=== PATIENT | male | born 1970 | race Hispanic/Latino ===

== ENCOUNTER 2017-05-21 22:38 | Inpatient (IN) | payer MEDICAID, OTHER ==
[2017-05-21] MEDS ORDERED: Lactated Ringer's 1,000 ML IV ONE (23:23)
[2017-05-21 23:37] LABS: ACETAMINOPHEN < 10.0 ug/mL (10.0-30.0); SALICYLATE < 1.0 mg/dL 1
[2017-05-21] MEDS ORDERED: levETIRAcetam 500 MG in Sodium Chloride 0.9% 100 ML IVPB STA (23:57)
--- NOTE | 2017-05-22 00:45 | C.PDOC ---
Time Seen by Provider: 05/21/17 23:04 Chief Complaint (Nursing): Substance Abuse Past Medical History Vital Signs: Last Vital Signs Temp Pulse 113 H 05/21/17 23:08 Resp 16 05/21/17 23:08 BP 106/56 L 05/21/17 23:08 Pulse Ox 99 05/21/17 23:08 - Medical History PMH: Seizures (?) Family History: States: Unknown Family Hx - Social History Hx Alcohol Use: Yes Hx Substance Use: No - Immunization History Hx Tetanus Toxoid Vaccination: No Hx Influenza Vaccination: No Hx Pneumococcal Vaccination: No ED Course And Treatment - Laboratory Results Lab Interpretation: Normal (neg etoh/tox) O2 Sat by Pulse Oximetry: 99 - Radiology CXR: Interpreted by Me CXR Interpretation: Yes: No Acute Disease - Other Rad CT head X-Ray: Read By Radiologist (L frontal encephalomalacia with ? tiny hyperdense area in the center.) Medical Decision Making Medical Decision Making: alcohol withdrawal seizure (known alcoholic) vs underlying epilepsy (L frontal encephalopthy) Alicia started 0030: d/w Dr. Puckett- Hospitalist covering self-pay pts, ok to tele Obs. Disposition Doctor Will See Patient In The: Hospital Counseled Patient/Family Regarding: Studies Performed, Diagnosis - Disposition Disposition: HOSPITALIZED Disposition Time: 00:45 Condition: GOOD - Clinical Impression Clinical Impression: Seizure
--- NOTE | 2017-05-22 00:59 | CT ---
EXAM: CT Head Without Intravenous Contrast CLINICAL HISTORY: 46 years old, male; Pain; Headache and other: Detox; Additional info: Seizure, alcoholic, ? bleed/trauma TECHNIQUE: Axial computed tomography images of the head/brain without intravenous contrast. All CT scans at this facility use one or more dose reduction techniques, viz.: automated exposure control; ma/kV adjustment per patient size (including targeted exams where dose is matched to indication; i.e. head); or iterative reconstruction technique. 859 images are submitted. Coronal and sagittal reformatted images were created and reviewed. COMPARISON: No relevant prior studies available. FINDINGS: Brain: Left frontal lobe encephalomalacia. Cerebral and cerebellar volume loss. Patchy hypodensity is seen in the periventricular and subcortical white matter. No hemorrhage. Ventricles: Unremarkable. No ventriculomegaly. Bones/joints: There is comminuted fracture deformity of the nasal bones. Correlation with patient's clinical examination and history may be helpful. Soft tissues: Unremarkable. Sinuses: Moderate left maxillary sinus disease. Patchy sinus disease. Mastoid air cells: Unremarkable. No mastoid effusion. Orbits: The globe and lens are intact. Dental: Multifocal left mandibular and maxillary periodontal and periapical lucency with retained roots and multifocal dental carious lesions. IMPRESSION: 1. No evidence of an acute intracranial hemorrhage, midline shift or mass effect is identified. 2. Multifocal left mandibular and maxillary periodontal and periapical lucency with retained roots and multifocal dental carious lesions. 3.There is comminuted fracture deformity of the nasal bones. Correlation with patient's clinical examination and history may be helpful.
[2017-05-22] MEDS ORDERED: levETIRAcetam 500 MG in Sodium Chloride 0.9% 100 ML IVPB SCH (01:00)
[2017-05-22 02:24] LABS: BARBITURATES, UR NEGATIVE (NEGATIVE); BENZODIAZEPINES, UR NEGATIVE (NEGATIVE); OPIATES, UR NEGATIVE (NEGATIVE); PHENCYCLIDINE, UR NEGATIVE (NEGATIVE)
[2017-05-22 03:05] LABS: BASO # 0.1 K/uL (0.0-0.2); BASO % 0.7 % (0.0-2.0); EOS % 0.1 % (0.0-4.0); HEMOGLOBIN 13.3 g/dL (12.0-18.0); LYMPH # 1.3 K/uL (1.0-4.3); MEAN CELL VOLUME 89.1 fL (80.0-94.0); MEAN CORPUSCULAR HEMOGLOBIN 29.5 pg (27.0-31.0); MEAN CORPUSCULAR HGB CONC 33.2 g/dL (33.0-37.0); MEAN PLATELET VOLUME 10.3 fL (7.2-11.7); MONO # 0.6 K/uL (0.0-0.8); MONO % 5.2 % (0.0-10.0); RBC 4.5 Mil/uL (4.40-5.90); RED CELL DISTRIBUTION WIDTH 14.3 % (11.5-14.5)
[2017-05-22] MEDS ORDERED: Thiamine 100 mg/ml Inj IV ONE (03:07)
[2017-05-22 03:16] LABS: SQUAMOUS EPITHIAL < 1 /hpf (0-5); URINE BILIRUBIN NEGATIVE (NEGATIVE); URINE BLOOD NEGATIVE (NEGATIVE); URINE CLARITY Clear (Clear); URINE COLOR Yellow (YELLOW); URINE GLUCOSE (UA) NORMAL (Normal); URINE HYALINE CAST 0-2 /lpf (0-2); URINE LEUKOCYTE ESTERASE NEG Leu/uL (Negative); URINE NITRATE NEGATIVE (NEGATIVE); URINE PROTEIN 1+ mg/dL (NEGATIVE); URINE UROBILINOGEN NORMAL mg/dL (0.2-1.0)
[2017-05-22] MEDS ORDERED: Thiamine 100 mg/ml Inj ONE (03:21)
[2017-05-22] MEDS: Sodium Chloride 0.9% 1,000 ML IV SCH ×2 (03:28→12:40)
[2017-05-22 03:31] LABS: ALB/GLOB RATIO 1.1 (1.0-2.1); ALT/SGPT 29 U/L (21-72); AST/SGOT 27 U/L (17-59); BLOOD UREA NITROGEN 15 mg/dL (9-20); CALCIUM 8.3 mg/dl (8.6-10.4); GFR AFRICAN-AMERICAN > 60; GFR NON-AFRICAN AMERICAN > 60; MAGNESIUM 1.9 mg/dL (1.6-2.3)
--- NOTE | 2017-05-22 03:37 | CP.PCM.HP ---
<Lindy Billy - Last Filed: 05/22/17 03:29> History of Present Illness - History of Present Illness History of Present Illness: HPI: 46M with PMH of seizures presents to the ED via ambulance for witnessed seizure. Patient was post ictal and unresponsive in the ED and had 2 additional seizures in the ED. Patient was given ativan 2 mg after the second seizure and he continues to be unresponsive however he moves with painful stimuli. ROS unattainable. PMH: alcoholism per EMR Present on Admission - Present on Admission Any Indicators Present on Admission: No Review of Systems - Review of Systems Systems not reviewed;Unavailable: Altered Mental Status Past Patient History - Past Social History Smoking Status: Never Smoked - NEUROLOGICAL Hx Seizures: Yes (?) - PSYCHIATRIC Hx Substance Use: No - SURGICAL HISTORY Other/Comment: SURGICAL HX UNKNOWN Meds Allergies/Adverse Reactions: Allergies Allergy/AdvReac Type Severity Reaction Status Date / Time No Known Allergies Allergy Verified 05/21/17 06:30 Physical Exam - Constitutional Appears: Unkempt Additional comments: unresponsive - Head Exam Head Exam: ATRAUMATIC Additional comments: flattening of the posterior parietal area - Eye Exam Eye Exam: PERRL - Respiratory Exam Respiratory Exam: Clear to Auscultation Bilateral, NORMAL BREATHING PATTERN. absent: Rales, Rhonchi, Wheezes - Cardiovascular Exam Cardiovascular Exam: Tachycardia, REGULAR RHYTHM, +S1, +S2 - GI/Abdominal Exam GI & Abdominal Exam: Normal Bowel Sounds, Soft. absent: Distended - Extremities Exam Extremities exam: Positive for: normal capillary refill Additional comments: erythema of hands b/l - Neurological Exam Neurological exam: Altered Additional comments: Jena Coma Scale: 7 (eyes 1, verbal 1, motor 5) - Skin Skin Exam: Dry, Intact, Normal Color, Warm Results - Vital Signs Recent Vital Signs: Last Vital Signs Temp Pulse 113 H 05/21/17 23:08 Resp 16 05/21/17 23:08 BP 106/56 L 05/21/17 23:08 Pulse Ox 99 05/22/17 02:58 - Labs Result Diagrams: 05/22/17 02:59 Labs: Laboratory Results - last 24 hr 05/21/17 05/21/17 05/22/17 23:18 23:18 01:56 WBC RBC Hgb Hct MCV MCH MCHC RDW Plt Count MPV Neut % (Auto) Lymph % (Auto) [place] % (Auto) Eos % (Auto) Baso % (Auto) Neut # Lymph # [place] # Eos # Baso # Salicylates < 1.0 Urine Opiates Screen Negative Urine Methadone Screen Negative Acetaminophen < 10.0 L Ur Barbiturates Screen Negative Ur Phencyclidine Scrn Negative Ur Amphetamines Screen Negative U Benzodiazepines Scrn Negative U Oth Cocaine Metabols Negative U Cannabinoids Screen Negative Alcohol, Quantitative < 10 05/22/17 02:59 WBC 12.0 H RBC 4.50 Hgb 13.3 Hct 40.0 MCV 89.1 D MCH 29.5 MCHC 33.2 RDW 14.3 Plt Count 230 MPV 10.3 Neut % (Auto) 83.0 H Lymph % (Auto) 11.0 L [place] % (Auto) 5.2 Eos % (Auto) 0.1 Baso % (Auto) 0.7 Neut # 10.0 H Lymph # 1.3 [place]ilton # 0.6 Eos # 0.0 Baso # 0.1 Salicylates Urine Opiates Screen Urine Methadone Screen Acetaminophen Ur Barbiturates Screen Ur Phencyclidine Scrn Ur Amphetamines Screen U Benzodiazepines Scrn U Oth Cocaine Metabols U Cannabinoids Screen Alcohol, Quantitative Assessment & Plan - Assessment and Plan (Free Text) Plan: Seizures * Seizure disorder vs alcohol withdrawal * CT head: No evidence of an acute intracranial hemorrhage, midline shift or mass effect is identified. Multifocal left mandibular and maxillary periodontal and periapical lucency with retained roots and multifocal dental carious lesions. There is comminuted fracture deformity of the nasal bones. * continue Keppra 750 MG IV BID * Ativan 1 mg IV PRN Seizure activity * Thiamine x 1 dose * NS @100/h * Neuro consult (Gloria) - recs appreciated * Swallow eval once patient becomes alert * Seizure precautions * Aspiration precautions * Monitor on telemetry - possible ICU admission * GCS: 7 - will not intubate as of now, patient saturating well even when non- rebreather mask removed Prophylaxis * Protonix IV * Heparin 5000U SC Q12h * SCDs <Cezar Puckett P - Last Filed: 05/22/17 06:30> Results - Vital Signs Recent Vital Signs: Last Vital Signs Temp 99.1 F 05/22/17 06:00 Pulse 88 05/22/17 03:44 Resp 16 05/22/17 03:44 BP 113/68 05/22/17 03:44 Pulse Ox 98 05/22/17 03:44 - Labs Result Diagrams: 05/22/17 02:59 05/22/17 02:59 Labs: Laboratory Results - last 24 hr 05/21/17 05/21/17 05/22/17 23:18 23:18 01:56 WBC RBC Hgb Hct MCV MCH MCHC RDW Plt Count MPV Neut % (Auto) Lymph % (Auto) Ch[place] % (Auto) Eos % (Auto) Baso % (Auto) Neut # Lymph # [place] # Eos # Baso # Sodium Potassium Chloride Carbon Dioxide Anion Gap BUN Creatinine Est GFR ( Amer) Est GFR (Non-Af Amer) Random Glucose Calcium Phosphorus Magnesium Total Bilirubin AST ALT Alkaline Phosphatase Total Protein Albumin Globulin Albumin/Globulin Ratio Urine Color Urine Clarity Urine pH Ur Specific [place] Urine Protein Urine Glucose (UA) Urine Ketones Urine Blood Urine Nitrate Urine Bilirubin Urine Urobilinogen Ur Leukocyte Esterase Urine WBC (Auto) Urine RBC (Auto) Ur Squamous Epith Cells Hyaline Casts Salicylates < 1.0 Urine Opiates Screen Negative Urine Methadone Screen Negative Acetaminophen < 10.0 L Ur Barbiturates Screen Negative Ur Phencyclidine Scrn Negative Ur Amphetamines Screen Negative U Benzodiazepines Scrn Negative U Oth Cocaine Metabols Negative U Cannabinoids Screen Negative Alcohol, Quantitative < 10 05/22/17 05/22/17 05/22/17 02:59 02:59 02:59 WBC 12.0 H RBC 4.50 Hgb 13.3 Hct 40.0 MCV 89.1 D MCH 29.5 MCHC 33.2 RDW 14.3 Plt Count 230 MPV 10.3 Neut % (Auto) 83.0 H Lymph % (Auto) 11.0 L [place] % (Auto) 5.2 Eos % (Auto) 0.1 Baso % (Auto) 0.7 Neut # 10.0 H Lymph # 1.3 Chilton # 0.6 Eos # 0.0 Baso # 0.1 Sodium 138 Potassium 3.7 Chloride 100 Carbon Dioxide 31 H Anion Gap 11 BUN 15 Creatinine 0.8 Est GFR ( Amer) > 60 Est GFR (Non-Af Amer) > 60 Random Glucose 81 Calcium 8.3 L Phosphorus 2.8 Magnesium 1.9 Total Bilirubin 0.9 AST 27 ALT 29 Alkaline Phosphatase 60 Total Protein 7.5 Albumin 4.0 Globulin 3.6 Albumin/Globulin Ratio 1.1 Urine Color Yellow Urine Clarity Clear Urine pH 5.0 Ur Specific [place] 1.025 Urine Protein 1+ H Urine Glucose (UA) Normal Urine Ketones Negative Urine Blood Negative Urine Nitrate Negative Urine Bilirubin Negative Urine Urobilinogen Normal Ur Leukocyte Esterase Neg Urine WBC (Auto) 1 Urine RBC (Auto) < 1 Ur Squamous Epith Cells < 1 Hyaline Casts 0-2 Salicylates Urine Opiates Screen Urine Methadone Screen Acetaminophen Ur Barbiturates Screen Ur Phencyclidine Scrn Ur Amphetamines Screen U Benzodiazepines Scrn U Oth Cocaine Metabols U Cannabinoids Screen Alcohol, Quantitative Attending/Attestation - Attestation I have personally seen and examined this patient.: Yes I have fully participated in the care of the patient.: Yes I have reviewed all pertinent clinical information: Yes Notes (Text): Assessment * Patient had back to back seizures at home then in ER responded with ativan 2mg im and keppra * H/o seizures in patient on keppra 750mg bid, h/o left frontal encephalomalacia * Clinically dry, in hospital ER for lethargy the day prior. Plan * IVF * IV keppra * Seizure, aspiration, fall precautions * EEG, neurology consult * More detailed information once patient is able to provide. * Observe in tele see orders for detail * GI/dvt prophylaxis.
[2017-05-22 07:18] LABS: BASO # 0.1 K/uL (0.0-0.2); BASO % 0.5 % (0.0-2.0); EOS % 0.2 % (0.0-4.0); HEMOGLOBIN 12.4 g/dL (12.0-18.0); LYMPH # 1.5 K/uL (1.0-4.3); LYMPH % 13.9 % (20.0-40.0); MEAN CELL VOLUME 89.8 fL (80.0-94.0); MEAN CORPUSCULAR HEMOGLOBIN 30.3 pg (27.0-31.0); MEAN CORPUSCULAR HGB CONC 33.7 g/dL (33.0-37.0); MEAN PLATELET VOLUME 9.8 fL (7.2-11.7); MONO # 0.8 K/uL (0.0-0.8); MONO % 7.8 % (0.0-10.0); NEUT # 8.2 K/uL (1.8-7.0); NEUT % 77.6 % (50.0-75.0); NRBC % 0.1 % (0.0-2.0); RBC 4.09 Mil/uL (4.40-5.90); RED CELL DISTRIBUTION WIDTH 13.9 % (11.5-14.5); WHITE BLOOD COUNT 10.6 K/uL (4.8-10.8)
[2017-05-22 07:30] LABS: ALB/GLOB RATIO 1.1 (1.0-2.1); ALBUMIN 3.5 g/dL (3.5-5.0); ALT/SGPT 41 U/L (21-72); AST/SGOT 28 U/L (17-59); BLOOD UREA NITROGEN 14 mg/dL (9-20); CALCIUM 8.1 mg/dl (8.6-10.4); GFR AFRICAN-AMERICAN > 60; GFR NON-AFRICAN AMERICAN > 60; MAGNESIUM 1.9 mg/dL (1.6-2.3)
--- NOTE | 2017-05-22 08:20 | RAD ---
PROCEDURE: CHEST RADIOGRAPH, 1 VIEW HISTORY: Detox/Psy COMPARISON: None available. FINDINGS: LUNGS: Minimal patchy increased markings at the left lung base which may represent minimal atelectasis versus subtle infiltrate. Question minimal blunting of the left costophrenic angle. Clinical correlation. PLEURA: As above. CARDIOVASCULAR: Normal. OSSEOUS STRUCTURES: No significant abnormalities. VISUALIZED UPPER ABDOMEN: Normal. OTHER FINDINGS: None. IMPRESSION: Minimal patchy increased markings at the left lung base which may represent minimal atelectasis versus subtle infiltrate. Question minimal blunting of the left costophrenic angle. Clinical correlation.
--- NOTE | 2017-05-22 11:12 | CP.PCM.PN ---
Subjective - Date & Time of Evaluation Date of Evaluation: 05/22/17 Time of Evaluation: 10:45 - Subjective Subjective: Hospitalist Progress Note Patient was seen and examined at 10:45 AM 05/22/17 ICU 14A 46 year old male who presented to the ER via EMS on 05/21/17 for the second time after he experienced Seizure at home. He was found to be unresponsive in the ER and had two witnessed seizures while in the ER. He had presented to the ER earlier in the day on 05/21/17 for alcohol intoxication but was found to be neurologically intact after observation and was discharged to home. Currently his exam was assisted by ICU Nurse Tia who speaks Vietnamese. Patient stated to me had no other medical problems other than Seizures. He states that he takes Keppra and Dilantin which are provided to him by [facility] but that he is not followed by Neurologist or a PMD. He could not provide any dosages. He stated that he has not had any surgeries. He lives alone and has a sister with whom he is not in contact with. He is not and without any children. 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 He could not provide details of his parents medical history. He stated that he was not sure about his CODE STATUS therefore he will be made full code. Upon ROS: NO chest pain NO SOB NO cough NO abdominal pain NO n/v/d/c NO burning/pain with urination NO edema NO headache Exam: Genera: He is aware of where he is, why he is here, month, year, but does not know who the president is. He is NAD. Tremulous hands noted with Asterixis HEENT: NCA (dry eschar on top of head), EOMI, PERRLA, NO cervical lymphadenopathy, NO pharyngeal erythema/exudate, NO thyromegaly, NO lacerations on tongue were noted Cardio: NS1 and NS2, NO M/R/G Resp: CTA B/L, NO R/R/W GI: BSx4, Soft, NT, ND, NO HSM, NO guarding/rebound tenderness Ext: NO edema, Capillary Refill is 2 seconds, Pulses are strong and equal Neuro: CN II through XII are grossly intact Assessment and Plan: 1). Seizure Patient is able to provide history as detailed in HPI above. However he is slow to answer most of the times and at times does not seem sure in his responses CT head: No evidence of an acute intracranial hemorrhage, midline shift or mass effect is identified. Multifocal left mandibular and maxillary periodontal and periapical lucency with retained roots and multifocal dental carious lesions. There is comminuted fracture deformity of the nasal bones. Keppra 750 mg IV Q12H Ativan 1 mg IV Q6H PRN Seizure Neurology Dr. Castro Status: Acute 2). Alcohol Withdrawl Will start Ativan taper PO once bedside swallow evaluation is performed by Nurse Tia Psychiatry Dr. Parker Thiamine 100 mg PO 1x/day Folic Acid 1 mg PO 1x/day MVI PO 1x/day Status: Acute 3). Prophylaxis Protonix 40 mg PO 1x/day Heparin 5,000 Units SC Q12H Regular Diet Imer Silveira D.O. Objective - Vital Signs/Intake and Output Vital Signs (last 24 hours): Temp Pulse Resp BP Pulse Ox 97.9 F 88 16 113/68 98 05/22/17 08:11 05/22/17 03:44 05/22/17 03:44 05/22/17 03:44 05/22/17 03:44 Intake and Output: 05/22/17 05/22/17 06:59 18:59 Intake Total 100 Output Total 300 Balance -200 - Medications Medications: Current Medications Heparin Sodium (Porcine) (Heparin) 5,000 units SC Q12 MOLLY Sodium Chloride (Sodium Chloride 0.9%) 1,000 mls @ 100 mls/hr IV .Q10H MOLLY Last Admin: 05/22/17 03:28 Dose: 100 mls/hr Levetiracetam 750 mg/ Sodium (Chloride) 107.5 mls @ 420 mls/hr IVPB Q12H MOLLY Last Admin: 05/22/17 03:31 Dose: Not Given Lorazepam (Ativan) 1 mg IVP Q6H PRN PRN Reason: Seizure activity Last Admin: 05/22/17 10:49 Dose: 1 mg Pantoprazole Sodium (Protonix Inj) 40 mg IVP DAILY MOLLY Last Admin: 05/22/17 10:49 Dose: 40 mg - Labs Labs: 05/22/17 07:09 05/22/17 07:09
[2017-05-22] MEDS: Multiple Vitamins Tab PO SCH (11:36)
--- NOTE | 2017-05-22 20:55 | CARD ---
APPROVED REPORT EKG Measurement Heart [id number] <Conclusion> Normal sinus rhythm Normal ECG
[2017-05-23] MEDS: Sodium Chloride 0.9% 1,000 ML IV SCH (00:47)
[2017-05-23 06:35] LABS: BASO % 0.3 % (0.0-2.0); EOS # 0.2 K/uL (0.0-0.7); EOS % 3.8 % (0.0-4.0); HEMOGLOBIN 12.3 g/dL (12.0-18.0); LYMPH % 32.9 % (20.0-40.0); MEAN CELL VOLUME 89.3 fL (80.0-94.0); MEAN CORPUSCULAR HEMOGLOBIN 30.2 pg (27.0-31.0); MEAN CORPUSCULAR HGB CONC 33.8 g/dL (33.0-37.0); MEAN PLATELET VOLUME 9.9 fL (7.2-11.7); MONO # 0.4 K/uL (0.0-0.8); MONO % 7.4 % (0.0-10.0); NEUT # 3.3 K/uL (1.8-7.0); NEUT % 55.6 % (50.0-75.0); NRBC % 0.1 % (0.0-2.0); RBC 4.07 Mil/uL (4.40-5.90); RED CELL DISTRIBUTION WIDTH 13.8 % (11.5-14.5); WHITE BLOOD COUNT 5.9 K/uL (4.8-10.8)
[2017-05-23 06:51] LABS: ALB/GLOB RATIO 1.6 (1.0-2.1); ALBUMIN 3.2 g/dL (3.5-5.0); ALT/SGPT 37 U/L (21-72); AST/SGOT 21 U/L (17-59); BLOOD UREA NITROGEN 14 mg/dL (9-20); CALCIUM 7.9 mg/dl (8.6-10.4); GFR AFRICAN-AMERICAN > 60; GFR NON-AFRICAN AMERICAN > 60; MAGNESIUM 1.7 mg/dL (1.6-2.3)
[2017-05-23] MEDS: Multiple Vitamins Tab PO SCH (09:15)
--- NOTE | 2017-05-23 09:21 | CP.PCM.PN ---
<Sulma Mondragon - Last Filed: 05/23/17 15:48> Subjective - Date & Time of Evaluation Date of Evaluation: 05/23/17 Time of Evaluation: 09:21 - Subjective Subjective: Medicine Progress Note for Dr. Silveira Patient was seen and examined at bedside in no acute distress. Patient reports feeling okay today and only complains of feeling cold and hungry. Patient denies having chest pain, abdominal pain, nausea, vomiting, fevers, headaches, and leg pain. Objective - Vital Signs/Intake and Output Vital Signs (last 24 hours): Temp Pulse Resp BP Pulse Ox 97.5 F L 75 16 120/75 95 05/23/17 08:00 05/23/17 08:00 05/23/17 08:00 05/23/17 08:00 05/23/17 08:00 Intake and Output: 05/23/17 05/23/17 06:59 18:59 Intake Total 1500 Output Total 1200 Balance 300 - Medications Medications: Current Medications Folic Acid (Folic Acid) 1 mg PO DAILY [facility] Last Admin: 05/23/17 09:15 Dose: 1 mg Heparin Sodium (Porcine) (Heparin) 5,000 units SC Q12 [facility] Last Admin: 05/23/17 09:15 Dose: 5,000 units Sodium Chloride (Sodium Chloride 0.9%) 1,000 mls @ 100 mls/hr IV .Q10H [facility] Last Admin: 05/23/17 00:47 Dose: 100 mls/hr Levetiracetam 750 mg/ Sodium (Chloride) 107.5 mls @ 420 mls/hr IVPB Q12H [facility] Last Admin: 05/23/17 03:05 Dose: 420 mls/hr Lorazepam (Ativan) 1 mg IVP Q6H PRN PRN Reason: Seizure activity Last Admin: 05/22/17 10:49 Dose: 1 mg Lorazepam (Ativan) 2 mg PO Q8H MOLLY PRN Reason: Taper Stop: 05/27/17 13:59 Last Admin: 05/23/17 06:00 Dose: 2 mg Multivitamins (Hexavitamin) 1 tab PO DAILY [facility] Last Admin: 05/23/17 09:15 Dose: 1 tab Pantoprazole Sodium (Protonix Inj) 40 mg IVP DAILY [facility] Last Admin: 12/12/17 10:49 Dose: 40 mg Thiamine HCl (Vitamin B1 Tab) 100 mg PO DAILY MOLLY Last Admin: 05/23/17 09:15 Dose: 100 mg - Labs Labs: 05/23/17 06:26 05/23/17 06:23 - Constitutional Appears: No Acute Distress - Head Exam Head Exam: ATRAUMATIC, NORMAL INSPECTION - Eye Exam Eye Exam: EOMI, Normal appearance - ENT Exam ENT Exam: Mucous Membranes Moist - Respiratory Exam Respiratory Exam: NORMAL BREATHING PATTERN. absent: Rales, Rhonchi, Wheezes, Respiratory Distress - Cardiovascular Exam Cardiovascular Exam: REGULAR RHYTHM, +S1, +S2 - GI/Abdominal Exam GI & Abdominal Exam: Soft, Normal Bowel Sounds. absent: Distended, Firm, Tenderness - Extremities Exam Extremities Exam: Normal Inspection - Neurological Exam Neurological Exam: Alert, Awake Additional comments: no asterixis noted - Psychiatric Exam Psychiatric exam: Flat Affect - Skin Skin Exam: Dry, Intact, Normal Color, Warm Assessment and Plan (1) Seizure Assessment & Plan: * Seizure disorder vs alcohol withdrawal * Head CT: No evidence of an acute intracranial hemorrhage, midline shift or mass effect is identified. Multifocal left mandibular and maxillary periodontal and periapical lucency with retained roots and multifocal dental carious lesions. There is comminuted fracture deformity of the nasal bones. * Chest xray PA/Lat: ordered, f/u results * Seizure precautions * Aspiration precautions * Continue to monitor on telemetry * Neuro consult (Toño) - recs appreciated * Will plan to transfer to psychiatry for detox once medically cleared and cleared by neurology. * Medications: * Continue Ativan 1 mg IV PRN Seizure activity * Continue NS @100/h * Continue Keppra 750 MG IV BID * Patient reports he used to take Keppra and Phenytoin. He reports he does not know who prescribed them or specifically where he got the prescription from; however, he says he gets them from [facility]. Called [facility] pharmacy on 05/23/17, both inpatient and outpatient, who states they do not have any record of this patient on file. * Phenytoin level: f/u results Status: Acute (2) Alcohol intoxication Assessment & Plan: * Psychiatry consulted, Dr. Parker, help appreciated * Continue Thiamine 100 mg PO daily * Continue Folic Acid 1 mg PO daily * Continue Multivitamins PO daily * Continue Ativan 2mg PO Q8h MOLLY and 1mg PO Q6 PRN Status: Acute (3) Prophylactic measure Assessment & Plan: * Protonix IV * Heparin 5000U SC Q12h * SCDs Status: Acute <Deepak Silveirapedrito Stevens - Last Filed: 05/23/17 18:55> Objective - Vital Signs/Intake and Output Vital Signs (last 24 hours): Temp Pulse Resp BP Pulse Ox 98.3 F 87 16 121/80 95 05/23/17 12:00 05/23/17 12:00 05/23/17 12:00 05/23/17 12:00 05/23/17 08:00 Intake and Output: 05/23/17 05/23/17 06:59 18:59 Intake Total 1500 1080 Output Total 1200 2100 Balance 300 -1020 - Medications Medications: Current Medications Folic Acid (Folic Acid) 1 mg PO DAILY [facility] Last Admin: 05/23/17 09:15 Dose: 1 mg Heparin Sodium (Porcine) (Heparin) 5,000 units SC Q12 MOLLY Last Admin: 05/23/17 09:15 Dose: 5,000 units Levetiracetam 750 mg/ Sodium (Chloride) 107.5 mls @ 420 mls/hr IVPB Q12H MOLLY Last Admin: 05/23/17 15:57 Dose: 420 mls/hr Lorazepam (Ativan) 1 mg IVP Q6H PRN PRN Reason: Seizure activity Last Admin: 05/22/17 10:49 Dose: 1 mg Lorazepam (Ativan) 1 mg PO Q6H MOLLY PRN Reason: Taper Stop: 05/27/17 13:59 Last Admin: 05/23/17 13:42 Dose: 1 mg Multivitamins (Hexavitamin) 1 tab PO DAILY MOLLY Last Admin: 05/23/17 09:15 Dose: 1 tab Pantoprazole Sodium (Protonix Ec Tab) 40 mg PO DAILY MOLLY Last Admin: 05/23/17 11:52 Dose: 40 mg Thiamine HCl (Vitamin B1 Tab) 100 mg PO DAILY MOLLY Last Admin: 05/23/17 09:15 Dose: 100 mg - Labs Labs: 05/23/17 06:26 05/23/17 06:23 Attending/Attestation - Attestation I have personally seen and examined this patient.: Yes I have fully participated in the care of the patient.: Yes I have reviewed all pertinent clinical information, including history, physical exam and plan: Yes Notes (Text): 05/23/17 18:53 Hospitalist Progress Note Patient was seen and examined at 10:45 AM 05/23/17 ICU 14A 46 year old male who presented to the ER via EMS on 05/21/17 for the second time after he experienced Seizure at home. He was found to be unresponsive in the ER and had two witnessed seizures while in the ER. He had presented to the ER earlier in the day on 05/21/17 for alcohol intoxication but was found to be neurologically intact after observation and was discharged to home. His exam on 05/22/17 which was assisted by ICU Nurse Tia who speaks [place] but patient also understands and responds in Serbian. Patient stated to me had no other medical problems other than Seizures. He states that he takes Keppra and Dilantin which are provided to him by [facility] but that he is not followed by Neurologist or a PMD. He could not provide any dosages. He stated that he has not had any surgeries. He lives alone and has a sister with whom he is not in contact with. He is not and without any children. 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 He could not provide details of his parents medical history. He stated that he was not sure about his CODE STATUS therefore he will be made full code. Upon ROS: NO chest pain NO SOB NO cough NO abdominal pain NO n/v/d/c NO burning/pain with urination NO edema NO headache Exam: Genera: He is aware of where he is, why he is here, month, year, and now knows that the president is [place]. He is NAD. Tremulous hands and Asterixis are NO LONGER PRESENT HEENT: NCA (dry eschar on top of head), EOMI, PERRLA, NO cervical lymphadenopathy, NO pharyngeal erythema/exudate, NO thyromegaly, NO lacerations on tongue were noted Cardio: NS1 and NS2, NO M/R/G Resp: CTA B/L, NO R/R/W GI: BSx4, Soft, NT, ND, NO HSM, NO guarding/rebound tenderness Ext: NO edema, Capillary Refill is 2 seconds, Pulses are strong and equal Neuro: CN II through XII are grossly intact Assessment and Plan: 1). Seizure Patient is able to provide history as detailed in HPI above. However he is still slow to answer most of the times and at times does not seem sure in his responses CT head: No evidence of an acute intracranial hemorrhage, midline shift or mass effect is identified. Multifocal left mandibular and maxillary periodontal and periapical lucency with retained roots and multifocal dental carious lesions. There is comminuted fracture deformity of the nasal bones. Keppra 750 mg IV Q12H Ativan 1 mg IV Q6H PRN Seizure Neurology Dr. Lundberg Status: Acute 2). Alcohol Withdrawl Currently on Day #2 of [address] Taper Psych[address] Parker Thiamine 100 mg PO 1x/day Folic Acid 1 mg PO 1x/day MVI PO 1x/day Status: Acute 3). Prophylaxis Protonix 40 mg PO 1x/day Heparin 5,000 Units SC Q12H Regular Diet Imer Silveira D.O.
--- NOTE | 2017-05-23 10:13 | PCM.PSYCH ---
Initial Psychiatric Evaluation - Initial Psychiatric Evaluation Type of Admission: Voluntary Legal Status: Capacity History of Present Illness and Precipitating Events: This is a 46 y/o CM, currently living with sister with a long history of seizures was admitted in ICU after a seizure. Today patient was consulted because of altered mental status. As per the staff pt at times becomes very aggressive and agitated. As per the nephew, patient at times becomes very confused, demented, and internally preoccupied. Patient was found to be demented/delirious during the interview. He remained alert but disoriented to the place and time. He says he has no idea why he in this hospital. He thinks that Gautam is the president of the . However, patient denied any irritability and denied any suicidal ideation, any homicidal ideation or any auditory or visual hallucinations. Patient reports drinking few beers daily but denies any substance abuse. Past medical history Seizures Current Medications: Active Medications Generic Name Dose Route Start Last Admin Trade Name Freq PRN Reason Stop Dose Admin Folic Acid 1 mg 05/22/17 11:30 05/23/17 09:15 Folic Acid PO 1 mg DAILY MOLLY Administration Heparin Sodium (Porcine) 5,000 units 05/22/17 10:00 05/23/17 09:15 Heparin SC 5,000 units Q12 MOLLY Administration Sodium Chloride 1,000 mls @ 100 mls/hr 05/22/17 03:15 05/23/17 00:47 Sodium Chloride 0.9% IV 100 mls/hr .Q10H MOLLY Administration Levetiracetam 750 mg/ Sodium 107.5 mls @ 420 mls/hr 05/22/17 04:00 05/23/17 03:05 Chloride IVPB 420 mls/hr Q12H MOLLY Administration Lorazepam 1 mg 05/22/17 03:07 05/22/17 10:49 Ativan IVP 1 mg Q6H PRN Administration Seizure activity Lorazepam 2 mg 05/22/17 14:00 05/23/17 06:00 Ativan PO 05/27/17 13:59 2 mg Q8H MOLLY Administration Taper Multivitamins 1 tab 05/22/17 11:30 05/23/17 09:15 Hexavitamin PO 1 tab DAILY MOLLY Administration Pantoprazole Sodium 40 mg 05/22/17 10:00 05/22/17 10:49 Protonix Inj IVP 40 mg DAILY MOLLY Administration Thiamine HCl 100 mg 05/23/17 10:00 05/23/17 09:15 Vitamin B1 Tab PO 100 mg DAILY MOLLY Administration Past Psychiatric History - Past Psychiatric History Previous Treatment History: None Pertinent Medical Hx (Current Medical&Sleep Prob, Allergies): Allergies Allergy/AdvReac Type Severity Reaction Status Date / Time No Known Allergies Allergy Verified 05/21/17 06:30 No Known Home Med 05/21/17 Review of Systems - Review of Systems All systems: reviewed and no additional remarkable complaints except - Psychiatric Psychiatric: Anxiety, Irritability Mental Status Examination - Personal Presentation Personal Presentation: Looks older than stated age - Affect Affect: Constricted - Motor Activity Motor Activity: Psychomotor Retardation - Reliability in Providing Information Reliability in Providing Information: Poor, due to alteration in thoughts - Speech Speech: Disorganized - Mood Mood: Anxious - Formal Thought Process Formal Thought Process: Loosening of associations - Obsessions/Compulsions Obsessions: No Compulsions: No - Cognitive Functions Orientation: Person Sensorium: Alert Abstract Thinking: [place] Estimate of Intelligence: Below average Judgement: Imparied, as evidence by: Poor judgement, Imparied, as evidence by: Lack of insight into illness - Risk Risk: Diminished functioning DSM 5 DX - DSM 5 DSM 5 Diagnosis: Delirium Alcohol use disorder mild - Recommended/Plan of Treatment Treatment Recommendations and Plan of Treatment: Pt remained disoriented and confused. Continue same meds. Psychiatry will follow up - Smoking Cessation Smoking Cessation Initiated: No
[2017-05-23] MEDS: Pantoprazole 40 mg EC Tab PO SCH (11:52)
--- NOTE | 2017-05-23 12:17 | RAD ---
HISTORY: r/o aspiration pneumonia COMPARISON: Comparison made with prior study 05/22/2017 TECHNIQUE: Chest PA and lateral FINDINGS: LUNGS: Re- demonstrated are metallic clips in the right lung base with what probably represent chronic scarring in the right mid to lower lung field. Slight volume loss right mid to lower lung field as well. No focal consolidation. PLEURA: No significant pleural effusion identified. No pneumothorax apparent. CARDIOVASCULAR: Normal. OSSEOUS STRUCTURES: No significant abnormalities. VISUALIZED UPPER ABDOMEN: Normal. OTHER FINDINGS: None. IMPRESSION: Re- demonstrated are metallic clips in the right lung base with what probably represent chronic scarring in the right mid to lower lung field. Slight volume loss right mid to lower lung field as well. No focal consolidation. PLEURA:
--- NOTE | 2017-05-24 06:53 | CP.PCM.PN ---
<Sulma Mondragon - Last Filed: 05/24/17 15:52> Subjective - Date & Time of Evaluation Date of Evaluation: 05/24/17 Time of Evaluation: 06:53 - Subjective Subjective: Medicine Progress Note for Dr. Silveira Patient was seen and examined at bedside in no acute distress. Patient reports feeling okay today and has no complaints. Patient reports he use to take Keppra and Dilantin prescribed by [facility], but ran out and has not taken medication for months. Yesterday, patient reports he was given these medication from [facility]. He also reports he has not had a seizure for months. Patient is oriented to person, but not time or place. Patient denies having chest pain, abdominal pain, nausea, vomiting, fevers, dizziness, headaches, and leg pain. Objective - Vital Signs/Intake and Output Vital Signs (last 24 hours): Temp Pulse Resp BP Pulse Ox 98.2 F 87 16 121/80 95 05/23/17 20:00 05/23/17 12:00 05/23/17 12:00 05/23/17 12:00 05/23/17 08:00 Intake and Output: 05/23/17 05/24/17 18:59 06:59 Intake Total 1080 Output Total 2100 Balance -1020 - Medications Medications: Current Medications Folic Acid (Folic Acid) 1 mg PO DAILY [facility] Last Admin: 05/23/17 09:15 Dose: 1 mg Heparin Sodium (Porcine) (Heparin) 5,000 units SC Q12 [facility] Last Admin: 05/23/17 22:55 Dose: 5,000 units Levetiracetam 750 mg/ Sodium (Chloride) 107.5 mls @ 420 mls/hr IVPB Q12H [facility] Last Admin: 05/24/17 04:35 Dose: 420 mls/hr Lorazepam (Ativan) 1 mg IVP Q6H PRN PRN Reason: Seizure activity Last Admin: 05/22/17 10:49 Dose: 1 mg Lorazepam (Ativan) 1 mg PO Q6H MOLLY PRN Reason: Taper Stop: 05/27/17 13:59 Last Admin: 05/24/17 01:44 Dose: 1 mg Multivitamins (Hexavitamin) 1 tab PO DAILY [facility] Last Admin: 05/23/17 09:15 Dose: 1 tab Pantoprazole Sodium (Protonix Ec Tab) 40 mg PO DAILY [facility] Last Admin: 05/23/17 11:52 Dose: 40 mg Thiamine HCl (Vitamin B1 Tab) 100 mg PO DAILY [facility] Last Admin: 05/23/17 09:15 Dose: 100 mg - Labs Labs: 05/23/17 06:26 05/23/17 06:23 - Additional Findings Additional findings: - Constitutional Appears: No Acute Distress - Head Exam Head Exam: ATRAUMATIC, NORMAL INSPECTION - Eye Exam Eye Exam: EOMI, Normal appearance - ENT Exam ENT Exam: Mucous Membranes Moist - Respiratory Exam Respiratory Exam: NORMAL BREATHING PATTERN. absent: Rales, Rhonchi, Wheezes, Respiratory Distress - Cardiovascular Exam Cardiovascular Exam: REGULAR RHYTHM, +S1, +S2 - GI/Abdominal Exam GI & Abdominal Exam: Soft, Normal Bowel Sounds. absent: Distended, Firm, Tenderness - Extremities Exam Extremities Exam: Normal Inspection - Neurological Exam Neurological Exam: Alert, Awake; absent: orientedx3 Additional comments: no asterixis noted - Psychiatric Exam Psychiatric exam: Flat Affect - Skin Skin Exam: Dry, Intact, Normal Color, Warm Assessment and Plan (1) Seizure Status: Acute (2) Alcohol intoxication Status: Acute (3) Change in mental status Status: Acute (4) Prophylactic measure Status: Acute - Assessment and Plan (Free Text) Plan: Assessment and Plan (1) Seizure Assessment & Plan: * Seizure disorder vs alcohol withdrawal * Head CT: No evidence of an acute intracranial hemorrhage, midline shift or mass effect is identified. Multifocal left mandibular and maxillary periodontal and periapical lucency with retained roots and multifocal dental carious lesions. There is comminuted fracture deformity of the nasal bones. * Chest xray PA/Lat: ordered, f/u results * Seizure precautions * Aspiration precautions * Continue to monitor on telemetry * Neuro consult (Toño) - recs appreciated * Ordered EEG and recommended outpatient followup * Continue Keppra * EEG: f/u results * Brain MRI: f/u results * Medications: * Discontinue Ativan 1 mg IV PRN Seizure activity * Keppra 1000mg IV BID [increased from 750mg BID as per Dr. Lundberg on 05/24] * Patient reports he used to take Keppra and Phenytoin. He reports he does not know who prescribed them or specifically where he got the prescription from; however, he says he gets them from [facility]. Called [facility] pharmacy on 05/23/17, both inpatient and outpatient, who states they do not have any record of this patient on file. * As of 05/24, patient then reports he filled his prescriptions at [facility] was called and reported they have 16 patients with the same name and , but were all different patients. There is no other information provided by patient records (SSN, telephone, address) to get more information from [facility]. Prescription bottle was found in patient's bag; information was faded , and only legible words were [facility]. Called pharmacy ([phone]) at 3:45pm, but pharmacy was closed (Hours 8am-3pm). * Phenytoin level: f/u results Status: Acute (2) Alcohol intoxication Assessment & Plan: * Psychiatry consulted, Dr. Mcgee, help appreciated * Continue Thiamine 100 mg PO daily * Continue Folic Acid 1 mg PO daily * Continue Multivitamins PO daily * Discontinue Ativan 2mg PO Q8h MOLLY and 1mg PO Q6 PRN-- no signs/symptoms of alcohol withdrawal. Status: Acute (3) Change in Mental Status Assessment & Plan: * Possibly due to progressing Wernicke-Korsakoff? * Continue folic acid, thiamine, multivitamins * EEG: f/u results * Brain MRI: f/u results * Vitamin B1: f/u results * TSH/free T4: f/u results * HIV: f/u results * Hepatitis panel: f/u results * RPR: f/u results (4) Prophylactic measure Assessment & Plan: * Protonix IV * Heparin 5000U SC Q12h * SCDs Status: Acute <Imer Silveira - Last Filed: 05/24/17 18:58> Objective - Vital Signs/Intake and Output Vital Signs (last 24 hours): Temp Pulse Resp BP Pulse Ox 98.5 F 75 20 107/70 96 05/24/17 15:25 05/24/17 15:30 05/24/17 15:25 05/24/17 15:25 05/24/17 15:25 Intake and Output: 05/24/17 05/24/17 06:59 18:59 Intake Total 360 Output Total 600 Balance -240 - Medications Medications: Current Medications Folic Acid (Folic Acid) 1 mg PO DAILY [facility] Last Admin: 05/24/17 09:24 Dose: 1 mg Heparin Sodium (Porcine) (Heparin) 5,000 units SC Q12 [facility] Last Admin: 05/24/17 09:24 Dose: 5,000 units Levetiracetam 1,000 mg/ Sodium (Chloride) 110 mls @ 420 mls/hr IVPB Q12H [facility] Last Admin: 05/24/17 17:34 Dose: 420 mls/hr Lorazepam (Ativan) 1 mg IVP Q6H PRN PRN Reason: Seizure activity Last Admin: 05/22/17 10:49 Dose: 1 mg Lorazepam (Ativan) 1 mg PO Q8H MOLLY PRN Reason: Taper Stop: 05/27/17 13:59 Last Admin: 05/24/17 14:00 Dose: Not Given Multivitamins (Hexavitamin) 1 tab PO DAILY [facility] Last Admin: 05/24/17 09:24 Dose: 1 tab Pantoprazole Sodium (Protonix Ec Tab) 40 mg PO DAILY [facility] Last Admin: 05/24/17 09:24 Dose: 40 mg Thiamine HCl (Vitamin B1 Tab) 100 mg PO DAILY [facility] Last Admin: 05/24/17 09:24 Dose: 100 mg - Labs Labs: 05/23/17 06:26 05/23/17 06:23 Attending/Attestation - Attestation I have personally seen and examined this patient.: Yes I have fully participated in the care of the patient.: Yes I have reviewed all pertinent clinical information, including history, physical exam and plan: Yes Notes (Text): 05/24/17 18:41 Hospitalist Progress Note Patient was seen and examined at 1:00 PM 05/24/17 ICU 14A and I was present when Psychiatrist Dr. Mcgee interviewed patient. 46 year old male who presented to the ER via EMS on 05/21/17 for the second time after he experienced Seizure at home. He was found to be unresponsive in the ER and had two witnessed seizures while in the ER. He had presented to the ER earlier in the day on 05/21/17 for alcohol intoxication but was found to be neurologically intact after observation and was discharged to home. His exam on 05/22/17 which was assisted by ICU Nurse Tia who speaks [place] African but patient also understands and responds in Austrian. Patient stated to me had no other medical problems other than Seizures. He states that he takes Keppra and Dilantin which are provided to him by [facility] but that he is not followed by Neurologist or a PMD. He could not provide any dosages. He stated that he has not had any surgeries. He lives alone and has a sister with whom he is not in contact with. He is not and without any children. 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 He could not provide details of his parents medical history. He stated that he was not sure about his CODE STATUS therefore he will be made full code. Upon ROS: NO chest pain NO SOB NO cough NO abdominal pain NO n/v/d/c NO burning/pain with urination NO edema NO headache Exam: General: Patient is NOT in any distress but now appears to be more confused. He stated to Dr. Mcgee that lives in [facility] but could not provide address. He does NOT know today's date or day but knows it is May 2017. He now states that he does not know who the president is while on 05/23/17 he stated that it was Trump. He stated that his last Seizure was 2 weeks ago while on 05/21/17 during my exam he stated that it was after he got home from being discharged from the ER. He still could not provide information as to who was providing him with his home medication or what these medications were. At the end of my exam today I told him the date, president, and that he was in [facility] in [place] and had him repeat this information back to me. He continues to be slow in responding to questions (it will take him at least 10 to 15 seconds for him to respond to a question) HEENT: NCA (dry eschar on top of head), EOMI, PERRLA, NO cervical lymphadenopathy, NO pharyngeal erythema/exudate, NO thyromegaly, NO lacerations on tongue were noted, NO NYSTAGMUS, NO EYELIP Drooping Cardio: NS1 and NS2, NO M/R/G Resp: CTA B/L, NO R/R/W GI: BSx4, Soft, NT, ND, NO HSM, NO guarding/rebound tenderness Ext: NO edema, Capillary Refill is 2 seconds, Pulses are strong and equal Neuro: CN II through XII are grossly intact, 5/5 muscle strength against my resistance with flexion and extension of bilateral UE and LE, 2/4 DTR bilateral UE and LE, NO loss of sensation in dermatomal distruction of bilateral UE and LE (as per patient but this may not be reliable) Assessment and Plan: 1). Seizure CT head: No evidence of an acute intracranial hemorrhage, midline shift or mass effect is identified. Multifocal left mandibular and maxillary periodontal and periapical lucency with retained roots and multifocal dental carious lesions. There is comminuted fracture deformity of the nasal bones. F/U MRI Brain with and without contrast F/U EEG Keppra increased to 1,000 mg IV Q12H Ativan 1 mg IV Q6H PRN Seizure Neurology Dr. Lundberg Status: Acute 2). Alcohol Withdrawl Currently on Day #3 of Ativan Taper which was discontinued as this may have possibly contributed to his confusion and he was no longer tremulous and no longer with [facility] Psychiat[facility] Dr. Mcgee Thiamine 100 mg PO 1x/day Folic Acid 1 mg PO 1x/day MVI PO 1x/day Status: Acute 3). Change Mental Status Increased confusion/memory issues as noted in General portion of exm Secondary to Ativan Taper? Secondary to possible Wernicke Korsakoff? F/U EEG F/U MRI Brain with and without contrast F/U TSH, T4, Vitamin B1, Vitamin B12, Folic Acid, RPR, HIV, Hepatitis Panel Reconsult Neurology Dr. Lundberg for further recommendations 4). Prophylaxis Protonix 40 mg PO 1x/day Heparin 5,000 Units SC Q12H Regular Diet F/U PT/OT evaluation Multiple attempts made to call [facility] [phone] (a bottle of unspecified drug was found on patient's person and all information was faded except what could be made out was that the medication was filled at [facility]) but message stated that the Pharmacy was closed. Attempts will be made again on 05/25/17. Imer Silveira D.O.
--- NOTE | 2017-05-24 07:37 | CP.PCM.CON ---
History of Present Illness - History of Present Illness History of Present Illness: CONSULT DICTATED REC SEIZURES -? SUB THERAPUETIC DOSE AED CONTINUE KEPPRA TO KEEP THERAPEUTIC RANGE EEG /MRI BRAIN CLINCALLY STABLE - FU AN OP Past Patient History - Past Medical History & Family History Past Medical History?: Yes - Past Social History Smoking Status: Never Smoked - CARDIAC Hx Cardiac Disorders: No - PULMONARY Hx Respiratory Disorders: No - NEUROLOGICAL Hx Seizures: Yes (?) - HEENT Hx HEENT Problems: No - RENAL Hx Chronic Kidney Disease: No - ENDOCRINE/METABOLIC Hx Endocrine Disorders: No - HEMATOLOGICAL/ONCOLOGICAL Hx Blood Disorders: No - INTEGUMENTARY Hx Dermatological Problems: No - MUSCULOSKELETAL/RHEUMATOLOGICAL Hx Musculoskeletal Disorders: No Hx Falls: Yes - GASTROINTESTINAL Hx Gastrointestinal Disorders: No - GENITOURINARY/GYNECOLOGICAL Hx Genitourinary Disorders: No - PSYCHIATRIC Hx Substance Use: No Other/Comment: etoh abuse - SURGICAL HISTORY Hx Surgeries: No Other/Comment: SURGICAL HX UNKNOWN - ANESTHESIA Hx Anesthesia: No Meds Allergies/Adverse Reactions: Allergies Allergy/AdvReac Type Severity Reaction Status Date / Time No Known Allergies Allergy Verified 05/21/17 06:30 - Medications Medications: Current Medications Folic Acid (Folic Acid) 1 mg PO DAILY [facility] Last Admin: 05/23/17 09:15 Dose: 1 mg Heparin Sodium (Porcine) (Heparin) 5,000 units SC Q12 [facility] Last Admin: 05/23/17 22:55 Dose: 5,000 units Levetiracetam 750 mg/ Sodium (Chloride) 107.5 mls @ 420 mls/hr IVPB Q12H [facility] Last Admin: 05/24/17 04:35 Dose: 420 mls/hr Lorazepam (Ativan) 1 mg IVP Q6H PRN PRN Reason: Seizure activity Last Admin: 05/22/17 10:49 Dose: 1 mg Lorazepam (Ativan) 1 mg PO Q6H MOLLY PRN Reason: Taper Stop: 05/27/17 13:59 Last Admin: 05/24/17 01:44 Dose: 1 mg Multivitamins (Hexavitamin) 1 tab PO DAILY [facility] Last Admin: 05/23/17 09:15 Dose: 1 tab Pantoprazole Sodium (Protonix Ec Tab) 40 mg PO DAILY [facility] Last Admin: 05/23/17 11:52 Dose: 40 mg Thiamine HCl (Vitamin B1 Tab) 100 mg PO DAILY [facility] Last Admin: 05/23/17 09:15 Dose: 100 mg Results - Vital Signs Recent Vital Signs: Last Vital Signs Temp 98.2 F 05/23/17 20:00 Pulse 87 05/23/17 12:00 Resp 16 05/23/17 12:00 BP 121/80 05/23/17 12:00 Pulse Ox 95 05/23/17 08:00 - Labs Result Diagrams: 05/23/17 06:26 05/23/17 06:23
--- NOTE | 2017-05-24 09:15 | CON ---
DATE: 05/24/2017 TIME OF EVALUATION: 06:30 a.m. REASON FOR THE CONSULTATION: Seizures. CHIEF COMPLAINT: The patient was brought in by ambulance with history of recurrent seizures. From neurological point of view, I was called in to evaluate him for further management. HISTORY OF PRESENTING ILLNESS: Mr. Gaye Gao is a 46-year-old right-handed male, brought in to [facility] with unresponsive stage with a history of preceding seizures at home. The patient was given Ativan. The patient was unresponsive and he became responsive later. At present, he denies any complaints. He knows he is in the hospital. No headache at present. PAST MEDICAL HISTORY: History of seizure disorder. PERSONAL HISTORY: No history of smoking or alcohol use as per the patient. REVIEW OF SYSTEMS: A 12-point systems had been reviewed. MEDICATION: Dilantin at home, lorazepam, folic acid, multivitamin, thiamine. PHYSICAL EXAMINATION: VITAL SIGNS: Blood pressure 121/80, mean arterial pressure of 93, respiratory rate 16, temperature 98.3, pulse rate 87, regular. NECK: Supple. No carotid bruit. HEART: Sounds are regular. CHEST: Fair air entry. EXTREMITIES: No edema in legs. NEUROLOGICAL: Mental status examination: He is awake, alert and oriented to person, place and time. He knows he is in the hospital because of seizures. He could not quantify as well as qualify the seizure quality; however, he admits he has been having seizures for years and he had been on Dilantin for the same. Cranial nerve examination: Visual field intact. Pupils reactive to light. Extraocular movement normal. No nystagmus. No facial sensory deficit. No facial asymmetry. Hearing is normal. Tongue is midline. Good gag. On examination of the skull, had bruise over the frontal vertical region. Motor examination: Outstretched hand with eyes closed, no drift noted. Power is symmetric on either side. Deep tendon reflexes biceps, brachialis, triceps trace, both knees are absent, both ankles are absent. Plantars are downgoing. Sensory examination: Respond to pain symmetrically on both sides. Gait is deferred at this time. WORKUP: WBC 5.9, hemoglobin 12.3, hematocrit 36.3, platelet 174. Sodium 138, potassium 3.7, chloride 105, bicarbonate 28, BUN 14, GFR more than 60, calcium 7.9, total protein 5.2, albumin 3.2. Urine shows 1+ proteinuria. Urine tox screen shows alcohol less than 10. CT of the head: No acute pathology noted. However, the patient does show left frontal lobe encephalomalacia extending to the left lateral ventricle. Diffuse atrophy and microangiopathic changes noted. EKG, normal sinus rhythm. CONCLUSION: Mr. Gaye Gao had been presenting with recurrent seizure, which is probably secondary to subtherapeutic dose of his antiepileptic drugs. RECOMMENDATION: 1. He is on Keppra 750 mg twice a day. Let him continue with the same for now. 2. EEG. 3. MRI of the brain also recommended. We will keep the Keppra for now. If medically stable for next 24-hour period, the patient can be discharged and should have followup visit as an outpatient. Lucien Lundberg MD
[2017-05-24] MEDS: Multiple Vitamins Tab PO SCH (09:24)
[2017-05-24] MEDS: Pantoprazole 40 mg EC Tab PO SCH (09:24)
[2017-05-24] MEDS ORDERED: Gadodiamide 287 MG/ML VIAL (15ML) IV ONE (15:15)
[2017-05-24] MEDS: levETIRAcetam 1,000 MG in Sodium Chloride 0.9% 100 ML IVPB SCH (17:34)
[2017-05-25] MEDS: levETIRAcetam 1,000 MG in Sodium Chloride 0.9% 100 ML IVPB SCH ×3 (06:00→17:30)
--- NOTE | 2017-05-25 06:56 | CP.PCM.PN ---
<Sulma Mondragon - Last Filed: 05/25/17 15:23> Subjective - Date & Time of Evaluation Date of Evaluation: 05/25/17 Time of Evaluation: 06:55 - Subjective Subjective: Medicine Progress Note for Dr. Silveira Patient was seen and examined at bedside in no acute distress. Patient reports feeling okay today and has no complaints. Patient is oriented to person, place ( "NM)", and time, as well as knows who the president is. Patient denies having chest pain, abdominal pain, nausea, vomiting, fevers, dizziness, headaches, and leg pain. Objective - Vital Signs/Intake and Output Vital Signs (last 24 hours): Temp Pulse Resp BP Pulse Ox 98.2 F 69 20 110/65 95 05/24/17 23:35 05/25/17 01:00 05/24/17 23:35 05/24/17 23:35 05/24/17 23:35 Intake and Output: 05/24/17 05/25/17 18:59 06:59 Intake Total 360 250 Output Total 600 800 Balance -240 -550 - Medications Medications: Current Medications Folic Acid (Folic Acid) 1 mg PO DAILY [facility] Last Admin: 05/24/17 09:24 Dose: 1 mg Heparin Sodium (Porcine) (Heparin) 5,000 units SC Q12 [facility] Last Admin: 05/24/17 21:08 Dose: 5,000 units Levetiracetam 1,000 mg/ Sodium (Chloride) 110 mls @ 420 mls/hr IVPB Q12H [facility] Last Admin: 05/25/17 06:00 Dose: 420 mls/hr Lorazepam (Ativan) 1 mg IVP Q6H PRN PRN Reason: Seizure activity Last Admin: 05/22/17 10:49 Dose: 1 mg Lorazepam (Ativan) 1 mg PO Q8H [facility] PRN Reason: Taper Stop: 05/27/17 13:59 Last Admin: 05/25/17 05:59 Dose: 1 mg Multivitamins (Hexavitamin) 1 tab PO DAILY [facility] Last Admin: 05/24/17 09:24 Dose: 1 tab Pantoprazole Sodium (Protonix Ec Tab) 40 mg PO DAILY [facility] Last Admin: 05/24/17 09:24 Dose: 40 mg Thiamine HCl (Vitamin B1 Tab) 100 mg PO DAILY [facility] Last Admin: 05/24/17 09:24 Dose: 100 mg - Labs Labs: 05/23/17 06:26 05/23/17 06:23 - Additional Findings Additional findings: - Constitutional Appears: No Acute Distress - Head Exam Head Exam: ATRAUMATIC, NORMAL INSPECTION - Eye Exam Eye Exam: EOMI, Normal appearance - ENT Exam ENT Exam: Mucous Membranes Moist - Respiratory Exam Respiratory Exam: NORMAL BREATHING PATTERN. absent: Rales, Rhonchi, Wheezes, Respiratory Distress - Cardiovascular Exam Cardiovascular Exam: REGULAR RHYTHM, +S1, +S2 - GI/Abdominal Exam GI & Abdominal Exam: Soft, Normal Bowel Sounds. absent: Distended, Firm, Tenderness - Extremities Exam Extremities Exam: Normal Inspection - Neurological Exam Neurological Exam: Alert, Awake; absent: orientedx3 Additional comments: no asterixis noted - Psychiatric Exam Psychiatric exam: Flat Affect - Skin Skin Exam: Dry, Intact, Normal Color, Warm Assessment and Plan (1) Seizure Status: Acute (2) Alcohol intoxication Status: Acute (3) Change in mental status Status: Acute (4) Prophylactic measure Status: Acute - Assessment and Plan (Free Text) Plan: Assessment and Plan (1) Seizure Assessment & Plan: * Seizure disorder vs alcohol withdrawal * Head CT: No evidence of an acute intracranial hemorrhage, midline shift or mass effect is identified. Multifocal left mandibular and maxillary periodontal and periapical lucency with retained roots and multifocal dental carious lesions. There is comminuted fracture deformity of the nasal bones. 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 * EEG: f/u results * Medications: * Discontinue Ativan 1 mg IV PRN Seizure activity * Keppra 1000mg IV BID [increased from 750mg BID as per Dr. Lundberg on 05/24] * Patient reports he used to take Keppra and Phenytoin. He reports he does not know who prescribed them or specifically where he got the prescription from; however, he says he gets them from [facility]. Called [facility]'s pharmacy on 05/23/17, both inpatient and outpatient, who states they do not have any record of this patient on file. * As of 05/24, patient then reports he [facility] was called and reported they have 16 patients with the same name and , but were all different patients. There is no other information provided by patient records (SSN, telephone, address) to get more information from [facility]. Prescription bottle was found in patient's bag; information was faded , and only legible words were [facility]. Called pharmacy ([phone]) at 3:45pm, but pharmacy was closed (Hours 8am-3pm). * Phenytoin level: f/u results Status: Acute (2) Alcohol intoxication Assessment & Plan: * Psychiatry consulted, Dr. Mcgee, help appreciated * Continue Thiamine 100 mg PO daily * Continue Folic Acid 1 mg PO daily * Continue Multivitamins PO daily * Discontinue Ativan 2mg PO Q8h MOLLY and 1mg PO Q6 PRN-- no signs/symptoms of alcohol withdrawal. Status: Acute (3) Change in Mental Status Assessment & Plan: * Possibly due to progressing Wernicke-Korsakoff? 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 * TSH/free T4: within normal range * HIV: negative * Hepatitis panel: negative * RPR: f/u results * Vitamin B1: f/u results * EEG: f/u results (4) Prophylactic measure Assessment & Plan: * Protonix IV * Heparin 5000U SC Q12h * SCDs Status: Acute Disposition: EEG, RPR, Vitamin B1 pending. Discussed setting patient up with guardianship with Adult Protective Services with case management, Selene, who said proper documentation reporting patient is incompetent/unable to care for self is required for patient to get guardianship. Dr. Mcgee will assess the patient and provide proper documentation as needed. <Imer Silveira - Last Filed: 05/25/17 20:13> Objective - Vital Signs/Intake and Output Vital Signs (last 24 hours): Temp Pulse Resp BP Pulse Ox 97.9 F 73 18 95/60 L 96 05/25/17 16:00 05/25/17 16:00 05/25/17 16:00 05/25/17 16:00 05/25/17 16:00 Intake and Output: 05/25/17 05/26/17 18:59 06:59 Intake Total 240 Output Total 400 Balance -160 - Medications Medications: Current Medications Folic Acid (Folic Acid) 1 mg PO DAILY [facility] Last Admin: 05/25/17 09:52 Dose: 1 mg Heparin Sodium (Porcine) (Heparin) 5,000 units SC Q12 [facility] Last Admin: 05/25/17 09:53 Dose: 5,000 units Levetiracetam 1,000 mg/ Sodium (Chloride) 110 mls @ 420 mls/hr IVPB Q12H [facility] Last Admin: 05/25/17 17:30 Dose: 420 mls/hr Lorazepam (Ativan) 1 mg IVP Q6H PRN PRN Reason: Seizure activity Last Admin: 05/22/17 10:49 Dose: 1 mg Lorazepam (Ativan) 1 mg PO Q12H [facility] PRN Reason: Taper Stop: 05/27/17 13:59 Last Admin: 05/25/17 14:10 Dose: Not Given Multivitamins (Hexavitamin) 1 tab PO DAILY [facility] Last Admin: 05/25/17 09:52 Dose: 1 tab Pantoprazole Sodium (Protonix Ec Tab) 40 mg PO DAILY [facility] Last Admin: 05/25/17 09:53 Dose: 40 mg Thiamine HCl (Vitamin B1 Tab) 100 mg PO DAILY [facility] Last Admin: 05/25/17 09:53 Dose: 100 mg - Labs Labs: 05/25/17 07:39 05/25/17 07:39 Attending/Attestation - Attestation I have personally seen and examined this patient.: Yes I have fully participated in the care of the patient.: Yes I have reviewed all pertinent clinical information, including history, physical exam and plan: Yes Notes (Text): 05/25/17 20:02 Hospitalist Progress Note Patient was seen and examined at 4:45 PM 05/25/17 670 A 46 year old male who presented to the ER via EMS on 05/21/17 for the second time after he experienced Seizure at home. He was found to be unresponsive in the ER and had two witnessed seizures while in the ER. He had presented to the ER earlier in the day on 05/21/17 for alcohol intoxication but was found to be neurologically intact after observation and was discharged to home. His exam on 05/22/17 which was assisted by ICU Nurse Tia who speaks Austrian but patient also understands and responds in Danish. Patient stated to me had no other medical problems other than Seizures. He stated that he takes Keppra and Dilantin which are provided to him by [facility] but that he is not followed by Neurologist or a PMD. He could not provide any dosages. He stated that he has not had any surgeries. He lives alone and has a sister with whom he is not in contact with and he can not provide her contact information as he stated that he does not remember it. He is not and without any children. 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 He could not provide details of his parents medical history. He stated that he was not sure about his CODE STATUS therefore he was made full code. Upon ROS: NO chest pain NO SOB NO cough NO abdominal pain NO n/v/d/c NO burning/pain with urination NO edema NO headache Exam: General: Patient was able to provide day, date, month, and year and knew that the president was John. He knows he is in [place] but could not remember the hospital name (which was again provided to him). He still can not provide his address in [facility] or contact information for his Sister. He is NAD. HEENT: NCA (dry eschar on top of head), EOMI, PERRLA, NO cervical lymphadenopathy, NO pharyngeal erythema/exudate, NO thyromegaly, NO lacerations on tongue were noted, NO NYSTAGMUS, NO EYELIP Drooping Cardio: NS1 and NS2, NO M/R/G Resp: CTA B/L, NO R/R/W GI: BSx4, Soft, NT, ND, NO HSM, NO guarding/rebound tenderness Ext: NO edema, Capillary Refill is 2 seconds, Pulses are strong and equal Neuro: CN II through XII are grossly intact, 5/5 muscle strength against my resistance with flexion and extension of bilateral UE and LE, 2/4 DTR bilateral UE and LE, NO loss of sensation in dermatomal distruction of bilateral UE and LE (as per patient but this may not be reliable) Assessment and Plan: 1). Seizure CT head: No evidence of an acute intracranial hemorrhage, midline shift or mass effect is identified. Multifocal left mandibular and maxillary periodontal and periapical lucency with retained roots and multifocal dental carious lesions. There is comminuted fracture deformity of the nasal bones. MRI Brain with and without contrast shows no acute intracranial abnormality, bilateral inferior frontal and left inferior frontal lobe cystic encephalomalacia, moderate global parenchymal volume loss advanced for the patient's age F/U EEG Keppra increased to 1,000 mg IV Q12H Ativan 1 mg IV Q6H PRN Seizure Neurology Dr. Lundberg Status: Acute 2). Alcohol Withdrawl Ativan Taper was discontinued on Day #3 05/24/[address] Mcgee Thiamine 100 mg PO 1x/day Folic Acid 1 mg PO 1x/day MVI PO 1x/day Status: Acute 3). Change Mental Status vs Baseline Status Increased confusion/memory issues as noted in General portion of exm Secondary to Ativan Taper? Secondary to possible Wernicke Korsakoff? F/U EEG MRI Brain with and without contrast as mentioned in Assessment and Plan #1 TSH, T4, Vitamin B12, Folic Acid, RPR, HIV, Hepatitis Panel were all either WNL or Negative F/U Vitamin B1 Neurology Dr. Lundberg 4). Prophylaxis Protonix 40 mg PO 1x/day Heparin 5,000 Units SC Q12H Regular Diet F/U PT/OT evaluation Multiple attempts made to call [facility] [phone] on and 05/25/17 (a bottle of unspecified drug was found on patient's person and all information was faded except what could be made out was that the medication was filled at [facility]) but message stated that the Pharmacy was closed. Will attempt 05/26/17 to find EMS record to see if there is any identifying information. Molecular Biology Scientist Melanie was notified that Medicine Team did not feel that this patient does not have the ability to make decisions on his behalf and considering the above, is not a safe discharge. Request has been made to Molecular Biology Scientist to contact Adult Protective Services of [facility] to start the process of Guardianship after Psychiatry assessment as to whether this patient has the ability to make his own decisions. Imer Silveira D.O.
[2017-05-25 07:53] LABS: BASO % 0.6 % (0.0-2.0); EOS # 0.2 K/uL (0.0-0.7); EOS % 3.5 % (0.0-4.0); LYMPH # 1.7 K/uL (1.0-4.3); LYMPH % 32.3 % (20.0-40.0); MEAN CELL VOLUME 90.1 fL (80.0-94.0); MEAN CORPUSCULAR HEMOGLOBIN 29.7 pg (27.0-31.0); MEAN PLATELET VOLUME 10.4 fL (7.2-11.7); MONO # 0.4 K/uL (0.0-0.8); MONO % 7.7 % (0.0-10.0); NEUT % 55.9 % (50.0-75.0); RBC 4.86 Mil/uL (4.40-5.90); RED CELL DISTRIBUTION WIDTH 14.1 % (11.5-14.5); WHITE BLOOD COUNT 5.4 K/uL (4.8-10.8)
[2017-05-25 07:58] LABS: HEMOGLOBIN 14.5 g/dL (12.0-18.0)
[2017-05-25 08:38] LABS: ALB/GLOB RATIO 1.1 (1.0-2.1); ALT/SGPT 45 U/L (21-72); AST/SGOT 20 U/L (17-59); BLOOD UREA NITROGEN 17 mg/dL (9-20); GFR AFRICAN-AMERICAN > 60; GFR NON-AFRICAN AMERICAN > 60
[2017-05-25 08:39] LABS: HEPATITIS B SURFACE AG NEGATIVE (NEGATIVE)
[2017-05-25 08:46] LABS: HEPATITIS A IGM NEGATIVE (NEGATIVE); HEPATITIS B CORE AB Negative (NEGATIVE)
[2017-05-25 08:56] LABS: HEPATITIS C ANTIBODY Negative (NEGATIVE)
--- NOTE | 2017-05-25 09:00 | MRI ---
PROCEDURE: MRI BRAIN WITH AND WITHOUT CONTRAST HISTORY: Change in mental status. CT Head done 05/21 COMPARISON: Noncontrast head CT from 05/22/2017 TECHNIQUE: Multiplanar, multisequence MR images of the brain were obtained with and without intravenous contrast enhancement. Please note this examination is of suboptimal diagnostic quality due to patient motion. FINDINGS: HEMORRHAGE: None DWI: No evidence of an acute or early subacute infarction. BRAIN PARENCHYMA: There is cystic encephalomalacia and gliosis in the left frontal lobe with volume loss and ex vacuo dilatation of the left lateral ventricle. There is also cystic encephalomalacia in bilateral inferior frontal lobes. There is no mass, mass effect or abnormal extra-axial fluid collection. ENHANCEMENT: No abnormal intracranial enhancement. VENTRICLES: There is moderate global parenchymal volume loss and proportionate enlargement of the ventricles and cortical sulci, advanced for the patient's age. . CRANIUM: Un there is normal bone marrow signal pattern. ORBITS: Grossly unremarkable. PARANASAL SINUSES/MASTOIDS: There is mild polypoid mucosal thickening in the left maxillary sinus and a small left mastoid effusion VASCULAR SYSTEM: Skull base flow voids intact. 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 IMPRESSION: No acute intracranial abnormality. Bilateral inferior frontal and left anterior frontal lobe cystic encephalomalacia. Moderate global parenchymal volume loss, advanced for the patient's age.
[2017-05-25 09:42] LABS: FOLATE 11.7 ng/mL
[2017-05-25] MEDS: Multiple Vitamins Tab PO SCH (09:52)
[2017-05-25] MEDS: Pantoprazole 40 mg EC Tab PO SCH (09:53)
--- NOTE | 2017-05-26 06:37 | CP.PCM.PN ---
<Darrell Delgado - Last Filed: 05/26/17 11:59> Subjective - Date & Time of Evaluation Date of Evaluation: 05/26/17 Time of Evaluation: 07:00 - Subjective Subjective: Medicine Note- Dr. Silveira's service Patient was seen and examined at bedside. Patient appeared comfortable, in no acute distress. Patient reports no acute complaints at this time. Patient is oriented to time, place and self on questioning, however he is noted to be looking at the white board across his bed for information. No events overnight, per nursing. Objective - Vital Signs/Intake and Output Vital Signs (last 24 hours): Temp Pulse Resp BP Pulse Ox 98.4 F 77 20 106/68 96 05/25/17 23:22 05/25/17 23:22 05/25/17 23:22 05/25/17 23:22 05/25/17 23:22 Intake and Output: 05/25/17 05/26/17 18:59 06:59 Intake Total 240 Output Total 400 400 Balance -160 -400 - Medications Medications: Current Medications Folic Acid (Folic Acid) 1 mg PO DAILY [facility] Last Admin: 05/25/17 09:52 Dose: 1 mg Heparin Sodium (Porcine) (Heparin) 5,000 units SC Q12 MOLLY Last Admin: 05/25/17 22:15 Dose: 5,000 units Levetiracetam (Keppra) 1,000 mg PO Q12H MOLLY Lorazepam (Ativan) 1 mg PO Q12H MOLLY PRN Reason: Taper Stop: 05/27/17 13:59 Last Admin: 05/25/17 14:10 Dose: Not Given Lorazepam (Ativan) 1 mg PO Q6H PRN PRN Reason: Seizure activity Multivitamins (Hexavitamin) 1 tab PO DAILY [facility] Last Admin: 05/25/17 09:52 Dose: 1 tab Pantoprazole Sodium (Protonix Ec Tab) 40 mg PO DAILY [facility] Last Admin: 05/25/17 09:53 Dose: 40 mg Thiamine HCl (Vitamin B1 Tab) 100 mg PO DAILY [facility] Last Admin: 05/25/17 09:53 Dose: 100 mg - Labs Labs: 05/25/17 07:39 05/25/17 07:39 - Constitutional Appears: Non-toxic, No Acute Distress - Head Exam Head Exam: ATRAUMATIC, NORMAL INSPECTION, NORMOCEPHALIC - Eye Exam Pupil Exam: NORMAL ACCOMODATION, PERRL - ENT Exam ENT Exam: Mucous Membranes Moist - Neck Exam Neck Exam: Normal Inspection - Respiratory Exam Respiratory Exam: Clear to Ausculation Bilateral, NORMAL BREATHING PATTERN. absent: Prolonged Expiratory Phase, Rales, Rhonchi, Wheezes - Cardiovascular Exam Cardiovascular Exam: REGULAR RHYTHM, +S1, +S2 - GI/Abdominal Exam GI & Abdominal Exam: Soft, Normal Bowel Sounds. absent: Tenderness, Diminished Bowel Sounds, Hernia, Hypoactive Bowel Sounds - Extremities Exam Extremities Exam: Normal Capillary Refill, Normal Inspection - Neurological Exam Neurological Exam: Alert, Awake. absent: Oriented x3 - Psychiatric Exam Psychiatric exam: Normal Affect, Normal Mood - Skin Skin Exam: Dry, Intact, Normal Color, Warm Assessment and Plan - Assessment and Plan (Free Text) Assessment: (1) Seizure Assessment & Plan: * Seizure disorder vs alcohol withdrawal * Head CT: No evidence of an acute intracranial hemorrhage, midline shift or mass effect is identified. Multifocal left mandibular and maxillary periodontal and periapical lucency with retained roots and multifocal dental carious lesions. There is comminuted fracture deformity of the nasal bones. 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 * EEG: f/u results * Medications: * Discontinue Ativan 1 mg IV PRN Seizure activity * Keppra 1000mg IV BID [increased from 750mg BID as per Dr. Lundberg on 05/24] * Patient reports he used to take Keppra and Phenytoin. He reports he does not know who prescribed them or specifically where he got the prescription from; however, he says he gets them from [facility]. Called [facility] pharmacy on 05/23/17, both inpatient and outpatient, who states they do not have any record of this patient on file. * As of 05/24, patient then reports he filled his [facility] at [facility] was called and reported they have 16 patients with the same name and , but were all different patients. There is no other information provided by patient records (SSN, telephone, address) to get more information from [facility]. Prescription bottle was found in patient's bag; information was faded , and only legible words were [facility]. Called pharmacy ([phone]) at 3:45pm, but pharmacy was closed (Hours 8am-3pm). * Phenytoin level: f/u results Status: Acute (2) Alcohol intoxication Assessment & Plan: * Psychiatry consulted, Dr. Mcgee, help appreciated * Continue Thiamine 100 mg PO daily * Continue Folic Acid 1 mg PO daily * Continue Multivitamins PO daily * Discontinue Ativan 2mg PO Q8h MOLLY and 1mg PO Q6 PRN-- no signs/symptoms of alcohol withdrawal. 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 * TSH/free T4: within normal range * HIV: negative * Hepatitis panel: negative * RPR: nonreactive * Vitamin B12: 402 * EEG: f/u results (4) Prophylactic measure Assessment & Plan: * Protonix IV * Heparin 5000U SC Q12h * SCDs Status: Acute Disposition: EEG pending Discussed setting patient up with guardianship with Adult Protective Services with case management, Selene, who said proper documentation reporting patient is incompetent/unable to care for self is required for patient to get guardianship. Dr. Mcgee will assess the patient and provide proper documentation as needed. <Imer Silveira - Last Filed: 05/26/17 20:08> Objective - Vital Signs/Intake and Output Vital Signs (last 24 hours): Temp Pulse Resp BP Pulse Ox 97.9 F 66 20 104/68 96 05/26/17 15:23 05/26/17 15:23 05/26/17 15:23 05/26/17 15:23 05/26/17 15:23 - Medications Medications: Current Medications Folic Acid (Folic Acid) 1 mg PO DAILY [facility] Last Admin: 05/26/17 09:22 Dose: 1 mg Heparin Sodium (Porcine) (Heparin) 5,000 units SC Q12 [facility] Last Admin: 05/26/17 09:22 Dose: 5,000 units Levetiracetam (Keppra) 1,000 mg PO Q12H [facility] Last Admin: 05/26/17 09:22 Dose: 1,000 mg Lorazepam (Ativan) 1 mg PO Q6H PRN PRN Reason: Seizure activity Multivitamins (Hexavitamin) 1 tab PO DAILY [facility] Last Admin: 05/26/17 09:22 Dose: 1 tab Pantoprazole Sodium (Protonix Ec Tab) 40 mg PO DAILY [facility] Last Admin: 05/26/17 09:22 Dose: 40 mg Thiamine HCl (Vitamin B1 Tab) 100 mg PO DAILY [facility] Last Admin: 05/26/17 09:24 Dose: 100 mg - Labs Labs: 05/26/17 06:29 05/26/17 06:29 Attending/Attestation - Attestation I have personally seen and examined this patient.: Yes I have fully participated in the care of the patient.: Yes I have reviewed all pertinent clinical information, including history, physical exam and plan: Yes Notes (Text): 05/26/17 20:03 Hospitalist Progress Note Patient was seen and examined at 8:45 AM 05/26/17 670 A 46 year old male who presented to the ER via EMS on 05/21/17 for the second time after he experienced Seizure at home. He was found to be unresponsive in the ER and had two witnessed seizures while in the ER. He had presented to the ER earlier in the day on 05/21/17 for alcohol intoxication but was found to be neurologically intact after observation and was discharged to home. His exam on 05/22/17 which was assisted by ICU Nurse Tia who speaks Lao but patient also understands and responds in Luxembourgish. Patient stated to me had no other medical problems other than Seizures. He stated that he takes Keppra and Dilantin which are provided to him by [facility] but that he is not followed by Neurologist or a PMD. He could not provide any dosages. He stated that he has not had any surgeries. He lives alone and has a sister with whom he is not in contact with and he can not provide her contact information as he stated that he does not remember it. He is not and without any children. He works in an [employer] shop. He drinks beer daily but states "not much" when asked how much. He could not provide details of his parents medical history. He stated that he was not sure about his CODE STATUS therefore he was made full code. Upon ROS: NO chest pain NO SOB NO cough NO abdominal pain NO n/v/d/c NO burning/pain with urination NO edema NO headache Exam: General: Patient was able to provide day, date, month, and year and knew that the president was John. He knows he is in [place] but could not remember the hospital name (which was again provided to him). He still can not provide his address in [facility] or contact information for his Sister. He stated today that he was homeless. HEENT: NCA (dry eschar on top of head), EOMI, PERRLA, NO cervical lymphadenopathy, NO pharyngeal erythema/exudate, NO thyromegaly, NO lacerations on tongue were noted, NO NYSTAGMUS, NO EYELIP Drooping Cardio: NS1 and NS2, NO M/R/G Resp: CTA B/L, NO R/R/W GI: BSx4, Soft, NT, ND, NO HSM, NO guarding/rebound tenderness Ext: NO edema, Capillary Refill is 2 seconds, Pulses are strong and equal Neuro: CN II through XII are grossly intact, 5/5 muscle strength against my resistance with flexion and extension of bilateral UE and LE, 2/4 DTR bilateral UE and LE, NO loss of sensation in dermatomal distruction of bilateral UE and LE (as per patient but this may not be reliable) Assessment and Plan: 1). Seizure CT head: No evidence of an acute intracranial hemorrhage, midline shift or mass effect is identified. Multifocal left mandibular and maxillary periodontal and periapical lucency with retained roots and multifocal dental carious lesions. There is comminuted fracture deformity of the nasal bones. MRI Brain with and without contrast shows no acute intracranial abnormality, bilateral inferior frontal and left inferior frontal lobe cystic encephalomalacia, moderate global parenchymal volume loss advanced for the patient's age F/U EEG Keppra increased to 1,000 mg IV Q12H Ativan 1 mg IV Q6H PRN Seizure Neurology Dr. Lundberg Status: Acute 2). Alcohol Withdrawl Ativan Taper was discontinued on Day #3 05/24/[address] Everardo Thiamine 100 mg PO 1x/day Folic Acid 1 mg PO 1x/day MVI PO 1x/day Status: Acute 3). Change Mental Status vs Baseline Status Increased confusion/memory issues as noted in General portion of exm Secondary to Ativan Taper? Secondary to possible Wernicke Korsakoff? F/U EEG MRI Brain with and without contrast as mentioned in Assessment and Plan #1 TSH, T4, Vitamin B12, Folic Acid, RPR, HIV, Hepatitis Panel were all either WNL or Negative F/U Vitamin B1 Neurology Dr. Lundberg 4). Prophylaxis Protonix 40 mg PO 1x/day Heparin 5,000 Units SC Q12H Regular Diet F/U PT/OT evaluation 05/24/17 and 05/25/17: Multiple attempts made to call [facility] [phone] on 05/24/17 and 05/25/17 (a bottle of unspecified drug was found on patient's person and all information was faded except what could be made out was that the medication was filled at [facility]) but message stated that the Pharmacy was closed. 05/25/17: [employer] Melanie was notified that Medicine Team did not feel that this patient has the ability to make decisions on his behalf and considering the above, is not a safe discharge. Request has been made to [employer] to contact Adult Protective Services of [facility] to start the process of Guardianship after Psychiatry assessment as to whether this patient has the ability to make his own decisions. 05/26/17: Information in physical chart indicated that the patient was evaluated at [facility] on 05/20/17 for Alcohol Intoxication and discharged. This paperwork indicated that the patient's address is [address] [place] [address] [place] [address] but also indicated that the patient was homeless. When I asked patient whether he recognized this address he stated "no" and that he was homeless. Imer Silveira D.O.
[2017-05-26 06:38] LABS: BASO # 0.1 K/uL (0.0-0.2); EOS # 0.2 K/uL (0.0-0.7); HEMOGLOBIN 14.2 g/dL (12.0-18.0); LYMPH # 2.1 K/uL (1.0-4.3); LYMPH % 41.1 % (20.0-40.0); MEAN CELL VOLUME 89.6 fL (80.0-94.0); MEAN CORPUSCULAR HEMOGLOBIN 30.5 pg (27.0-31.0); MEAN CORPUSCULAR HGB CONC 34.1 g/dL (33.0-37.0); MEAN PLATELET VOLUME 9.8 fL (7.2-11.7); MONO # 0.4 K/uL (0.0-0.8); MONO % 7.6 % (0.0-10.0); NEUT # 2.4 K/uL (1.8-7.0); NEUT % 46.3 % (50.0-75.0); RBC 4.64 Mil/uL (4.40-5.90); RED CELL DISTRIBUTION WIDTH 13.8 % (11.5-14.5); WHITE BLOOD COUNT 5.1 K/uL (4.8-10.8)
[2017-05-26 06:52] LABS: ALB/GLOB RATIO 1.1 (1.0-2.1); ALBUMIN 3.9 g/dL (3.5-5.0); ALT/SGPT 43 U/L (21-72); AST/SGOT 19 U/L (17-59); BLOOD UREA NITROGEN 17 mg/dL (9-20); CALCIUM 8.8 mg/dl (8.6-10.4); GFR AFRICAN-AMERICAN > 60; GFR NON-AFRICAN AMERICAN > 60
[2017-05-26] MEDS: Multiple Vitamins Tab PO SCH (09:22)
[2017-05-26] MEDS: Pantoprazole 40 mg EC Tab PO SCH (09:22)
--- NOTE | 2017-05-27 06:59 | CP.PCM.PN ---
<Darrell Delgado - Last Filed: 05/27/17 09:52> Subjective - Date & Time of Evaluation Date of Evaluation: 05/27/17 Time of Evaluation: 07:50 - Subjective Subjective: Medicine Note- Hospitalist Service Patient was seen and examined at bedside. Patient reports no acute complaints at this time. He is awake and alert, oriented to person time and place. He answers questions appropriately, but very slowly. No events overnight, per nursing. Objective - Vital Signs/Intake and Output Vital Signs (last 24 hours): Temp Pulse Resp BP Pulse Ox 97.9 F 64 20 110/69 96 05/26/17 23:30 05/26/17 23:30 05/26/17 23:30 05/26/17 23:30 05/26/17 23:30 Intake and Output: 05/26/17 05/27/17 18:59 06:59 Intake Total 240 Output Total 250 Balance -10 - Medications Medications: Current Medications Folic Acid (Folic Acid) 1 mg PO DAILY [facility] Last Admin: 05/26/17 09:22 Dose: 1 mg Heparin Sodium (Porcine) (Heparin) 5,000 units SC Q12 [facility] Last Admin: 05/26/17 21:16 Dose: 5,000 units Levetiracetam (Keppra) 1,000 mg PO Q12H [facility] Last Admin: 05/26/17 21:17 Dose: 1,000 mg Lorazepam (Ativan) 1 mg PO Q6H PRN PRN Reason: Seizure activity Multivitamins (Hexavitamin) 1 tab PO DAILY [facility] Last Admin: 05/26/17 09:22 Dose: 1 tab Pantoprazole Sodium (Protonix Ec Tab) 40 mg PO DAILY [facility] Last Admin: 05/26/17 09:22 Dose: 40 mg Thiamine HCl (Vitamin B1 Tab) 100 mg PO DAILY [facility] Last Admin: 05/26/17 09:24 Dose: 100 mg - Labs Labs: 05/26/17 06:29 05/26/17 06:29 - Constitutional Appears: Non-toxic, No Acute Distress, Confused, Chronically Ill - Head Exam Head Exam: ATRAUMATIC, NORMAL INSPECTION, NORMOCEPHALIC - Eye Exam Pupil Exam: NORMAL ACCOMODATION, PERRL - ENT Exam ENT Exam: Mucous Membranes Moist - Respiratory Exam Respiratory Exam: Clear to Ausculation Bilateral, NORMAL BREATHING PATTERN. absent: Prolonged Expiratory Phase, Rales, Rhonchi, Wheezes - Cardiovascular Exam Cardiovascular Exam: REGULAR RHYTHM, +S1, +S2 - GI/Abdominal Exam GI & Abdominal Exam: Soft, Normal Bowel Sounds. absent: Tenderness, Diminished Bowel Sounds, Hernia, Hypoactive Bowel Sounds - Extremities Exam Extremities Exam: Normal Capillary Refill - Neurological Exam Neurological Exam: Alert, Awake, Oriented x3 - Psychiatric Exam Psychiatric exam: Normal Affect, Normal Mood - Skin Skin Exam: Dry, Intact, Normal Color, Warm Assessment and Plan - Assessment and Plan (Free Text) Assessment: (1) Seizure Assessment & Plan: * Seizure disorder vs alcohol withdrawal * Head CT: No evidence of an acute intracranial hemorrhage, midline shift or mass effect is identified. Multifocal left mandibular and maxillary periodontal and periapical lucency with retained roots and multifocal dental carious lesions. There is comminuted fracture deformity of the nasal bones. 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 * EEG: f/u results * Medications: * Discontinue Ativan 1 mg IV PRN Seizure activity * Keppra 1000mg IV BID [increased from 750mg BID as per Dr. Lundberg on 05/24] * Patient reports he used to take Keppra and Phenytoin. He reports he does not know who prescribed them or specifically where he got the prescription from; however, he says he gets them from [facility]. Called [facility] pharmacy on 05/23/17, both inpatient and outpatient, who states they do not have any record of this patient on file. * As of 05/24, patient then reports [facility] and reported they have 16 patients with the same name and , but were all different patients. There is no other information provided by patient records (SSN, telephone, address) to get more information from [facility]. Prescription bottle was found in patient's bag; information was faded , and only legible words were [facility]. Called pharmacy ([phone]) at 3:45pm, but pharmacy was closed (Hours 8am-3pm). * Phenytoin level: f/u results Status: Acute (2) Alcohol intoxication Assessment & Plan: * Psychiatry consulted, Dr. Mcgee, help appreciated * Continue Thiamine 100 mg PO daily * Continue Folic Acid 1 mg PO daily * Continue Multivitamins PO daily * Discontinue Ativan 2mg PO Q8h [facility] and 1mg PO Q6 PRN-- no signs/symptoms of alcohol withdrawal. 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 * TSH/free T4: within normal range * HIV: negative * Hepatitis panel: negative * RPR: nonreactive * Vitamin B12: 402 * EEG: f/u results (4) Prophylactic measure Assessment & Plan: * Protonix IV * Heparin 5000U SC Q12h * SCDs Status: Acute Disposition: EEG pending Discussed setting patient up with guardianship with Adult Protective Services with case management, Selene, who said proper documentation reporting patient is incompetent/unable to care for self is required for patient to get guardianship. Dr. Mcgee will assess the patient and provide proper documentation as needed. <Imer Silveira - Last Filed: 05/27/17 17:53> Objective - Vital Signs/Intake and Output Vital Signs (last 24 hours): Temp Pulse Resp BP Pulse Ox 98.7 F 63 20 109/69 96 05/27/17 09:11 05/27/17 16:00 05/27/17 09:11 05/27/17 10:19 05/27/17 09:11 Intake and Output: 05/27/17 05/27/17 06:59 18:59 Intake Total 240 Output Total 250 Balance -10 - Medications Medications: Current Medications Folic Acid (Folic Acid) 1 mg PO DAILY [facility] Last Admin: 05/27/17 10:11 Dose: 1 mg Levetiracetam (Keppra) 1,000 mg PO Q12H [facility] Last Admin: 05/27/17 10:11 Dose: 1,000 mg Lorazepam (Ativan) 1 mg PO Q6H PRN PRN Reason: Seizure activity Multivitamins (Hexavitamin) 1 tab PO DAILY [facility] Last Admin: 05/27/17 10:11 Dose: 1 tab Pantoprazole Sodium (Protonix Ec Tab) 40 mg PO DAILY [facility] Last Admin: 05/27/17 10:11 Dose: 40 mg Thiamine HCl (Vitamin B1 Tab) 100 mg PO DAILY [facility] Last Admin: 05/27/17 10:14 Dose: 100 mg - Labs Labs: 05/26/17 06:29 05/26/17 06:29 Attending/Attestation - Attestation I have personally seen and examined this patient.: Yes I have fully participated in the care of the patient.: Yes I have reviewed all pertinent clinical information, including history, physical exam and plan: Yes Notes (Text): 05/27/17 17:47 Hospitalist Progress Note Patient was seen and examined at 1:00 PM 05/27/17 670 A 46 year old male who presented to the ER via EMS on 05/21/17 for the second time after he experienced Seizure at home. He was found to be unresponsive in the ER and had two witnessed seizures while in the ER. He had presented to the ER earlier in the day on 05/21/17 for alcohol intoxication but was found to be neurologically intact after observation and was discharged to home. His exam on 05/22/17 which was assisted by ICU Nurse Tia who speaks Swedish but patient also understands and responds in Palestinian. Patient stated to me had no other medical problems other than Seizures. He stated that he takes Keppra and Dilantin which are provided to him by [facility] but that he is not followed by Neurologist or a PMD. He could not provide any dosages. He stated that he has not had any surgeries. He lives alone and has a sister with whom he is not in contact with and he can not provide her contact information as he stated that he does not remember it. He is not and without any children. 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 He could not provide details of his parents medical history. He stated that he was not sure about his CODE STATUS therefore he was made full code. Upon ROS: NO chest pain NO SOB NO cough NO abdominal pain NO n/v/d/c NO burning/pain with urination NO edema NO headache Exam: General: Today patient was able to provide month and year but NOT the day and date and knew that the president was John. He did NOT know he is in [place] and could not remember the hospital name ([facility] He was again provided with this information and asked to remember them for tomorrow. He still can not provide his address of intermediate that [facility] or contact information for his Sister. He again stated today that he was homeless. HEENT: NCA (dry eschar on top of head), EOMI, PERRLA, NO cervical lymphadenopathy, NO pharyngeal erythema/exudate, NO thyromegaly, NO lacerations on tongue were noted, NO NYSTAGMUS, NO EYELIP Drooping Cardio: NS1 and NS2, NO M/R/G Resp: CTA B/L, NO R/R/W GI: BSx4, Soft, NT, ND, NO HSM, NO guarding/rebound tenderness Ext: NO edema, Capillary Refill is 2 seconds, Pulses are strong and equal Neuro: CN II through XII are grossly intact, 5/5 muscle strength against my resistance with flexion and extension of bilateral UE and LE, 2/4 DTR bilateral UE and LE, NO loss of sensation in dermatomal distruction of bilateral UE and LE (as per patient but this may not be reliable) Assessment and Plan: 1). Seizure CT head: No evidence of an acute intracranial hemorrhage, midline shift or mass effect is identified. Multifocal left mandibular and maxillary periodontal and periapical lucency with retained roots and multifocal dental carious lesions. There is comminuted fracture deformity of the nasal bones. MRI Brain with and without contrast shows no acute intracranial abnormality, bilateral inferior frontal and left inferior frontal lobe cystic encephalomalacia, moderate global parenchymal volume loss advanced for the patient's age F/U EEG: I was informed in the ICU that it was done however, there is NO report. Please reorder for Sunday05/28/17. Keppra increased to 1,000 mg IV Q12H Ativan 1 mg IV Q6H PRN Seizure Neurology Dr. Lundberg Status: Acute 2). Alcohol Withdrawl Ativan Taper was discontinued on Day #3 05/24/17 Continues to have NO tremors or [facility] Psychiatry Dr. Mcgee Thiamine 100 mg PO 1x/day Folic Acid 1 mg PO 1x/day MVI PO 1x/day Status: Acute 3). Change Mental Status vs Baseline Status Increased confusion/memory issues as noted in General portion of exm Secondary to Ativan Taper? Secondary to possible Wernicke Korsakoff? F/U EEG: I was informed in the ICU that it was done however, there is NO report. Please reorder for Sunday05/28/17. MRI Brain with and without contrast as mentioned in Assessment and Plan #1 TSH, T4, Vitamin B12, Folic Acid, RPR, HIV, Hepatitis Panel were all either WNL or Negative F/U Vitamin B1 Neurology Dr. Lundberg 4). Prophylaxis Protonix 40 mg PO 1x/day Heparin 5,000 Units SC Q12H Regular Diet F/U PT/OT evaluation 05/24/17 and 05/25/17: Multiple attempts made to call [facility] [phone] on 05/24/17 and 05/25/17 (a bottle of unspecified drug was found on patient's person and all information was faded except what could be made out was that the medication was filled at [facility]) but message stated that the Pharmacy was closed. 05/25/17: Entertainment Production Professional Melanie was notified that Medicine Team did not feel that this patient has the ability to make decisions on his behalf and considering the above, is not a safe discharge. Request has been made to Entertainment Production Professional to contact Adult Protective Services of [facility] to start the process of Guardianship after Psychiatry assessment as to whether this patient has the ability to make his own decisions. 05/26/17: Information in physical chart indicated that the patient was evaluated at [facility] on 05/20/17 for Alcohol Intoxication and discharged. This paperwork indicated that the patient's address is [address] [place] [address] but also indicated that the patient was homeless. When I asked patient whether he recognized this address he stated "no" and that he was homeless. 05/27/17: Medicine Team please speak with Entertainment Production Professional Melanie about the address [address] [place] [address] as to whether this is a intermediate or residence. Please speak with medical records to see if we can obtain copy of EMS documentation to check to see where patient was picked up from prior to being river[facility] to [facility]. Imer Silveira D.O.
[2017-05-27] MEDS: Pantoprazole 40 mg EC Tab PO SCH (10:11)
[2017-05-27] MEDS: Multiple Vitamins Tab PO SCH (10:11)
--- NOTE | 2017-05-28 09:18 | CP.PCM.PN ---
<Matilda Rebolledo - Last Filed: 05/28/17 14:54> Subjective - Date & Time of Evaluation Date of Evaluation: 05/28/17 Time of Evaluation: 09:16 - Subjective Subjective: Medicine Progress Note: Hospitalist Service Patient seen and examined at bedside. Per nursing no acute events overnight. Patient is doing well, offers no complaints at this time. Patient's speech is slow, he is alert and orientated to person, place and time. Denies headaches, dizziness, cp, palpitations, sob, urinary symptoms, changes in bowel habits. Objective - Vital Signs/Intake and Output Vital Signs (last 24 hours): Temp Pulse Resp BP Pulse Ox 97.7 F 63 20 111/70 96 05/28/17 08:00 05/28/17 08:00 05/28/17 08:00 05/28/17 08:00 05/28/17 08:00 Intake and Output: 05/28/17 05/28/17 06:59 18:59 Intake Total 0 Output Total 300 Balance -300 - Medications Medications: Current Medications Folic Acid (Folic Acid) 1 mg PO DAILY [facility] Last Admin: 05/27/17 10:11 Dose: 1 mg Levetiracetam (Keppra) 1,000 mg PO Q12H [facility] Last Admin: 05/27/17 21:08 Dose: 1,000 mg Lorazepam (Ativan) 1 mg PO Q6H PRN PRN Reason: Seizure activity Multivitamins (Hexavitamin) 1 tab PO DAILY [facility] Last Admin: 05/27/17 10:11 Dose: 1 tab Pantoprazole Sodium (Protonix Ec Tab) 40 mg PO DAILY [facility] Last Admin: 05/27/17 10:11 Dose: 40 mg Thiamine HCl (Vitamin B1 Tab) 100 mg PO DAILY [facility] Last Admin: 05/27/17 10:14 Dose: 100 mg - Labs Labs: 05/26/17 06:29 05/26/17 06:29 - Constitutional Appears: Well, No Acute Distress - Head Exam Head Exam: ATRAUMATIC, NORMAL INSPECTION - Eye Exam Eye Exam: EOMI - ENT Exam ENT Exam: Mucous Membranes Moist - Neck Exam Neck Exam: Full ROM - Respiratory Exam Respiratory Exam: Clear to Ausculation Bilateral, NORMAL BREATHING PATTERN. absent: Decreased Breath Sounds, Rales, Rhonchi, Wheezes - Cardiovascular Exam Cardiovascular Exam: REGULAR RHYTHM, +S1, +S2 - GI/Abdominal Exam GI & Abdominal Exam: Soft, Tenderness, Normal Bowel Sounds. absent: Guarding, Rigid - Extremities Exam Extremities Exam: Normal Inspection - Back Exam Back Exam: NORMAL INSPECTION - Neurological Exam Neurological Exam: Alert, Awake, Oriented x3. absent: Motor Sensory Deficit - Psychiatric Exam Psychiatric exam: Normal Affect, Normal Mood - Skin Skin Exam: Dry, Normal Color, Warm Assessment and Plan (1) Seizure Assessment & Plan: -Stable, afebrile -Continue to monitor on telemetry -Continue Keppra 1000mg PO Q12H [increased from 750mg BID as per Dr. Lundberg on ] -Ativan 1mg Q6H prn seizure activity -F/U phenytoin level -Physical Therapy, Occupational Therapy ordered -Seizure precautions, aspiration precautions -Neurology on consult; f/u recommendations Imaging: -Head CT: No evidence of an acute intracranial hemorrhage, midline shift or mass effect is identified. Multifocal left mandibular and maxillary periodontal and -periapical lucency with retained roots and multifocal dental carious lesions. There is comminuted fracture deformity of the nasal bones. -Chest xray PA/Lat: Metallic clips in the right lung base with what probably represents chronic scarring in the right mid to lower lung field. Slight volume loss right mid to lower lung field as well. No focal consolidation -Brain MRI: no acute intracranial abnormality; bilateral inferior front and left anterior frontal lobe cystic encephalomalacia; mod. global parenchymal volume loss -EEG: abnormal study, persistent slowing superimposed with multiple movement artifact, lead artifact as well as muscle artifact. 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 -Continue Thiamine, multivitamins and folic acid daily -Vitamin B1 level pending -Per psych: Patient does not have any capacity to make any medical decisions -Patient states that he is homeless, will need guardianship with APS -Will continue to follow up with case management Status: Acute (4) Prophylactic measure Assessment & Plan: -Pepcid 20mg PO Daily -Heparin 5000U SC Q8H Status: Acute <Juliet Echevarria V - Last Filed: 05/28/17 16:56> Objective - Vital Signs/Intake and Output Vital Signs (last 24 hours): Temp Pulse Resp BP Pulse Ox 98.1 F 66 20 106/66 97 05/28/17 15:20 05/28/17 15:20 05/28/17 15:20 05/28/17 15:20 05/28/17 15:20 Intake and Output: 05/28/17 05/28/17 06:59 18:59 Intake Total 0 Output Total 300 Balance -300 - Medications Medications: Current Medications Famotidine (Pepcid) 20 mg PO DAILY [facility] Last Admin: 05/28/17 10:25 Dose: Not Given Folic Acid (Folic Acid) 1 mg PO DAILY [facility] Last Admin: 05/28/17 09:40 Dose: 1 mg Heparin Sodium (Porcine) (Heparin) 5,000 units SC Q8H [facility] Last Admin: 05/28/17 11:06 Dose: 5,000 units Levetiracetam (Keppra) 1,000 mg PO Q12H [facility] Last Admin: 05/28/17 09:40 Dose: 1,000 mg Lorazepam (Ativan) 1 mg PO Q6H PRN PRN Reason: Seizure activity Multivitamins (Hexavitamin) 1 tab PO DAILY [facility] Last Admin: 05/28/17 09:40 Dose: 1 tab Thiamine HCl (Vitamin B1 Tab) 100 mg PO DAILY [facility] Last Admin: 05/28/17 09:40 Dose: 100 mg - Labs Labs: 05/28/17 11:40 05/28/17 11:40 Attending/Attestation - Attestation I have personally seen and examined this patient.: Yes I have fully participated in the care of the patient.: Yes I have reviewed all pertinent clinical information, including history, physical exam and plan: Yes Notes (Text): Patient seen, examined and case discussed with day-time resident. This is my first time seeing this patient. Patient was seen by my colleague. Admitted for witnessed seizure and recurrent seizure episodes in the ED on admission. Patient also noted alcohol abuse as well. Patient seen today no family at bedside. Patient has not any further episodes in regards to seizures. Per psych, patient does not have any capacity to make medical decisions, will need to follow-up with case management and social work in regards to discharge planning. As addendum to resident physical: CN 2-12 grossly intact, negative Babinski sign , strength upper and lower 5/5, speaks in Algerian Assessment/Plan (1) Seizure Assessment & Plan: * Neurology (Dr. Lundberg) on board-->help appreciated * Had recommend if stable for 24hour period for discharge and should have follow-up visit as outpatient * Stable, afebrile * Continue to monitor on telemetry * Continue Keppra 1000mg PO Q12H * Ativan 1mg Q6H prn seizure activity * F/U phenytoin level * EEG: abnormal study, persistent slowing superimposed with multiple movement artifact, lead artifact as well as muscle artifact. 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 global parenchymal volume loss * Head CT: No evidence of an acute intracranial hemorrhage, midline shift or mass effect is identified. Multifocal left mandibular and maxillary periodontal and -periapical lucency with retained roots and multifocal dental carious lesions. There is comminuted fracture deformity of the nasal bones. * Physical Therapy, Occupational Therapy ordered * Seizure precautions, aspiration precautions (2) Alcohol intoxication Assessment & Plan: * Ativan taper completed 05/24/17 * No current signs or symptoms of alcohol withdrawal * Continue Thiamine 100 mg PO daily * Continue Folic Acid 1 mg PO daily * Continue Multivitamins PO daily * 05/21 ER visit for alcohol abuse/sever intoxication Status: Suspected (3) Change in mental status Assessment & Plan: * Contributing: alcohol abuse, seizure, concern for Wernicke-Korsakoff? * Folic acid 1mg PO daily * MVI 1 tab PO daily * Thiamine 100mg PO daily * Completed Ativan taper completed 05/24/17 * Per latest Dr. 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 global parenchymal volume loss * Head CT: No evidence of an acute intracranial hemorrhage, midline shift or mass effect is identified. Multifocal left mandibular and maxillary periodontal and -periapical lucency with retained roots and multifocal dental carious lesions. There is comminuted fracture deformity of the nasal bones. * TSH: 1.21 * Vitamin B12: 407 * RPR: nonreactive * Hepatitis panel: negative * HIV: negative (4) Prophylactic measure Assessment & Plan: * Pepcid 20mg PO Daily * Heparin 5000U SC Q12H * F/u with social and case management regarding discharge planning Status: Acute Disposition: Per psych, patient does not have any capacity to make any medical decisions. Will need to follow-up with social and case management in regards to discharge planning.
[2017-05-28] MEDS: Multiple Vitamins Tab PO SCH (09:40)
[2017-05-28] MEDS: Pantoprazole 40 mg EC Tab PO SCH (09:40)
--- NOTE | 2017-05-28 10:37 | EEG ---
DATE: 05/24/2017 This is a 16-channel electroencephalogram of awake and confused adult. During the study, photic stimulation was performed, hyperventilation was not performed. The resting electroencephalogram consists of moderate voltage diffuse 5-7 Hz theta activities seen at parietal and occipital leads. These activities intermixed with persistent muscle and movement artifact, more pronounced in his left cortical leads. The photic stimulation did not evoke driving response noted at 2-20 Hz. Some loose electrode artifact contaminated on his right frontal leads. IMPRESSION: This is an abnormal electroencephalogram because of persistent slowing superimposed with multiple movement artifact, lead artifact as well as muscle artifact. During the study, there is no electroencephalographic, paroxysmal activities noted. Please correlate the finding with neurological and radiological studies. Lucien Lundberg MD [facility]
[2017-05-28 11:52] LABS: BASO % 0.8 % (0.0-2.0); EOS # 0.1 K/uL (0.0-0.7); EOS % 2.8 % (0.0-4.0); HEMOGLOBIN 14.2 g/dL (12.0-18.0); LYMPH # 1.4 K/uL (1.0-4.3); LYMPH % 27.8 % (20.0-40.0); MEAN CORPUSCULAR HGB CONC 33.4 g/dL (33.0-37.0); MEAN PLATELET VOLUME 10.6 fL (7.2-11.7); MONO # 0.4 K/uL (0.0-0.8); NEUT # 3.1 K/uL (1.8-7.0); NEUT % 60.6 % (50.0-75.0); NRBC % 0.1 % (0.0-2.0); RBC 4.73 Mil/uL (4.40-5.90); RED CELL DISTRIBUTION WIDTH 14.4 % (11.5-14.5); WHITE BLOOD COUNT 5.2 K/uL (4.8-10.8)
[2017-05-28 12:23] LABS: ALB/GLOB RATIO 1.7 (1.0-2.1); ALBUMIN 3.9 g/dL (3.5-5.0); ALT/SGPT 49 U/L (21-72); AST/SGOT 22 U/L (17-59); BLOOD UREA NITROGEN 18 mg/dL (9-20); CALCIUM 8.6 mg/dl (8.6-10.4); GFR AFRICAN-AMERICAN > 60; GFR NON-AFRICAN AMERICAN > 60; MAGNESIUM 1.8 mg/dL (1.6-2.3)
--- NOTE | 2017-05-28 13:16 | PCM.PYCHPN ---
Psychiatric Progress Note - Psychiatric Progress Note Patient seen today, length of contact: 15 min Patient Chief Complaint: I'm fine Problems Identified/Issues Discussed: Patient seen and evaluated, chart reviewed and discussed with the nurse. As per the staff, patient remained forgetful, demented and internally preoccupied. He still appears confused and delusional. Patient remained isolated, confined and withdrawn. Patient is compliant with medications and denies any side effects. Symptoms are improving but need more time to stabilize. Support and psychoeducation given. Medication Change: No Medical Record Reviewed: Yes Mental Status Examination - Cognitive Function Orientation: Person Attention: Poor Concentration: Poor Association: Loose Fund of Knowledge: Poor - Mood Mood: Anxious - Affect Affect: Constricted - Speech Speech: Soft - Formal Thought Process Formal Thought Process: Loosening of associations - Suicidal Ideation Suicidal Ideation: No - Homicidal Ideation Homicidal Ideation: No Goal/Treatment Plan - Goal/Treatment Plan Need for Continued Stay: Discharge may exacerbated symptoms Progress Toward Problem(s) and Goals/Treatment Plan: Pt remained refused, demented and forgetful. Patient does not have any capacity to make any medical decisions. - Smoking Cessation Smoking Cessation Initiated: No
--- NOTE | 2017-05-28 13:16 | PCM.PYCHPN ---
Psychiatric Progress Note - Psychiatric Progress Note Patient seen today, length of contact: 15 min Patient Chief Complaint: I am feeling joon.' Problems Identified/Issues Discussed: Patient seen and evaluated, chart reviewed and discussed with the nurse. Patient remained forgetful, demented and internally preoccupied. He still appears confused and delusional. Patient remained isolated, confined and withdrawn. Patient is compliant with medications and denies any side effects. Symptoms are improving but need more time to stabilize. Support and psychoeducation given. Medication Change: No Medical Record Reviewed: Yes Mental Status Examination - Cognitive Function Orientation: Person Memory: Intact Attention: Poor Concentration: Poor Association: Loose Fund of Knowledge: Poor - Mood Mood: Anxious - Affect Affect: Constricted - Speech Speech: Soft - Formal Thought Process Formal Thought Process: Loosening of associations - Suicidal Ideation Suicidal Ideation: No - Homicidal Ideation Homicidal Ideation: No Goal/Treatment Plan - Goal/Treatment Plan Need for Continued Stay: Severe depression anxiety, Severe functional impairment Progress Toward Problem(s) and Goals/Treatment Plan: Pt remained disoriented and confused. Continue same meds. Psychiatry will follow up - Smoking Cessation Smoking Cessation Initiated: No
[2017-05-29] MEDS: Multiple Vitamins Tab PO SCH (09:25)
--- NOTE | 2017-05-29 09:53 | CP.PCM.PN ---
<Matilda Rebolledo - Last Filed: 05/29/17 14:15> Subjective - Date & Time of Evaluation Date of Evaluation: 05/29/17 Time of Evaluation: 09:49 - Subjective Subjective: Medicine Progress Note: Hospitalist Service Patient seen and examined at bedside. Per nursing no acute events overnight. Patient is doing well, offers no complaints at this time. Delayed speech improved this morning. Alert, awake and orientated to person, place, time. Denies seizures, headaches, dizziness, cp, palpitations, sob, abdominal pain, urinary symptoms, changes in bowel habits. Objective - Vital Signs/Intake and Output Vital Signs (last 24 hours): Temp Pulse Resp BP Pulse Ox 98.1 F 68 20 107/68 98 05/29/17 07:35 05/29/17 08:00 05/29/17 07:35 05/29/17 07:35 05/29/17 07:35 Intake and Output: 05/29/17 05/29/17 06:59 18:59 Intake Total 500 Output Total 550 Balance -50 - Medications Medications: Current Medications Famotidine (Pepcid) 20 mg PO DAILY [facility] Last Admin: 05/29/17 09:25 Dose: 20 mg Folic Acid (Folic Acid) 1 mg PO DAILY [facility] Last Admin: 05/29/17 09:25 Dose: 1 mg Heparin Sodium (Porcine) (Heparin) 5,000 units SC Q8H [facility] Last Admin: 05/29/17 03:00 Dose: 5,000 units Levetiracetam (Keppra) 1,000 mg PO Q12H [facility] Last Admin: 05/29/17 09:25 Dose: 1,000 mg Lorazepam (Ativan) 1 mg PO Q6H PRN PRN Reason: Seizure activity Multivitamins (Hexavitamin) 1 tab PO DAILY [facility] Last Admin: 05/29/17 09:25 Dose: 1 tab Thiamine HCl (Vitamin B1 Tab) 100 mg PO DAILY [facility] Last Admin: 05/29/17 09:25 Dose: 100 mg - Labs Labs: 05/28/17 11:40 05/28/17 11:40 - Constitutional Appears: Well, No Acute Distress - Head Exam Head Exam: ATRAUMATIC, NORMAL INSPECTION, NORMOCEPHALIC - Eye Exam Eye Exam: EOMI, Normal appearance - ENT Exam ENT Exam: Mucous Membranes Moist - Neck Exam Neck Exam: Full ROM - Respiratory Exam Respiratory Exam: Clear to Ausculation Bilateral, NORMAL BREATHING PATTERN. absent: Rales, Rhonchi, Wheezes - Cardiovascular Exam Cardiovascular Exam: REGULAR RHYTHM, +S1, +S2. absent: Murmur - GI/Abdominal Exam GI & Abdominal Exam: Soft, Normal Bowel Sounds. absent: Guarding, Rigid, Tenderness - Extremities Exam Extremities Exam: Normal Inspection. absent: Calf Tenderness - Neurological Exam Neurological Exam: Alert, Awake, CN II-XII Intact, Oriented x3 Neuro motor strength exam: Left Upper Extremity: 5, Right Upper Extremity: 5, Left Lower Extremity: 5, Right Lower Extremity: 5 - Psychiatric Exam Psychiatric exam: Normal Affect, Normal Mood - Skin Skin Exam: Dry, Normal Color, Warm Assessment and Plan (1) Seizure Assessment & Plan: * Neurology (Dr. Lundberg) on board-->help appreciated * Had recommend if stable for 24hour period for discharge and should have follow-up visit as outpatient * Stable, afebrile * Will discontinue telemetry at this time * Will monitor labs work qweekly (sunday) * Continue Keppra 1000mg PO Q12H * Ativan 1mg Q6H prn seizure activity * F/U phenytoin level * EEG: abnormal study, persistent slowing superimposed with multiple movement artifact, lead artifact as well as muscle artifact. 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 global parenchymal volume loss * Head CT: No evidence of an acute intracranial hemorrhage, midline shift or mass effect is identified. Multifocal left mandibular and maxillary periodontal and -periapical lucency with retained roots and multifocal dental carious lesions. There is comminuted fracture deformity of the nasal bones. * Patient was evaluated by Physical Therapy, Occupational Therapy * Seizure precautions, aspiration precautions Status: Acute (2) Alcohol intoxication Assessment & Plan: * Ativan taper completed 05/24/17 * No current signs or symptoms of alcohol withdrawal * Continue Thiamine 100 mg PO daily * Continue Folic Acid 1 mg PO daily * Continue Multivitamins PO daily * 05/21 ER visit for alcohol abuse/severe intoxication Status: Suspected (3) Change in mental status Assessment & Plan: * Contributing factors: alcohol abuse, seizure, concern for Wernicke-Korsakoff? * F/U vitamin B1 level * Folic acid 1mg PO daily * Multivitamin 1 tab PO daily * Thiamine 100mg PO daily * Completed Ativan taper completed 05/24/17 * Per latest Dr. 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 Multifocal left mandibular and maxillary periodontal and -periapical lucency with retained roots and multifocal dental carious lesions. There is comminuted fracture deformity of the nasal bones. * TSH: 1.21 * Vitamin B12: 407 * RPR: nonreactive * Hepatitis panel: negative * HIV: negative Status: Acute (4) Prophylactic measure Assessment & Plan: * Pepcid 20mg PO Daily * Heparin 5000U SC Q12H * F/u with Social work and Case Management regarding discharge planning Status: Acute <Juliet Echevarria V - Last Filed: 05/29/17 19:22> Objective - Vital Signs/Intake and Output Vital Signs (last 24 hours): Temp Pulse Resp BP Pulse Ox 97.4 F L 61 18 101/62 97 05/29/17 16:00 05/29/17 16:00 05/29/17 16:00 05/29/17 16:00 05/29/17 16:00 - Medications Medications: Current Medications Famotidine (Pepcid) 20 mg PO DAILY [facility] Last Admin: 05/29/17 09:25 Dose: 20 mg Folic Acid (Folic Acid) 1 mg PO DAILY [facility] Last Admin: 05/29/17 09:25 Dose: 1 mg Heparin Sodium (Porcine) (Heparin) 5,000 units SC Q8H [facility] Last Admin: 05/29/17 18:29 Dose: 5,000 units Levetiracetam (Keppra) 1,000 mg PO Q12H [facility] Last Admin: 05/29/17 09:25 Dose: 1,000 mg Lorazepam (Ativan) 1 mg PO Q6H PRN PRN Reason: Seizure activity Multivitamins (Hexavitamin) 1 tab PO DAILY [facility] Last Admin: 05/29/17 09:25 Dose: 1 tab Thiamine HCl (Vitamin B1 Tab) 100 mg PO DAILY [facility] Last Admin: 05/29/17 09:25 Dose: 100 mg - Labs Labs: 05/28/17 11:40 05/28/17 11:40 Attending/Attestation - Attestation I have personally seen and examined this patient.: Yes I have fully participated in the care of the patient.: Yes I have reviewed all pertinent clinical information, including history, physical exam and plan: Yes Notes (Text): patient seen, examined and case discussed with dayti daytime resident. Patient seen this morning and denies acute complaints. per nursing, no events reported overNight. Patient reports he has family in [place]. however, patient cannot recall names no phone nu Numbers of family members. We'll need to coordinate with case management and social work to find family and to see if they want to be involved in patient's care. Per psych, patient does not have any capacity to make medical decisions, will need to follow-up with case management and social work in regards to discharge planning. As addendum to resident physical: CN 2-12 grossly intact, negative Babinski sign , strength upper and lower 5/5 strength, speaks in [place] Assessment/Plan (1) Seizure Assessment & Plan: * Neurology (Dr. Lundberg) on board-->help appreciated * Had recommend if stable for 24hour period for discharge and should have follow-up visit as outpatient * Stable, afebrile * Continue to monitor on telemetry * Continue Keppra 1000mg PO Q12H * Ativan 1mg Q6H prn seizure activity * F/U phenytoin level * EEG: abnormal study, persistent slowing superimposed with multiple movement artifact, lead artifact as well as muscle artifact. 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 global parenchymal volume loss * Head CT: No evidence of an acute intracranial hemorrhage, midline shift or mass effect is identified. Multifocal left mandibular and maxillary periodontal and -periapical lucency with retained roots and multifocal dental carious lesions. There is comminuted fracture deformity of the nasal bones. * Physical Therapy, Occupational Therapy ordered * Seizure precautions, aspiration precautions (2) Alcohol intoxication Assessment & Plan: * Ativan taper completed 05/24/17 * No current signs or symptoms of alcohol withdrawal * Continue Thiamine 100 mg PO daily * Continue Folic Acid 1 mg PO daily * Continue Multivitamins PO daily * 05/21 ER visit for alcohol abuse/sever intoxication Status: Suspected (3) Change in mental status Assessment & Plan: * Contributing: alcohol abuse, seizure, concern for Wernicke-Korsakoff? * Folic acid 1mg PO daily * MVI 1 tab PO daily * Thiamine 100mg PO daily * Completed Ativan taper completed 05/24/17 * Per latest Dr. 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 global parenchymal volume loss * Head CT: No evidence of an acute intracranial hemorrhage, midline shift or mass effect is identified. Multifocal left mandibular and maxillary periodontal and -periapical lucency with retained roots and multifocal dental carious lesions. There is comminuted fracture deformity of the nasal bones. * TSH: 1.21 * Vitamin B12: 407 * RPR: nonreactive * Hepatitis panel: negative * HIV: negative (4) Prophylactic measure Assessment & Plan: * Pepcid 20mg PO Daily * Heparin 5000U SC Q12H * F/u with social and case management regarding discharge planning Status: Acute Disposition: Per psych, patient does not have any capacity to make any medical decisions. Will need to follow-up with social and case management in regards to discharge planning. Will need to follow-up in regards of guardianship.
--- NOTE | 2017-05-30 06:48 | CP.PCM.PN ---
<Matilda Rebolledo - Last Filed: 05/30/17 12:39> Subjective - Date & Time of Evaluation Date of Evaluation: 05/30/17 Time of Evaluation: 06:46 - Subjective Subjective: Medicine Progress Note: Hospitalist Service Patient seen and examined at bedside. Per nursing, no acute events overnight. Patient is doing well, offers no complaints at this time. AAOx3. Patient states that he has a cousin in [place] named Galdino Manning, however does not know his number or address. Denies headaches, dizziness, cp, palpitations, sob, abdominal pain, urinary symptoms, changes in bowel habits. Objective - Vital Signs/Intake and Output Vital Signs (last 24 hours): Temp Pulse Resp BP Pulse Ox 98.1 F 72 20 105/65 95 05/29/17 23:40 05/29/17 23:40 05/29/17 23:40 05/29/17 23:40 05/29/17 23:40 - Medications Medications: Current Medications Famotidine (Pepcid) 20 mg PO DAILY [facility] Last Admin: 05/29/17 09:25 Dose: 20 mg Folic Acid (Folic Acid) 1 mg PO DAILY [facility] Last Admin: 05/29/17 09:25 Dose: 1 mg Heparin Sodium (Porcine) (Heparin) 5,000 units SC Q8H [facility] Last Admin: 05/30/17 02:40 Dose: 5,000 units Levetiracetam (Keppra) 1,000 mg PO Q12H [facility] Last Admin: 05/29/17 21:37 Dose: 1,000 mg Lorazepam (Ativan) 1 mg PO Q6H PRN PRN Reason: Seizure activity Multivitamins (Hexavitamin) 1 tab PO DAILY [facility] Last Admin: 05/29/17 09:25 Dose: 1 tab Thiamine HCl (Vitamin B1 Tab) 100 mg PO DAILY [facility] Last Admin: 05/29/17 09:25 Dose: 100 mg - Labs Labs: 05/28/17 11:40 05/28/17 11:40 - Constitutional Appears: Well, No Acute Distress - Head Exam Head Exam: ATRAUMATIC, NORMAL INSPECTION - Eye Exam Eye Exam: EOMI, Normal appearance - ENT Exam ENT Exam: Mucous Membranes Moist - Neck Exam Neck Exam: Full ROM - Respiratory Exam Respiratory Exam: Clear to Ausculation Bilateral, NORMAL BREATHING PATTERN. absent: Rales, Rhonchi, Wheezes - Cardiovascular Exam Cardiovascular Exam: REGULAR RHYTHM, +S1, +S2. absent: Murmur - GI/Abdominal Exam GI & Abdominal Exam: Soft, Normal Bowel Sounds. absent: Guarding, Rigid, Tenderness - Extremities Exam Extremities Exam: Normal Inspection. absent: Calf Tenderness, Tenderness - Neurological Exam Neurological Exam: Alert, Awake, CN II-XII Intact, Oriented x3 Neuro motor strength exam: Left Upper Extremity: 5, Right Upper Extremity: 5, Left Lower Extremity: 5, Right Lower Extremity: 5 Additional comments: Negative Babinski - Psychiatric Exam Psychiatric exam: Normal Affect, Normal Mood - Skin Skin Exam: Dry, Normal Color, Warm Assessment and Plan (1) Seizure Assessment & Plan: * Neurology (Dr. Lundberg) on board-->help appreciated * Had recommend if stable for 24hour period for discharge and should have follow-up visit as outpatient * Stable, afebrile * Will monitor labs work qweekly (sunday) * Continue Keppra 1000mg PO Q12H * Ativan 1mg Q6H prn seizure activity * F/U phenytoin level * EEG: abnormal study, persistent slowing superimposed with multiple movement artifact, lead artifact as well as muscle artifact. 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 global parenchymal volume loss * Head CT: No evidence of an acute intracranial hemorrhage, midline shift or mass effect is identified. Multifocal left mandibular and maxillary periodontal and -periapical lucency with retained roots and multifocal dental carious lesions. There is comminuted fracture deformity of the nasal bones. * Patient was evaluated by Physical Therapy, Occupational Therapy * Seizure precautions, aspiration precautions Status: Acute (2) Alcohol intoxication Assessment & Plan: * Ativan taper completed 05/24/17 * No current signs or symptoms of alcohol withdrawal * Continue Thiamine 100 mg PO daily * Continue Folic Acid 1 mg PO daily * Continue Multivitamins PO daily * 05/21 ER visit for alcohol abuse/severe intoxication Status: Suspected (3) Change in mental status Assessment & Plan: * Contributing factors: alcohol abuse, seizure, concern for Wernicke-Korsakoff? * Folic acid 1mg PO daily * Multivitamin 1 tab PO daily * Thiamine 100mg PO daily * Completed Ativan taper completed 05/24/17 * Per latest Dr. 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 Multifocal left mandibular and maxillary periodontal and -periapical lucency with retained roots and multifocal dental carious lesions. There is comminuted fracture deformity of the nasal bones. * TSH: 1.21 * Vitamin B12: 407 * RPR: nonreactive * Hepatitis panel: negative * HIV: negative Status: Acute (4) Prophylactic measure Assessment & Plan: * Pepcid 20mg PO Daily * Heparin 5000U SC Q12H * F/u with Social work and Case Management regarding discharge planning Status: Acute <Juliet Echevarria V - Last Filed: 05/31/17 00:04> Objective - Vital Signs/Intake and Output Vital Signs (last 24 hours): Temp Pulse Resp BP Pulse Ox 97.8 F 62 20 102/62 94 L 05/30/17 16:00 05/30/17 16:00 05/30/17 16:00 05/30/17 16:00 05/30/17 16:00 - Medications Medications: Current Medications Famotidine (Pepcid) 20 mg PO DAILY [facility] Last Admin: 05/30/17 09:45 Dose: 20 mg Folic Acid (Folic Acid) 1 mg PO DAILY [facility] Last Admin: 05/30/17 09:45 Dose: 1 mg Heparin Sodium (Porcine) (Heparin) 5,000 units SC Q8H [facility] Last Admin: 05/30/17 18:12 Dose: 5,000 units Levetiracetam (Keppra) 1,000 mg PO Q12H [facility] Last Admin: 05/30/17 21:42 Dose: 1,000 mg Lorazepam (Ativan) 1 mg PO Q6H PRN PRN Reason: Seizure activity Multivitamins (Hexavitamin) 1 tab PO DAILY [facility] Last Admin: 05/30/17 09:45 Dose: 1 tab Thiamine HCl (Vitamin B1 Tab) 100 mg PO DAILY [facility] Last Admin: 05/30/17 09:45 Dose: 100 mg - Labs Labs: 05/28/17 11:40 05/28/17 11:40 Attending/Attestation - Attestation I have personally seen and examined this patient.: Yes I have fully participated in the care of the patient.: Yes I have reviewed all pertinent clinical information, including history, physical exam and plan: Yes Notes (Text): This is a late computer entry for 05/30/17. patient seen, examined and case discussed with daytime resident. Patient seen this morning and denies acute complaints. per nursing, no events reported overnight. Patient reports he has family in [place], was able to say name of his cousin. He cannot remember phone number nor his address today. Will need to follow-up with case and social work in regards to discharge planning. As addendum to resident physical: CN 2-12 grossly intact, negative Babinski sign , strength upper and lower 5/5 strength, speaks in [place] Assessment/Plan (1) Seizure Assessment & Plan: * Neurology (Dr. Lundberg) on board-->help appreciated * Had recommend if stable for 24hour period for discharge and should have follow-up visit as outpatient * Stable, afebrile * Continue to monitor on telemetry * Continue Keppra 1000mg PO Q12H * Ativan 1mg Q6H prn seizure activity * F/U phenytoin level * EEG: abnormal study, persistent slowing superimposed with multiple movement artifact, lead artifact as well as muscle artifact. 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 global parenchymal volume loss * Head CT: No evidence of an acute intracranial hemorrhage, midline shift or mass effect is identified. Multifocal left mandibular and maxillary periodontal and -periapical lucency with retained roots and multifocal dental carious lesions. There is comminuted fracture deformity of the nasal bones. * Physical Therapy, Occupational Therapy ordered * Seizure precautions, aspiration precautions (2) Alcohol intoxication Assessment & Plan: * Ativan taper completed 05/24/17 * No current signs or symptoms of alcohol withdrawal * Continue Thiamine 100 mg PO daily * Continue Folic Acid 1 mg PO daily * Continue Multivitamins PO daily * 05/21 ER visit for alcohol abuse/sever intoxication Status: Suspected (3) Change in mental status Assessment & Plan: * Contributing: alcohol abuse, seizure, concern for Wernicke-Korsakoff * Folic acid 1mg PO daily * MVI 1 tab PO daily * Thiamine 100mg PO daily * Completed Ativan taper completed 05/24/17 * Per latest Dr. 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 global parenchymal volume loss * Head CT: No evidence of an acute intracranial hemorrhage, midline shift or mass effect is identified. Multifocal left mandibular and maxillary periodontal and -periapical lucency with retained roots and multifocal dental carious lesions. There is comminuted fracture deformity of the nasal bones. * TSH: 1.21 * Vitamin B12: 407 * RPR: nonreactive * Hepatitis panel: negative * HIV: negative (4) Prophylactic measure Assessment & Plan: * Pepcid 20mg PO Daily * Heparin 5000U SC Q12H * F/u with social and case management regarding discharge planning Status: Acute Disposition: Per psych, patient does not have any capacity to make any medical decisions. Will need to follow-up with social and case management in regards to discharge planning. Will need to follow-up in regards of guardianship. Patient remembers a name of relative in [place], but cannot provide a name nor phone number.
[2017-05-30] MEDS: Multiple Vitamins Tab PO SCH (09:45)
[2017-05-31 01:14] LABS: PHENYTOIN,FREE <0.5 mg/L (1.0-2.0)
--- NOTE | 2017-05-31 06:59 | CP.PCM.PN ---
<Matilda Rebolledo - Last Filed: 05/31/17 16:47> Subjective - Date & Time of Evaluation Date of Evaluation: 05/31/17 Time of Evaluation: 06:57 - Subjective Subjective: Medicine Progress Note: Hospitalist Service Patient seen and examined at bedside. Per nursing no acute events overnight. Patient is doing well offers, states that his cousin Galdino lives in [facility]. Offers no complaints. Last BM was this morning. Denies headaches, dizziness, cp, palpitations, sob, abdominal pain, urinary symptoms, changes in bowel habits. Objective - Vital Signs/Intake and Output Vital Signs (last 24 hours): Temp Pulse Resp BP Pulse Ox 98.4 F 70 20 105/71 97 05/30/17 23:37 05/30/17 23:37 05/30/17 23:37 05/30/17 23:37 05/30/17 23:37 - Medications Medications: Current Medications Famotidine (Pepcid) 20 mg PO DAILY [facility] Last Admin: 05/30/17 09:45 Dose: 20 mg Folic Acid (Folic Acid) 1 mg PO DAILY [facility] Last Admin: 05/30/17 09:45 Dose: 1 mg Heparin Sodium (Porcine) (Heparin) 5,000 units SC Q8H [facility] Last Admin: 05/31/17 02:47 Dose: 5,000 units Levetiracetam (Keppra) 1,000 mg PO Q12H [facility] Last Admin: 05/30/17 21:42 Dose: 1,000 mg Lorazepam (Ativan) 1 mg PO Q6H PRN PRN Reason: Seizure activity Multivitamins (Hexavitamin) 1 tab PO DAILY [facility] Last Admin: 05/30/17 09:45 Dose: 1 tab Thiamine HCl (Vitamin B1 Tab) 100 mg PO DAILY [facility] Last Admin: 05/30/17 09:45 Dose: 100 mg - Labs Labs: 05/28/17 11:40 05/28/17 11:40 - Constitutional Appears: Well, No Acute Distress - Head Exam Head Exam: ATRAUMATIC, NORMAL INSPECTION, NORMOCEPHALIC - Eye Exam Eye Exam: EOMI, Normal appearance - ENT Exam ENT Exam: Mucous Membranes Moist - Neck Exam Neck Exam: Full ROM - Respiratory Exam Respiratory Exam: Clear to Ausculation Bilateral, NORMAL BREATHING PATTERN. absent: Rales, Rhonchi, Wheezes - Cardiovascular Exam Cardiovascular Exam: REGULAR RHYTHM, +S1, +S2 - GI/Abdominal Exam GI & Abdominal Exam: Soft, Normal Bowel Sounds. absent: Guarding, Rigid, Tenderness - Extremities Exam Extremities Exam: Normal Inspection. absent: Calf Tenderness - Neurological Exam Neurological Exam: Alert, Awake, Oriented x3 - Psychiatric Exam Psychiatric exam: Normal Affect, Normal Mood - Skin Skin Exam: Dry, Normal Color, Warm Assessment and Plan (1) Seizure Assessment & Plan: * Neurology (Dr. Lundberg) on board-->help appreciated * Had recommend if stable for 24hour period for discharge and should have follow-up visit as outpatient * Stable, afebrile * Will monitor labs work qweekly (sunday) * Continue Keppra 1000mg PO Q12H * Ativan 1mg Q6H prn seizure activity * EEG: abnormal study, persistent slowing superimposed with multiple movement artifact, lead artifact as well as muscle artifact. 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 global parenchymal volume loss * Head CT: No evidence of an acute intracranial hemorrhage, midline shift or mass effect is identified. Multifocal left mandibular and maxillary periodontal and -periapical lucency with retained roots and multifocal dental carious lesions. There is comminuted fracture deformity of the nasal bones. * Patient was evaluated by Physical Therapy, Occupational Therapy * Seizure precautions, aspiration precautions Status: Acute (2) Alcohol intoxication Assessment & Plan: * Ativan taper completed 05/24/17 * No current signs or symptoms of alcohol withdrawal * Continue Thiamine 100 mg PO daily * Continue Folic Acid 1 mg PO daily * Continue Multivitamins PO daily * 05/21 ER visit for alcohol abuse/severe intoxication Status: Suspected (3) Change in mental status Assessment & Plan: * Contributing factors: alcohol abuse, seizure, concern for Wernicke-Korsakoff? * Folic acid 1mg PO daily * Multivitamin 1 tab PO daily * Thiamine 100mg PO daily * Completed Ativan taper completed 05/24/17 * Per latest Dr. 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 Multifocal left mandibular and maxillary periodontal and -periapical lucency with retained roots and multifocal dental carious lesions. There is comminuted fracture deformity of the nasal bones. * TSH: 1.21 * Vitamin B12: 407 * RPR: nonreactive * Hepatitis panel: negative * HIV: negative Status: Acute (4) Prophylactic measure Assessment & Plan: * Pepcid 20mg PO Daily * Heparin 5000U SC Q12H * F/u with Social work and Case Management regarding discharge planning Status: Acute <Juliet Echevarria V - Last Filed: 06/02/17 10:57> Objective - Vital Signs/Intake and Output Vital Signs (last 24 hours): Temp Pulse Resp BP Pulse Ox 97.4 F L 56 L 20 99/62 L 97 06/02/17 07:00 06/02/17 07:00 06/02/17 07:00 06/02/17 07:00 06/02/17 07:00 Intake and Output: 06/02/17 06/02/17 06:59 18:59 Intake Total 240 Balance 240 - Medications Medications: Current Medications Famotidine (Pepcid) 20 mg PO DAILY [facility] Last Admin: 06/02/17 09:55 Dose: 20 mg Folic Acid (Folic Acid) 1 mg PO DAILY [facility] Last Admin: 06/02/17 09:56 Dose: 1 mg Heparin Sodium (Porcine) (Heparin) 5,000 units SC Q8H [facility] Last Admin: 06/02/17 10:07 Dose: 5,000 units Levetiracetam (Keppra) 1,000 mg PO Q12H [facility] Last Admin: 06/02/17 09:55 Dose: 1,000 mg Lorazepam (Ativan) 1 mg PO Q6H PRN PRN Reason: Seizure activity Multivitamins (Hexavitamin) 1 tab PO DAILY [facility] Last Admin: 06/02/17 09:55 Dose: 1 tab Thiamine HCl (Vitamin B1 Tab) 100 mg PO DAILY [facility] Last Admin: 06/02/17 10:02 Dose: 100 mg - Labs Labs: 05/28/17 11:40 05/28/17 11:40 Attending/Attestation - Attestation I have personally seen and examined this patient.: Yes I have fully participated in the care of the patient.: Yes I have reviewed all pertinent clinical information, including history, physical exam and plan: Yes Notes (Text): This is late computer entry for 05/31/17. Patient seen, examined and case discussed with day-time resident. Patient has not any further episodes in regards to seizures. patient denies acute complaints. Patient remembers he has a cousin in [facility] but cannot remember address and nor phone number. Per psych, patient does not have any capacity to make medical decisions, will need to follow-up with case management and social work in regards to discharge planning. As addendum to resident physical: CN 2-12 grossly intact, negative Babinski sign , strength upper and lower 5/5, speaks in Samoan Assessment/Plan (1) Seizure Assessment & Plan: * Neurology (Dr. Lundberg) on board-->help appreciated * Had recommend if stable for 24hour period for discharge and should have follow-up visit as outpatient * Stable, afebrile * Continue to monitor on telemetry * Continue Keppra 1000mg PO Q12H * Ativan 1mg Q6H prn seizure activity * F/U phenytoin level * EEG: abnormal study, persistent slowing superimposed with multiple movement artifact, lead artifact as well as muscle artifact. 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 global parenchymal volume loss * Head CT: No evidence of an acute intracranial hemorrhage, midline shift or mass effect is identified. Multifocal left mandibular and maxillary periodontal and -periapical lucency with retained roots and multifocal dental carious lesions. There is comminuted fracture deformity of the nasal bones. * Physical Therapy, Occupational Therapy ordered * Seizure precautions, aspiration precautions (2) Alcohol intoxication Assessment & Plan: * Ativan taper completed 05/24/17 * No current signs or symptoms of alcohol withdrawal * Continue Thiamine 100 mg PO daily * Continue Folic Acid 1 mg PO daily * Continue Multivitamins PO daily * 05/21 ER visit for alcohol abuse/sever intoxication Status: Suspected (3) Change in mental status Assessment & Plan: * Contributing: alcohol abuse, seizure, concern for Wernicke-Korsakoff? * Folic acid 1mg PO daily * MVI 1 tab PO daily * Thiamine 100mg PO daily * Completed Ativan taper completed 05/24/17 * Per latest Dr. 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 global parenchymal volume loss * Head CT: No evidence of an acute intracranial hemorrhage, midline shift or mass effect is identified. Multifocal left mandibular and maxillary periodontal and -periapical lucency with retained roots and multifocal dental carious lesions. There is comminuted fracture deformity of the nasal bones. * TSH: 1.21 * Vitamin B12: 407 * RPR: nonreactive * Hepatitis panel: negative * HIV: negative (4) Prophylactic measure Assessment & Plan: * Pepcid 20mg PO Daily * Heparin 5000U SC Q12H * F/u with social and case management regarding discharge planning Status: Acute Disposition: Per psych, patient does not have any capacity to make any medical decisions. Will need to follow-up with social and case management in regards to discharge planning.
[2017-05-31] MEDS: Multiple Vitamins Tab PO SCH (09:51)
--- NOTE | 2017-06-01 07:42 | CP.PCM.PN ---
<Matilda Rebolledo - Last Filed: 06/01/17 13:36> Subjective - Date & Time of Evaluation Date of Evaluation: 06/01/17 Time of Evaluation: 07:40 - Subjective Subjective: Medicine Progress Note: Hospitalist Service Patient seen and examined at bedside. Per nursing no acute events overnight. Patient is doing well, offers no complaints at this time. No seizures. Denies headaches, dizziness, cp, palpitations, sob, abdominal pain, urinary symptoms, changes in bowel habits. Objective - Vital Signs/Intake and Output Vital Signs (last 24 hours): Temp Pulse Resp BP Pulse Ox 97.9 F 60 20 105/64 97 05/31/17 23:45 05/31/17 23:45 05/31/17 23:45 05/31/17 23:45 05/31/17 23:45 Intake and Output: 06/01/17 06/01/17 06:59 18:59 Output Total 650 Balance -650 - Medications Medications: Current Medications Famotidine (Pepcid) 20 mg PO DAILY [facility] Last Admin: 05/31/17 09:51 Dose: 20 mg Folic Acid (Folic Acid) 1 mg PO DAILY [facility] Last Admin: 05/31/17 09:51 Dose: 1 mg Heparin Sodium (Porcine) (Heparin) 5,000 units SC Q8H [facility] Last Admin: 06/01/17 03:08 Dose: 5,000 units Levetiracetam (Keppra) 1,000 mg PO Q12H [facility] Last Admin: 05/31/17 21:39 Dose: 1,000 mg Lorazepam (Ativan) 1 mg PO Q6H PRN PRN Reason: Seizure activity Multivitamins (Hexavitamin) 1 tab PO DAILY [facility] Last Admin: 05/31/17 09:51 Dose: 1 tab Thiamine HCl (Vitamin B1 Tab) 100 mg PO DAILY [facility] Last Admin: 05/31/17 09:50 Dose: 100 mg - Labs Labs: 05/28/17 11:40 05/28/17 11:40 - Constitutional Appears: Well, No Acute Distress, Older Than Stated Age - Head Exam Head Exam: ATRAUMATIC, NORMAL INSPECTION - Eye Exam Eye Exam: EOMI, Normal appearance - ENT Exam ENT Exam: Mucous Membranes Moist - Neck Exam Neck Exam: Full ROM - Respiratory Exam Respiratory Exam: Clear to Ausculation Bilateral, NORMAL BREATHING PATTERN. absent: Rales, Rhonchi, Wheezes - Cardiovascular Exam Cardiovascular Exam: REGULAR RHYTHM, +S1, +S2 - GI/Abdominal Exam GI & Abdominal Exam: Soft, Normal Bowel Sounds. absent: Guarding, Rigid, Tenderness - Extremities Exam Extremities Exam: Normal Inspection. absent: Calf Tenderness - Neurological Exam Neurological Exam: Alert, Awake, CN II-XII Intact, Oriented x3 - Psychiatric Exam Psychiatric exam: Normal Affect, Normal Mood - Skin Skin Exam: Dry, Normal Color, Warm Assessment and Plan (1) Seizure Assessment & Plan: * Neurology (Dr. Lundberg) on board-->help appreciated * Had recommend if stable for 24hour period for discharge and should have follow-up visit as outpatient * Stable, afebrile * Will monitor labs work qweekly (sunday) * Continue Keppra 1000mg PO Q12H * Ativan 1mg Q6H prn seizure activity * EEG: abnormal study, persistent slowing superimposed with multiple movement artifact, lead artifact as well as muscle artifact. 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 global parenchymal volume loss * Head CT: No evidence of an acute intracranial hemorrhage, midline shift or mass effect is identified. Multifocal left mandibular and maxillary periodontal and -periapical lucency with retained roots and multifocal dental carious lesions. There is comminuted fracture deformity of the nasal bones. * Patient was evaluated by Physical Therapy, Occupational Therapy * Seizure precautions, aspiration precautions Status: Acute (2) Alcohol intoxication Assessment & Plan: * Ativan taper completed 05/24/17 * No current signs or symptoms of alcohol withdrawal * Continue Thiamine 100 mg PO daily * Continue Folic Acid 1 mg PO daily * Continue Multivitamins PO daily * 05/21 ER visit for alcohol abuse/severe intoxication Status: Suspected (3) Change in mental status Assessment & Plan: * Contributing factors: alcohol abuse, seizure, concern for Wernicke-Korsakoff? * Folic acid 1mg PO daily * Multivitamin 1 tab PO daily * Thiamine 100mg PO daily * Completed Ativan taper completed 05/24/17 * Per latest Dr. 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 Multifocal left mandibular and maxillary periodontal and -periapical lucency with retained roots and multifocal dental carious lesions. There is comminuted fracture deformity of the nasal bones. * TSH: 1.21 * Vitamin B12: 407 * RPR: nonreactive * Hepatitis panel: negative * HIV: negative Status: Acute (4) Prophylactic measure Assessment & Plan: * Pepcid 20mg PO Daily * Heparin 5000U SC Q12H * Patient is awaiting guardianship and assisted living; patient states that he has a cousin (Galdino Manning) in [place] however unable to provide a number or address, this information was provided to . Will f/u to see if we can get in contact with his family member. Status: Acute <Juliet Echevarria V - Last Filed: 06/02/17 10:59> Objective - Vital Signs/Intake and Output Vital Signs (last 24 hours): Temp Pulse Resp BP Pulse Ox 97.4 F L 56 L 20 99/62 L 97 06/02/17 07:00 06/02/17 07:00 06/02/17 07:00 06/02/17 07:00 06/02/17 07:00 Intake and Output: 06/02/17 06/02/17 06:59 18:59 Intake Total 240 Balance 240 - Medications Medications: Current Medications Famotidine (Pepcid) 20 mg PO DAILY [facility] Last Admin: 06/02/17 09:55 Dose: 20 mg Folic Acid (Folic Acid) 1 mg PO DAILY [facility] Last Admin: 06/02/17 09:56 Dose: 1 mg Heparin Sodium (Porcine) (Heparin) 5,000 units SC Q8H [facility] Last Admin: 06/02/17 10:07 Dose: 5,000 units Levetiracetam (Keppra) 1,000 mg PO Q12H [facility] Last Admin: 06/02/17 09:55 Dose: 1,000 mg Lorazepam (Ativan) 1 mg PO Q6H PRN PRN Reason: Seizure activity Multivitamins (Hexavitamin) 1 tab PO DAILY [facility] Last Admin: 06/02/17 09:55 Dose: 1 tab Thiamine HCl (Vitamin B1 Tab) 100 mg PO DAILY [facility] Last Admin: 06/02/17 10:02 Dose: 100 mg - Labs Labs: 05/28/17 11:40 05/28/17 11:40 Attending/Attestation - Attestation I have personally seen and examined this patient.: Yes I have fully participated in the care of the patient.: Yes I have reviewed all pertinent clinical information, including history, physical exam and plan: Yes Notes (Text): This is late computer entry for 06/01/17. Patient seen, examined and case discussed with day-time resident. Patient has not any further episodes in regards to seizures. patient denies acute complaints. Patient remembers he has a cousin in [facility] but cannot remember address and nor phone number. Per psych, patient does not have any capacity to make medical decisions, will need to follow-up with case management and social work in regards to discharge planning. As addendum to resident physical: CN 2-12 grossly intact, negative Babinski sign , strength upper and lower 5/5, speaks in R[place]andan Assessment/Plan (1) Seizure Assessment & Plan: * Neurology (Dr. Lundberg) on board-->help appreciated * Had recommend if stable for 24hour period for discharge and should have follow-up visit as outpatient * Stable, afebrile * Continue to monitor on telemetry * Continue Keppra 1000mg PO Q12H * Ativan 1mg Q6H prn seizure activity * F/U phenytoin level * EEG: abnormal study, persistent slowing superimposed with multiple movement artifact, lead artifact as well as muscle artifact. 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 global parenchymal volume loss * Head CT: No evidence of an acute intracranial hemorrhage, midline shift or mass effect is identified. Multifocal left mandibular and maxillary periodontal and -periapical lucency with retained roots and multifocal dental carious lesions. There is comminuted fracture deformity of the nasal bones. * Physical Therapy, Occupational Therapy ordered * Seizure precautions, aspiration precautions (2) Alcohol intoxication Assessment & Plan: * Ativan taper completed 05/24/17 * No current signs or symptoms of alcohol withdrawal * Continue Thiamine 100 mg PO daily * Continue Folic Acid 1 mg PO daily * Continue Multivitamins PO daily * 12/11 ER visit for alcohol abuse/sever intoxication Status: Suspected (3) Change in mental status Assessment & Plan: * Contributing: alcohol abuse, seizure, concern for Wernicke-Korsakoff? * Folic acid 1mg PO daily * MVI 1 tab PO daily * Thiamine 100mg PO daily * Completed Ativan taper completed 05/24/17 * Per latest Dr. 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 global parenchymal volume loss * Head CT: No evidence of an acute intracranial hemorrhage, midline shift or mass effect is identified. Multifocal left mandibular and maxillary periodontal and -periapical lucency with retained roots and multifocal dental carious lesions. There is comminuted fracture deformity of the nasal bones. * TSH: 1.21 * Vitamin B12: 407 * RPR: nonreactive * Hepatitis panel: negative * HIV: negative (4) Prophylactic measure Assessment & Plan: * Pepcid 20mg PO Daily * Heparin 5000U SC Q12H * F/u with social and case management regarding discharge planning Status: Acute Disposition: Per psych, patient does not have any capacity to make any medical decisions. Will need to follow-up with social and case management in regards to discharge planning.
[2017-06-01] MEDS: Multiple Vitamins Tab PO SCH (09:26)
--- NOTE | 2017-06-02 02:26 | CP.PCM.PN ---
<Milan Orlando - Last Filed: 06/02/17 06:52> Subjective - Date & Time of Evaluation Date of Evaluation: 06/02/17 Time of Evaluation: 06:45 - Subjective Subjective: Medicine Progress note for Dr. Echevarria Patient seen and examined at bedside. Patient does not report any acute complaints at this time. Per nursing staff, patient was irritable overnight due to the noise level coming from his roommate's television. Objective - Vital Signs/Intake and Output Vital Signs (last 24 hours): Temp Pulse Resp BP Pulse Ox 98 F 74 20 104/68 98 06/01/17 23:50 06/01/17 23:50 06/01/17 23:50 06/01/17 23:50 06/01/17 23:50 Intake and Output: 06/01/17 06/02/17 18:59 06:59 Intake Total 500 Output Total 400 Balance 100 - Medications Medications: Current Medications Famotidine (Pepcid) 20 mg PO DAILY [facility] Last Admin: 06/01/17 09:26 Dose: 20 mg Folic Acid (Folic Acid) 1 mg PO DAILY [facility] Last Admin: 06/01/17 09:26 Dose: 1 mg Heparin Sodium (Porcine) (Heparin) 5,000 units SC Q8H [facility] Last Admin: 06/01/17 19:40 Dose: 5,000 units Levetiracetam (Keppra) 1,000 mg PO Q12H [facility] Last Admin: 06/01/17 22:03 Dose: 1,000 mg Lorazepam (Ativan) 1 mg PO Q6H PRN PRN Reason: Seizure activity Multivitamins (Hexavitamin) 1 tab PO DAILY [facility] Last Admin: 06/01/17 09:26 Dose: 1 tab Thiamine HCl (Vitamin B1 Tab) 100 mg PO DAILY [facility] Last Admin: 06/01/17 09:27 Dose: 100 mg - Labs Labs: 05/28/17 11:40 05/28/17 11:40 - Constitutional Appears: No Acute Distress - Head Exam Head Exam: ATRAUMATIC, NORMOCEPHALIC - Eye Exam Eye Exam: EOMI, Normal appearance - ENT Exam ENT Exam: Mucous Membranes Moist - Respiratory Exam Respiratory Exam: Clear to Ausculation Bilateral. absent: Rales, Rhonchi, Wheezes - Cardiovascular Exam Cardiovascular Exam: REGULAR RHYTHM, +S1, +S2 - GI/Abdominal Exam GI & Abdominal Exam: Soft, Normal Bowel Sounds. absent: Guarding, Tenderness - Extremities Exam Extremities Exam: Normal Inspection - Neurological Exam Neurological Exam: Alert, Awake - Skin Skin Exam: Dry, Warm Assessment and Plan - Assessment and Plan (Free Text) Plan: (1) Seizure Assessment & Plan: * Neurology (Dr. Lundberg) on board-->help appreciated * Had recommend if stable for 24hour period for discharge and should have follow-up visit as outpatient * Stable, afebrile * Will monitor labs work qweekly (sunday) * Continue Keppra 1000mg PO Q12H * Ativan 1mg Q6H prn seizure activity * EEG: abnormal study, persistent slowing superimposed with multiple movement artifact, lead artifact as well as muscle artifact. 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 global parenchymal volume loss * Head CT: No evidence of an acute intracranial hemorrhage, midline shift or mass effect is identified. Multifocal left mandibular and maxillary periodontal and -periapical lucency with retained roots and multifocal dental carious lesions. There is comminuted fracture deformity of the nasal bones. * Patient was evaluated by Physical Therapy, Occupational Therapy * Seizure precautions, aspiration precautions Status: Acute (2) Alcohol intoxication Assessment & Plan: * Ativan taper completed 05/24/17 * No current signs or symptoms of alcohol withdrawal * Continue Thiamine 100 mg PO daily * Continue Folic Acid 1 mg PO daily * Continue Multivitamins PO daily * 05/21 ER visit for alcohol abuse/severe intoxication Status: Suspected (3) Change in mental status Assessment & Plan: * Contributing factors: alcohol abuse, seizure, concern for Wernicke-Korsakoff? * Folic acid 1mg PO daily * Multivitamin 1 tab PO daily * Thiamine 100mg PO daily * Completed Ativan taper completed 05/24/17 * Per latest Dr. 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 Multifocal left mandibular and maxillary periodontal and -periapical lucency with retained roots and multifocal dental carious lesions. There is comminuted fracture deformity of the nasal bones. * TSH: 1.21 * Vitamin B12: 407 * RPR: nonreactive * Hepatitis panel: negative * HIV: negative Status: Acute (4) Prophylactic measure Assessment & Plan: * Pepcid 20mg PO Daily * Heparin 5000U SC Q12H * Patient is awaiting guardianship and assisted living; patient states that he has a cousin (Galdino Manning) in [place] however unable to provide a number or address, this information was provided to SW. Will f/u to see if we can get in contact with his family member. Status: Acute Will DW case with Dr. Wale Orlando PGY-1 <Juliet Echevarria V - Last Filed: 06/02/17 10:59> Objective - Vital Signs/Intake and Output Vital Signs (last 24 hours): Temp Pulse Resp BP Pulse Ox 97.4 F L 56 L 20 99/62 L 97 06/02/17 07:00 06/02/17 07:00 06/02/17 07:00 06/02/17 07:00 06/02/17 07:00 Intake and Output: 06/02/17 06/02/17 06:59 18:59 Intake Total 240 Balance 240 - Medications Medications: Current Medications Famotidine (Pepcid) 20 mg PO DAILY [facility] Last Admin: 06/02/17 09:55 Dose: 20 mg Folic Acid (Folic Acid) 1 mg PO DAILY [facility] Last Admin: 06/02/17 09:56 Dose: 1 mg Heparin Sodium (Porcine) (Heparin) 5,000 units SC Q8H [facility] Last Admin: 06/02/17 10:07 Dose: 5,000 units Levetiracetam (Keppra) 1,000 mg PO Q12H [facility] Last Admin: 06/02/17 09:55 Dose: 1,000 mg Lorazepam (Ativan) 1 mg PO Q6H PRN PRN Reason: Seizure activity Multivitamins (Hexavitamin) 1 tab PO DAILY [facility] Last Admin: 06/02/17 09:55 Dose: 1 tab Thiamine HCl (Vitamin B1 Tab) 100 mg PO DAILY [facility] Last Admin: 06/02/17 10:02 Dose: 100 mg - Labs Labs: 05/28/17 11:40 05/28/17 11:40 Attending/Attestation - Attestation I have personally seen and examined this patient.: Yes I have fully participated in the care of the patient.: Yes I have reviewed all pertinent clinical information, including history, physical exam and plan: Yes Notes (Text): Patient seen, examined and case discussed with day-time resident. Patient has not any further episodes in regards to seizures. patient denies acute complaints. Patient remembers he has a cousin in [facility] but cannot remember address and nor phone number. Per psych, patient does not have any capacity to make medical decisions, will need to follow-up with case management and social work in regards to discharge planning. As addendum to resident physical: CN 2-12 grossly intact, negative Babinski sign , strength upper and lower 5/5, speaks in [place]ic Assessment/Plan (1) Seizure Assessment & Plan: * Neurology (Dr. Lundberg) on board-->help appreciated * Had recommend if stable for 24hour period for discharge and should have follow-up visit as outpatient * Stable, afebrile * Continue to monitor on telemetry * Continue Keppra 1000mg PO Q12H * Ativan 1mg Q6H prn seizure activity * F/U phenytoin level * EEG: abnormal study, persistent slowing superimposed with multiple movement artifact, lead artifact as well as muscle artifact. 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 global parenchymal volume loss * Head CT: No evidence of an acute intracranial hemorrhage, midline shift or mass effect is identified. Multifocal left mandibular and maxillary periodontal and -periapical lucency with retained roots and multifocal dental carious lesions. There is comminuted fracture deformity of the nasal bones. * Physical Therapy, Occupational Therapy ordered * Seizure precautions, aspiration precautions (2) Alcohol intoxication Assessment & Plan: * Ativan taper completed 05/24/17 * No current signs or symptoms of alcohol withdrawal * Continue Thiamine 100 mg PO daily * Continue Folic Acid 1 mg PO daily * Continue Multivitamins PO daily * 05/21 ER visit for alcohol abuse/sever intoxication Status: Suspected (3) Change in mental status Assessment & Plan: * Contributing: alcohol abuse, seizure, concern for Wernicke-Korsakoff? * Folic acid 1mg PO daily * MVI 1 tab PO daily * Thiamine 100mg PO daily * Completed Ativan taper completed 05/24/17 * Per latest Dr. 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 global parenchymal volume loss * Head CT: No evidence of an acute intracranial hemorrhage, midline shift or mass effect is identified. Multifocal left mandibular and maxillary periodontal and -periapical lucency with retained roots and multifocal dental carious lesions. There is comminuted fracture deformity of the nasal bones. * TSH: 1.21 * Vitamin B12: 407 * RPR: nonreactive * Hepatitis panel: negative * HIV: negative (4) Prophylactic measure Assessment & Plan: * Pepcid 20mg PO Daily * Heparin 5000U SC Q12H * F/u with social and case management regarding discharge planning Status: Acute Disposition: Per psych, patient does not have any capacity to make any medical decisions. Will need to follow-up with social and case management in regards to discharge planning.
[2017-06-02] MEDS: Multiple Vitamins Tab PO SCH (09:55)
--- NOTE | 2017-06-03 02:18 | CP.PCM.PN ---
<Milan Orlando - Last Filed: 06/03/17 07:55> Subjective - Date & Time of Evaluation Date of Evaluation: 06/03/17 Time of Evaluation: 06:20 - Subjective Subjective: Medicine Progress note for Dr. Echevarria Patient seen and examined at bedside. Per nursing staff, patient grabbed a carton of milk, opened it, and proceeded to urinate in it. Patient was woken from sleep this morning and was tired but stated that he was feeling well. No acute complaints reported. Objective - Vital Signs/Intake and Output Vital Signs (last 24 hours): Temp Pulse Resp BP Pulse Ox 97.9 F 62 20 103/65 97 06/02/17 23:40 06/02/17 23:40 06/02/17 23:40 06/02/17 23:40 06/02/17 23:40 Intake and Output: 06/02/17 06/03/17 18:59 06:59 Intake Total 480 Balance 480 - Medications Medications: Current Medications Famotidine (Pepcid) 20 mg PO DAILY [facility] Last Admin: 06/02/17 09:55 Dose: 20 mg Folic Acid (Folic Acid) 1 mg PO DAILY [facility] Last Admin: 06/02/17 09:56 Dose: 1 mg Heparin Sodium (Porcine) (Heparin) 5,000 units SC Q8H [facility] Last Admin: 06/02/17 19:02 Dose: 5,000 units Levetiracetam (Keppra) 1,000 mg PO Q12H [facility] Last Admin: 06/02/17 21:44 Dose: 1,000 mg Lorazepam (Ativan) 1 mg PO Q6H PRN PRN Reason: Seizure activity Multivitamins (Hexavitamin) 1 tab PO DAILY [facility] Last Admin: 06/02/17 09:55 Dose: 1 tab Thiamine HCl (Vitamin B1 Tab) 100 mg PO DAILY [facility] Last Admin: 06/02/17 10:02 Dose: 100 mg - Labs Labs: 05/28/17 11:40 05/28/17 11:40 - Constitutional Appears: No Acute Distress - Head Exam Head Exam: ATRAUMATIC, NORMOCEPHALIC - Eye Exam Eye Exam: EOMI, Normal appearance - ENT Exam ENT Exam: Mucous Membranes Moist - Respiratory Exam Respiratory Exam: Clear to Ausculation Bilateral. absent: Rales, Rhonchi, Wheezes - Cardiovascular Exam Cardiovascular Exam: REGULAR RHYTHM, +S1, +S2 - GI/Abdominal Exam GI & Abdominal Exam: Soft, Normal Bowel Sounds. absent: Guarding, Tenderness - Extremities Exam Extremities Exam: Normal Inspection - Neurological Exam Neurological Exam: Alert, Awake - Skin Skin Exam: Dry, Warm Assessment and Plan - Assessment and Plan (Free Text) Plan: (1) Seizure Assessment & Plan: * Neurology (Dr. Lundberg) on board-->help appreciated * Had recommend if stable for 24hour period for discharge and should have follow-up visit as outpatient * Stable, afebrile * Will monitor labs work qweekly (sunday) * Continue Keppra 1000mg PO Q12H * Ativan 1mg Q6H prn seizure activity * EEG: abnormal study, persistent slowing superimposed with multiple movement artifact, lead artifact as well as muscle artifact. 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 global parenchymal volume loss * Head CT: No evidence of an acute intracranial hemorrhage, midline shift or mass effect is identified. Multifocal left mandibular and maxillary periodontal and -periapical lucency with retained roots and multifocal dental carious lesions. There is comminuted fracture deformity of the nasal bones. * Patient was evaluated by Physical Therapy, Occupational Therapy * Seizure precautions, aspiration precautions Status: Acute (2) Alcohol intoxication Assessment & Plan: * Ativan taper completed 05/24/17 * No current signs or symptoms of alcohol withdrawal * Continue Thiamine 100 mg PO daily * Continue Folic Acid 1 mg PO daily * Continue Multivitamins PO daily * 05/21 ER visit for alcohol abuse/severe intoxication Status: Suspected (3) Change in mental status Assessment & Plan: * Contributing factors: alcohol abuse, seizure, concern for Wernicke-Korsakoff? * Folic acid 1mg PO daily * Multivitamin 1 tab PO daily * Thiamine 100mg PO daily * Completed Ativan taper completed 05/24/17 * Per latest Dr. 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 Multifocal left mandibular and maxillary periodontal and -periapical lucency with retained roots and multifocal dental carious lesions. There is comminuted fracture deformity of the nasal bones. * TSH: 1.21 * Vitamin B12: 407 * RPR: nonreactive * Hepatitis panel: negative * HIV: negative Status: Acute (4) Prophylactic measure Assessment & Plan: * Pepcid 20mg PO Daily * Heparin 5000U SC Q12H * Patient is awaiting guardianship and assisted living; patient states that he has a cousin (Galdino Manning) in [place] however unable to provide a number or address, this information was provided to SW. Will f/u to see if we can get in contact with his family member. Status: Acute No updates at this time. Will DW case with Dr. Wale Orlando PGY-1 <Juliet Echevarria V - Last Filed: 06/03/17 19:45> Objective - Vital Signs/Intake and Output Vital Signs (last 24 hours): Temp Pulse Resp BP Pulse Ox 98 F 71 20 104/66 96 06/03/17 15:00 06/03/17 15:00 06/03/17 15:00 06/03/17 15:00 06/03/17 15:00 - Medications Medications: Current Medications Famotidine (Pepcid) 20 mg PO DAILY [facility] Last Admin: 06/03/17 11:02 Dose: 20 mg Folic Acid (Folic Acid) 1 mg PO DAILY [facility] Last Admin: 06/03/17 11:01 Dose: 1 mg Heparin Sodium (Porcine) (Heparin) 5,000 units SC Q8H [facility] Last Admin: 06/03/17 17:48 Dose: 5,000 units Levetiracetam (Keppra) 1,000 mg PO Q12H [facility] Last Admin: 06/03/17 11:01 Dose: 1,000 mg Lorazepam (Ativan) 1 mg PO Q6H PRN PRN Reason: Seizure activity Multivitamins (Hexavitamin) 1 tab PO DAILY [facility] Last Admin: 06/03/17 11:00 Dose: 1 tab Thiamine HCl (Vitamin B1 Tab) 100 mg PO DAILY [facility] Last Admin: 06/03/17 11:01 Dose: 100 mg - Labs Labs: 05/28/17 11:40 05/28/17 11:40 Attending/Attestation - Attestation I have personally seen and examined this patient.: Yes I have fully participated in the care of the patient.: Yes I have reviewed all pertinent clinical information, including history, physical exam and plan: Yes Notes (Text): Patient seen, examined and case discussed with day-time resident. Patient has not any further episodes in regards to seizures. patient denies acute complaints. Patient remembers he has a cousin in [facility] but cannot remember address and nor phone number. Per psych, patient does not have any capacity to make medical decisions, will need to follow-up with case management and social work in regards to discharge planning. As addendum to resident physical: CN 2-12 grossly intact, negative Babinski sign , strength upper and lower 5/5, speaks in Lao Assessment/Plan (1) Seizure Assessment & Plan: * Neurology (Dr. Lundberg) on board-->help appreciated * Had recommend if stable for 24hour period for discharge and should have follow-up visit as outpatient * Stable, afebrile * Continue to monitor on telemetry * Continue Keppra 1000mg PO Q12H * Ativan 1mg Q6H prn seizure activity * F/U phenytoin level * EEG: abnormal study, persistent slowing superimposed with multiple movement artifact, lead artifact as well as muscle artifact. 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 global parenchymal volume loss * Head CT: No evidence of an acute intracranial hemorrhage, midline shift or mass effect is identified. Multifocal left mandibular and maxillary periodontal and -periapical lucency with retained roots and multifocal dental carious lesions. There is comminuted fracture deformity of the nasal bones. * Physical Therapy, Occupational Therapy ordered * Seizure precautions, aspiration precautions (2) Alcohol intoxication Assessment & Plan: * Ativan taper completed 05/24/17 * No current signs or symptoms of alcohol withdrawal * Continue Thiamine 100 mg PO daily * Continue Folic Acid 1 mg PO daily * Continue Multivitamins PO daily * 05/21 ER visit for alcohol abuse/sever intoxication Status: Suspected (3) Change in mental status Assessment & Plan: * Contributing: alcohol abuse, seizure, concern for Wernicke-Korsakoff? * Folic acid 1mg PO daily * MVI 1 tab PO daily * Thiamine 100mg PO daily * Completed Ativan taper completed 05/24/17 * Per latest Dr. 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 global parenchymal volume loss * Head CT: No evidence of an acute intracranial hemorrhage, midline shift or mass effect is identified. Multifocal left mandibular and maxillary periodontal and -periapical lucency with retained roots and multifocal dental carious lesions. There is comminuted fracture deformity of the nasal bones. * TSH: 1.21 * Vitamin B12: 407 * RPR: nonreactive * Hepatitis panel: negative * HIV: negative (4) Prophylactic measure Assessment & Plan: * Pepcid 20mg PO Daily * Heparin 5000U SC Q12H * F/u with social and case management regarding discharge planning Status: Acute Disposition: Per psych, patient does not have any capacity to make any medical decisions. Will need to follow-up with social and case management in regards to discharge planning.
[2017-06-03] MEDS: Multiple Vitamins Tab PO SCH (11:00)
--- NOTE | 2017-06-04 00:58 | CP.PCM.PN ---
<Max Velásquez - Last Filed: 06/04/17 00:55> Subjective - Date & Time of Evaluation Date of Evaluation: 06/04/17 Time of Evaluation: 00:55 - Subjective Subjective: Patient seen and examined at bedside. No new complaints at this time. Denies any chest pain, SOB, Fever, Chills Objective - Vital Signs/Intake and Output Vital Signs (last 24 hours): Temp Pulse Resp BP Pulse Ox 97.9 F 64 20 107/64 96 06/03/17 23:00 06/03/17 23:00 06/03/17 23:00 06/03/17 23:00 06/03/17 23:00 Intake and Output: 06/03/17 06/04/17 18:59 06:59 Intake Total 500 Balance 500 - Medications Medications: Current Medications Famotidine (Pepcid) 20 mg PO DAILY [facility] Last Admin: 06/03/17 11:02 Dose: 20 mg Folic Acid (Folic Acid) 1 mg PO DAILY [facility] Last Admin: 06/03/17 11:01 Dose: 1 mg Heparin Sodium (Porcine) (Heparin) 5,000 units SC Q8H [facility] Last Admin: 06/03/17 17:48 Dose: 5,000 units Levetiracetam (Keppra) 1,000 mg PO Q12H [facility] Last Admin: 06/03/17 22:02 Dose: 1,000 mg Lorazepam (Ativan) 1 mg PO Q6H PRN PRN Reason: Seizure activity Multivitamins (Hexavitamin) 1 tab PO DAILY [facility] Last Admin: 06/03/17 11:00 Dose: 1 tab Thiamine HCl (Vitamin B1 Tab) 100 mg PO DAILY [facility] Last Admin: 06/03/17 11:01 Dose: 100 mg - Labs Labs: 05/28/17 11:40 05/28/17 11:40 - Additional Findings Additional findings: - Constitutional Appears: No Acute Distress - Head Exam Head Exam: ATRAUMATIC, NORMOCEPHALIC - Eye Exam Eye Exam: EOMI, Normal appearance - ENT Exam ENT Exam: Mucous Membranes Moist - Respiratory Exam Respiratory Exam: Clear to Ausculation Bilateral. absent: Rales, Rhonchi, Wheezes - Cardiovascular Exam Cardiovascular Exam: REGULAR RHYTHM, +S1, +S2 - GI/Abdominal Exam GI & Abdominal Exam: Soft, Normal Bowel Sounds. absent: Guarding, Tenderness - Extremities Exam Extremities Exam: Normal Inspection - Neurological Exam Neurological Exam: Alert, Awake - Skin Skin Exam: Dry, Warm Assessment and Plan - Assessment and Plan (Free Text) Assessment: Seizure * Neurology (Dr. Lundberg) * Had recommend if stable for 24hour period for discharge and should have follow-up visit as outpatient * Stable, afebrile * Will monitor labs work qweekly (sunday) * Continue Keppra 1000mg PO Q12H * Ativan 1mg Q6H prn seizure activity * EEG: abnormal study, persistent slowing superimposed with multiple movement artifact, lead artifact as well as muscle artifact. 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 global parenchymal volume loss * Head CT: No evidence of an acute intracranial hemorrhage, midline shift or mass effect is identified. Multifocal left mandibular and maxillary periodontal and -periapical lucency with retained roots and multifocal dental carious lesions. There is comminuted fracture deformity of the nasal bones. * Patient was evaluated by Physical Therapy, Occupational Therapy * Seizure precautions, aspiration precautions Alcohol intoxication * No current signs or symptoms of alcohol withdrawal * Continue Thiamine 100 mg PO daily * Continue Folic Acid 1 mg PO daily * Continue Multivitamins PO daily Change in mental status * Folic acid 1mg PO daily * Multivitamin 1 tab PO daily * Thiamine 100mg PO daily * Completed Ativan taper completed 05/24/17 * Per latest Dr. 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 Multifocal left mandibular and maxillary periodontal and -periapical lucency with retained roots and multifocal dental carious lesions. There is comminuted fracture deformity of the nasal bones. * TSH: 1.21 * Vitamin B12: 407 * RPR: nonreactive * Hepatitis panel: negative * HIV: negative Prophylactic measure * Pepcid 20mg PO Daily * Heparin 5000U SC Q12H * Patient is awaiting guardianship and assisted living; patient states that he has a cousin (Galdino Manning) in [place] however unable to provide a number or address, this information was provided to SW. Will f/u to see if we can get in contact with his family member. No updates at this time. <Imer Silveira - Last Filed: 06/04/17 20:47> Objective - Vital Signs/Intake and Output Vital Signs (last 24 hours): Temp Pulse Resp BP Pulse Ox 97.7 F 70 20 119/79 97 06/04/17 15:15 06/04/17 15:15 06/04/17 15:15 06/04/17 15:15 06/04/17 15:15 - Medications Medications: Current Medications Famotidine (Pepcid) 20 mg PO DAILY [facility] Last Admin: 06/04/17 10:38 Dose: 20 mg Folic Acid (Folic Acid) 1 mg PO DAILY [facility] Last Admin: 06/04/17 10:38 Dose: 1 mg Heparin Sodium (Porcine) (Heparin) 5,000 units SC Q8 [facility] Levetiracetam (Keppra) 1,000 mg PO Q12H [facility] Last Admin: 06/04/17 10:38 Dose: 1,000 mg Lorazepam (Ativan) 1 mg PO Q6H PRN PRN Reason: Seizure activity Multivitamins (Hexavitamin) 1 tab PO DAILY [facility] Last Admin: 06/04/17 10:38 Dose: 1 tab Thiamine HCl (Vitamin B1 Tab) 100 mg PO DAILY [facility] Last Admin: 06/04/17 10:38 Dose: 100 mg - Labs Labs: 06/04/17 08:15 06/04/17 08:15 Attending/Attestation - Attestation I have personally seen and examined this patient.: Yes I have fully participated in the care of the patient.: Yes I have reviewed all pertinent clinical information, including history, physical exam and plan: Yes Notes (Text): 06/04/17 20:46 Patient was seen and examined at 10:00 AM 06/04/17 670 A Exam, assessment and plan were gone over with the resident. Will speak with SW/Alligator Trapper on 06/05/17 when they return for update on placement. Imer Silveira D.O.
[2017-06-04 08:35] LABS: BASO # 0.1 K/uL (0.0-0.2); BASO % 1.2 % (0.0-2.0); EOS # 0.2 K/uL (0.0-0.7); HEMOGLOBIN 14.6 g/dL (12.0-18.0); LYMPH # 2.1 K/uL (1.0-4.3); LYMPH % 36.2 % (20.0-40.0); MEAN CELL VOLUME 90.4 fL (80.0-94.0); MEAN CORPUSCULAR HEMOGLOBIN 30.2 pg (27.0-31.0); MEAN CORPUSCULAR HGB CONC 33.4 g/dL (33.0-37.0); MEAN PLATELET VOLUME 10.3 fL (7.2-11.7); MONO # 0.4 K/uL (0.0-0.8); MONO % 7.1 % (0.0-10.0); NEUT # 3.1 K/uL (1.8-7.0); NEUT % 52.5 % (50.0-75.0); NRBC % 0.1 % (0.0-2.0); RBC 4.83 Mil/uL (4.40-5.90); RED CELL DISTRIBUTION WIDTH 14.4 % (11.5-14.5); WHITE BLOOD COUNT 5.8 K/uL (4.8-10.8)
[2017-06-04 08:43] LABS: ALB/GLOB RATIO 1.8 (1.0-2.1); ALBUMIN 4.2 g/dL (3.5-5.0); ALT/SGPT 50 U/L (21-72); AST/SGOT 25 U/L (17-59); BLOOD UREA NITROGEN 18 mg/dL (9-20); CALCIUM 8.3 mg/dl (8.6-10.4); GFR AFRICAN-AMERICAN > 60; GFR NON-AFRICAN AMERICAN > 60
[2017-06-04] MEDS: Multiple Vitamins Tab PO SCH (10:38)
--- NOTE | 2017-06-05 07:59 | CP.PCM.PN ---
<Matilda Rebolledo - Last Filed: 06/05/17 10:34> Subjective - Date & Time of Evaluation Date of Evaluation: 06/05/17 Time of Evaluation: 07:58 - Subjective Subjective: Medicine Progress Note: Hospitalist Service Patient seen and examined at bedside. Per nursing no acute events overnight. Patient is doing well, offers no complaints at this time. Denies headaches, dizziness, chest pain, palpitations, sob, abdominal pain, urinary symptoms, changes in bowel habits. Objective - Vital Signs/Intake and Output Vital Signs (last 24 hours): Temp Pulse Resp BP Pulse Ox 98.1 F 69 20 114/65 95 06/04/17 23:30 06/04/17 23:30 06/04/17 23:30 06/04/17 23:30 06/04/17 23:30 - Medications Medications: Current Medications Famotidine (Pepcid) 20 mg PO DAILY [facility] Last Admin: 06/04/17 10:38 Dose: 20 mg Folic Acid (Folic Acid) 1 mg PO DAILY [facility] Last Admin: 06/04/17 10:38 Dose: 1 mg Heparin Sodium (Porcine) (Heparin) 5,000 units SC Q8 [facility] Last Admin: 06/05/17 05:46 Dose: 5,000 units Levetiracetam (Keppra) 1,000 mg PO Q12H [facility] Last Admin: 06/04/17 21:13 Dose: 1,000 mg Lorazepam (Ativan) 1 mg PO Q6H PRN PRN Reason: Seizure activity Multivitamins (Hexavitamin) 1 tab PO DAILY [facility] Last Admin: 06/04/17 10:38 Dose: 1 tab Thiamine HCl (Vitamin B1 Tab) 100 mg PO DAILY [facility] Last Admin: 06/04/17 10:38 Dose: 100 mg - Labs Labs: 06/04/17 08:15 06/04/17 08:15 - Constitutional Appears: Well, No Acute Distress - Head Exam Head Exam: ATRAUMATIC, NORMAL INSPECTION, NORMOCEPHALIC - Eye Exam Eye Exam: EOMI, Normal appearance - ENT Exam ENT Exam: Mucous Membranes Moist - Respiratory Exam Respiratory Exam: Clear to Ausculation Bilateral, NORMAL BREATHING PATTERN. absent: Rales, Rhonchi, Wheezes - Cardiovascular Exam Cardiovascular Exam: REGULAR RHYTHM, +S1, +S2 - GI/Abdominal Exam GI & Abdominal Exam: Soft, Normal Bowel Sounds. absent: Guarding, Rigid, Tenderness - Rectal Exam Rectal Exam: Deferred - Extremities Exam Extremities Exam: Normal Inspection. absent: Calf Tenderness, Pedal Edema - Back Exam Back Exam: NORMAL INSPECTION - Neurological Exam Neurological Exam: Alert, Awake, CN II-XII Intact, Oriented x3 - Psychiatric Exam Psychiatric exam: Normal Affect, Normal Mood - Skin Skin Exam: Dry, Intact, Normal Color, Warm Assessment and Plan (1) Seizure Assessment & Plan: * Neurology (Dr. Lundberg) * Had recommend if stable for 24hour period for discharge and should have follow-up visit as outpatient * Stable, afebrile * No recorded seizures * Will monitor labs work qweekly (mondays) * Continue Keppra 1000mg PO Q12H * Ativan 1mg Q6H prn seizure activity * EEG: abnormal study, persistent slowing superimposed with multiple movement artifact, lead artifact as well as muscle artifact. 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 global parenchymal volume loss * Head CT: No evidence of an acute intracranial hemorrhage, midline shift or mass effect is identified. Multifocal left mandibular and maxillary periodontal and -periapical lucency with retained roots and multifocal dental carious lesions. There is comminuted fracture deformity of the nasal bones. * Patient was evaluated by Physical Therapy, Occupational Therapy * Seizure precautions, aspiration precautions Status: Acute (2) Alcohol intoxication Assessment & Plan: * No current signs or symptoms of alcohol withdrawal * Continue Thiamine 100 mg PO daily * Continue Folic Acid 1 mg PO daily * Continue Multivitamins PO daily Status: Suspected (3) Change in mental status Assessment & Plan: * Folic acid 1mg PO daily * Multivitamin 1 tab PO daily * Thiamine 100mg PO daily * Completed Ativan taper completed 05/24/17 * Per latest Dr. 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 Multifocal left mandibular and maxillary periodontal and -periapical lucency with retained roots and multifocal dental carious lesions. There is comminuted fracture deformity of the nasal bones. * TSH: 1.21 * Vitamin B12: 407 * RPR: nonreactive * Hepatitis panel: negative * HIV: negative Status: Acute (4) Prophylactic measure Assessment & Plan: * Pepcid 20mg PO Daily * Heparin 5000U SC Q8H * Patient is awaiting guardianship and assisted living; patient states that he has a cousin (Galdino Manning) in [place] however unable to provide a number or address, this information was provided to SW. Will f/u to see if we can get in contact with his family member. Status: Acute <Imer Silveira - Last Filed: 06/05/17 19:34> Objective - Vital Signs/Intake and Output Vital Signs (last 24 hours): Temp Pulse Resp BP Pulse Ox 97.8 F 70 20 91/50 L 98 06/05/17 15:13 06/05/17 15:13 06/05/17 15:13 06/05/17 15:13 06/05/17 15:13 - Medications Medications: Current Medications Famotidine (Pepcid) 20 mg PO DAILY [facility] Last Admin: 06/05/17 09:37 Dose: 20 mg Folic Acid (Folic Acid) 1 mg PO DAILY [facility] Last Admin: 06/05/17 09:36 Dose: 1 mg Heparin Sodium (Porcine) (Heparin) 5,000 units SC Q8 [facility] Last Admin: 06/05/17 13:29 Dose: 5,000 units Levetiracetam (Keppra) 1,000 mg PO Q12H [facility] Last Admin: 06/05/17 09:37 Dose: 1,000 mg Lorazepam (Ativan) 1 mg PO Q6H PRN PRN Reason: Seizure activity Multivitamins (Hexavitamin) 1 tab PO DAILY [facility] Last Admin: 06/05/17 09:37 Dose: 1 tab Thiamine HCl (Vitamin B1 Tab) 100 mg PO DAILY [facility] Last Admin: 06/05/17 09:37 Dose: 100 mg - Labs Labs: 06/04/17 08:15 06/04/17 08:15 Attending/Attestation - Attestation I have personally seen and examined this patient.: Yes I have fully participated in the care of the patient.: Yes I have reviewed all pertinent clinical information, including history, physical exam and plan: Yes Notes (Text): 06/05/17 19:31 Patient was seen and examined at 8:15 AM 06/05/17 670 A Exam, assessment and plan were gone over with the resident. Spoke with Vacuum Closing Machine Operator Melanie: Awaiting Director of Case Management to send letter to [facility] Clinical Applications Manager who will then send letter to [facility] to start the process of Guardianship. Imer Silveira D.O.
[2017-06-05] MEDS: Multiple Vitamins Tab PO SCH (09:37)
--- NOTE | 2017-06-06 07:11 | CP.PCM.PN ---
<Matilda Rebolledo - Last Filed: 06/06/17 11:38> Subjective - Date & Time of Evaluation Date of Evaluation: 06/06/17 Time of Evaluation: 07:09 - Subjective Subjective: Medicine Progress Note: Hospitalist Service Patient seen and examined at bedside. Per nursing no acute events overnight. Patient is doing well offers no complaints. Last BM was yesterday. Denies headaches, dizziness, cp, palpitations, sob, abdominal pain, urinary symptoms, changes in bowel habits. Objective - Vital Signs/Intake and Output Vital Signs (last 24 hours): Temp Pulse Resp BP Pulse Ox 97.9 F 67 20 102/63 100 06/05/17 23:50 06/05/17 23:50 06/05/17 23:50 06/05/17 23:50 06/05/17 23:50 Intake and Output: 06/06/17 06/06/17 06:59 18:59 Intake Total 120 Balance 120 - Medications Medications: Current Medications Famotidine (Pepcid) 20 mg PO DAILY [facility] Last Admin: 06/05/17 09:37 Dose: 20 mg Folic Acid (Folic Acid) 1 mg PO DAILY [facility] Last Admin: 06/05/17 09:36 Dose: 1 mg Heparin Sodium (Porcine) (Heparin) 5,000 units SC Q8 [facility] Last Admin: 06/06/17 06:25 Dose: 5,000 units Levetiracetam (Keppra) 1,000 mg PO Q12H [facility] Last Admin: 06/05/17 21:41 Dose: 1,000 mg Lorazepam (Ativan) 1 mg PO Q6H PRN PRN Reason: Seizure activity Multivitamins (Hexavitamin) 1 tab PO DAILY [facility] Last Admin: 06/05/17 09:37 Dose: 1 tab Thiamine HCl (Vitamin B1 Tab) 100 mg PO DAILY [facility] Last Admin: 06/05/17 09:37 Dose: 100 mg - Labs Labs: 06/04/17 08:15 06/04/17 08:15 - Constitutional Appears: Well, No Acute Distress - Head Exam Head Exam: ATRAUMATIC, NORMAL INSPECTION - Eye Exam Eye Exam: EOMI, Normal appearance - ENT Exam ENT Exam: Mucous Membranes Moist - Neck Exam Neck Exam: Full ROM - Respiratory Exam Respiratory Exam: Clear to Ausculation Bilateral, NORMAL BREATHING PATTERN. absent: Rales, Rhonchi, Wheezes - Cardiovascular Exam Cardiovascular Exam: REGULAR RHYTHM, +S1, +S2 - GI/Abdominal Exam GI & Abdominal Exam: Soft, Normal Bowel Sounds. absent: Guarding, Rigid, Tenderness - Extremities Exam Extremities Exam: Normal Inspection. absent: Calf Tenderness - Neurological Exam Neurological Exam: Alert, Awake, CN II-XII Intact, Oriented x3 - Psychiatric Exam Psychiatric exam: Normal Affect, Normal Mood - Skin Skin Exam: Dry, Normal Color, Warm Assessment and Plan (1) Seizure Assessment & Plan: * Neurology (Dr. Lundberg) * Stable, afebrile * No recorded seizures * Will monitor labs work qweekly (mondays) * Continue Keppra 1000mg PO Q12H * Ativan 1mg Q6H prn seizure activity * EEG: abnormal study, persistent slowing superimposed with multiple movement artifact, lead artifact as well as muscle artifact. 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 global parenchymal volume loss * Head CT: No evidence of an acute intracranial hemorrhage, midline shift or mass effect is identified. Multifocal left mandibular and maxillary periodontal and -periapical lucency with retained roots and multifocal dental carious lesions. There is comminuted fracture deformity of the nasal bones. * Patient was evaluated by Physical Therapy, Occupational Therapy * Seizure precautions, aspiration precautions Status: Acute (2) Alcohol intoxication Assessment & Plan: * No current signs or symptoms of alcohol withdrawal * Continue Thiamine 100 mg PO daily * Continue Folic Acid 1 mg PO daily * Continue Multivitamins PO daily Status: Suspected (3) Change in mental status Assessment & Plan: * Folic acid 1mg PO daily * Multivitamin 1 tab PO daily * Thiamine 100mg PO daily * Completed Ativan taper completed 05/24/17 * Per latest Dr. 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 Multifocal left mandibular and maxillary periodontal and -periapical lucency with retained roots and multifocal dental carious lesions. There is comminuted fracture deformity of the nasal bones. * TSH: 1.21 * Vitamin B12: 407 * RPR: nonreactive * Hepatitis panel: negative * HIV: negative Status: Acute (4) Prophylactic measure Assessment & Plan: * Pepcid 20mg PO Daily * Heparin 5000U SC Q8H * Patient is awaiting guardianship and assisted living; patient states that he has a cousin (Galdino Manning) in [place] however unable to provide a number or address, this information was provided to . Will f/u to see if we can get in contact with his family member. * At this time, we are awaiting Director of Case Management to send letter to [facility] Airplane Captain who will then send letter to [facility] to start the process of Guardianship. Status: Acute <Imer Silveira - Last Filed: 06/06/17 17:53> Objective - Vital Signs/Intake and Output Vital Signs (last 24 hours): Temp Pulse Resp BP Pulse Ox 98.0 F 69 20 98/65 L 98 06/06/17 15:10 06/06/17 15:10 06/06/17 15:10 06/06/17 15:10 06/06/17 15:10 Intake and Output: 06/06/17 06/06/17 06:59 18:59 Intake Total 120 Balance 120 - Medications Medications: Current Medications Famotidine (Pepcid) 20 mg PO DAILY [facility] Last Admin: 06/06/17 09:48 Dose: 20 mg Folic Acid (Folic Acid) 1 mg PO DAILY [facility] Last Admin: 06/06/17 09:48 Dose: 1 mg Heparin Sodium (Porcine) (Heparin) 5,000 units SC Q8 [facility] Last Admin: 06/06/17 13:55 Dose: 5,000 units Levetiracetam (Keppra) 1,000 mg PO Q12H [facility] Last Admin: 06/06/17 09:48 Dose: 1,000 mg Lorazepam (Ativan) 1 mg PO Q6H PRN PRN Reason: Seizure activity Multivitamins (Hexavitamin) 1 tab PO DAILY [facility] Last Admin: 06/06/17 09:48 Dose: 1 tab Thiamine HCl (Vitamin B1 Tab) 100 mg PO DAILY [facility] Last Admin: 06/06/17 09:48 Dose: 100 mg - Labs Labs: 06/04/17 08:15 06/04/17 08:15 Attending/Attestation - Attestation I have personally seen and examined this patient.: Yes I have fully participated in the care of the patient.: Yes I have reviewed all pertinent clinical information, including history, physical exam and plan: Yes Notes (Text): 06/06/17 17:53 Patient was seen and examined at 8:35 AM 06/06/17 670 A Exam, assessment and plan were gone over with the resident. As per Pocket Secretary Assembler Melanie: Awaiting Director of Case Management to send letter to [facility] Airplane Captain who will then send letter to [facility] to start the process of Guardianship. Imer Silveira D.O.
[2017-06-06] MEDS: Multiple Vitamins Tab PO SCH (09:48)
--- NOTE | 2017-06-07 07:08 | CP.PCM.PN ---
<Matilda Rebolledo - Last Filed: 06/07/17 10:48> Subjective - Date & Time of Evaluation Date of Evaluation: 06/07/17 Time of Evaluation: 07:07 - Subjective Subjective: Medicine Progress Note: Hospitalist Service Patient seen and examined at bedside. Per nursing, no acute events overnight. Patient is doing well, sitting up and eating breakfast. Offers no complaints at this time. Denies headaches, dizziness, cp, palpitations, sob, abdominal pain, urinary symptoms, changes in bowel habits. Objective - Vital Signs/Intake and Output Vital Signs (last 24 hours): Temp Pulse Resp BP Pulse Ox 98.4 F 62 20 91/60 L 97 06/06/17 23:38 06/06/17 23:38 06/06/17 23:38 06/06/17 23:38 06/06/17 23:38 Intake and Output: 06/07/17 06/07/17 06:59 18:59 Intake Total 240 Balance 240 - Medications Medications: Current Medications Famotidine (Pepcid) 20 mg PO DAILY [facility] Last Admin: 06/06/17 09:48 Dose: 20 mg Folic Acid (Folic Acid) 1 mg PO DAILY [facility] Last Admin: 06/06/17 09:48 Dose: 1 mg Heparin Sodium (Porcine) (Heparin) 5,000 units SC Q8 [facility] Last Admin: 06/07/17 07:00 Dose: 5,000 units Levetiracetam (Keppra) 1,000 mg PO Q12H [facility] Last Admin: 06/06/17 21:41 Dose: 1,000 mg Lorazepam (Ativan) 1 mg PO Q6H PRN PRN Reason: Seizure activity Multivitamins (Hexavitamin) 1 tab PO DAILY [facility] Last Admin: 06/06/17 09:48 Dose: 1 tab Thiamine HCl (Vitamin B1 Tab) 100 mg PO DAILY [facility] Last Admin: 06/06/17 09:48 Dose: 100 mg - Labs Labs: 06/04/17 08:15 06/04/17 08:15 - Constitutional Appears: Well, Non-toxic, No Acute Distress - Head Exam Head Exam: ATRAUMATIC, NORMAL INSPECTION - Eye Exam Eye Exam: EOMI, Normal appearance - ENT Exam ENT Exam: Mucous Membranes Moist - Neck Exam Neck Exam: Full ROM - Respiratory Exam Respiratory Exam: Clear to Ausculation Bilateral, NORMAL BREATHING PATTERN. absent: Rales, Rhonchi, Wheezes - Cardiovascular Exam Cardiovascular Exam: REGULAR RHYTHM, +S1, +S2 - GI/Abdominal Exam GI & Abdominal Exam: Soft, Normal Bowel Sounds. absent: Firm, Guarding, Rigid, Tenderness - Extremities Exam Extremities Exam: Full ROM, Normal Capillary Refill, Normal Inspection. absent : Calf Tenderness - Back Exam Back Exam: NORMAL INSPECTION - Neurological Exam Neurological Exam: Alert, Awake, CN II-XII Intact, Normal Gait, Oriented x3 - Psychiatric Exam Psychiatric exam: Normal Affect, Normal Mood - Skin Skin Exam: Dry, Normal Color, Warm Assessment and Plan (1) Seizure Assessment & Plan: * Neurology (Dr. Lundberg) * Stable, afebrile * No recorded seizures * Will monitor labs work qweekly (mondays) * Continue Keppra 1000mg PO Q12H * Ativan 1mg Q6H prn seizure activity * EEG: abnormal study, persistent slowing superimposed with multiple movement artifact, lead artifact as well as muscle artifact. 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 global parenchymal volume loss * Head CT: No evidence of an acute intracranial hemorrhage, midline shift or mass effect is identified. Multifocal left mandibular and maxillary periodontal and -periapical lucency with retained roots and multifocal dental carious lesions. There is comminuted fracture deformity of the nasal bones. * Patient was evaluated by Physical Therapy, Occupational Therapy * Seizure precautions, aspiration precautions Status: Acute (2) Alcohol intoxication Assessment & Plan: * No current signs or symptoms of alcohol withdrawal * Continue Thiamine 100 mg PO daily * Continue Folic Acid 1 mg PO daily * Continue Multivitamins PO daily Status: Suspected (3) Change in mental status Assessment & Plan: * Folic acid 1mg PO daily * Multivitamin 1 tab PO daily * Thiamine 100mg PO daily * Completed Ativan taper completed 05/24/17 * Per latest Dr. 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 Multifocal left mandibular and maxillary periodontal and -periapical lucency with retained roots and multifocal dental carious lesions. There is comminuted fracture deformity of the nasal bones. * TSH: 1.21 * Vitamin B12: 407 * RPR: nonreactive * Hepatitis panel: negative * HIV: negative Status: Acute (4) Prophylactic measure Assessment & Plan: * Pepcid 20mg PO Daily * Heparin 5000U SC Q8H * Patient is awaiting guardianship and assisted living; patient states that he has a cousin (Galdino Manning) in [place] however unable to provide a number or address, this information was provided to . Will f/u to see if we can get in contact with his family member. * At this time, we are awaiting Director of Case Management to send letter to [facility] [employer] who will then send letter to [facility] to start the process of Guardianship. Status: Acute <Imer Silveira - Last Filed: 06/07/17 14:58> Objective - Vital Signs/Intake and Output Vital Signs (last 24 hours): Temp Pulse Resp BP Pulse Ox 97.7 F 53 L 20 99/63 L 97 06/07/17 08:40 06/07/17 08:40 06/07/17 08:40 06/07/17 08:40 06/07/17 08:40 Intake and Output: 06/07/17 06/07/17 06:59 18:59 Intake Total 240 600 Balance 240 600 - Medications Medications: Current Medications Famotidine (Pepcid) 20 mg PO DAILY [facility] Last Admin: 06/07/17 09:54 Dose: 20 mg Folic Acid (Folic Acid) 1 mg PO DAILY [facility] Last Admin: 06/07/17 09:54 Dose: 1 mg Heparin Sodium (Porcine) (Heparin) 5,000 units SC Q8 [facility] Last Admin: 06/07/17 14:35 Dose: 5,000 units Levetiracetam (Keppra) 1,000 mg PO Q12H [facility] Last Admin: 06/07/17 09:54 Dose: 1,000 mg Lorazepam (Ativan) 1 mg PO Q6H PRN PRN Reason: Seizure activity Multivitamins (Hexavitamin) 1 tab PO DAILY [facility] Last Admin: 06/07/17 09:54 Dose: 1 tab Thiamine HCl (Vitamin B1 Tab) 100 mg PO DAILY [facility] Last Admin: 06/07/17 09:54 Dose: 100 mg - Labs Labs: 06/04/17 08:15 06/04/17 08:15 Attending/Attestation - Attestation I have personally seen and examined this patient.: Yes I have fully participated in the care of the patient.: Yes I have reviewed all pertinent clinical information, including history, physical exam and plan: Yes Notes (Text): 06/07/17 14:58 Patient was seen and examined at 8:35 AM 06/07/17 670 A Exam, assessment and plan were gone over with the resident. As per Buildings And Grounds Director Melanie: Awaiting Director of Case Management to send letter to [facility] [employer] who will then send letter to [facility] to start the process of Guardianship. Imer Silveira D.O.
[2017-06-07] MEDS: Multiple Vitamins Tab PO SCH (09:54)
--- NOTE | 2017-06-08 08:36 | CP.PCM.PN ---
<Matilda Rebolledo - Last Filed: 06/08/17 14:49> Subjective - Date & Time of Evaluation Date of Evaluation: 06/08/17 Time of Evaluation: 08:34 - Subjective Subjective: Medicine Progress Note: Hospitalist Service Patient seen and examined at bedside. Per nursing no acute events overnight. Patient is doing well, offers no complaints at this time. Denies headaches, dizziness, cp, palpitations, sob, abdominal pain, urinary symptoms, changes in bowel habits. Objective - Vital Signs/Intake and Output Vital Signs (last 24 hours): Temp Pulse Resp BP Pulse Ox 97.4 F L 59 L 20 94/59 L 100 06/08/17 07:00 06/08/17 07:00 06/08/17 07:00 06/08/17 07:00 06/08/17 07:00 - Medications Medications: Current Medications Famotidine (Pepcid) 20 mg PO DAILY [facility] Last Admin: 06/07/17 09:54 Dose: 20 mg Folic Acid (Folic Acid) 1 mg PO DAILY [facility] Last Admin: 06/07/17 09:54 Dose: 1 mg Heparin Sodium (Porcine) (Heparin) 5,000 units SC Q8 [facility] Last Admin: 06/08/17 06:54 Dose: 5,000 units Levetiracetam (Keppra) 1,000 mg PO Q12H [facility] Last Admin: 06/07/17 22:07 Dose: 1,000 mg Lorazepam (Ativan) 1 mg PO Q6H PRN PRN Reason: Seizure activity Multivitamins (Hexavitamin) 1 tab PO DAILY [facility] Last Admin: 06/07/17 09:54 Dose: 1 tab Thiamine HCl (Vitamin B1 Tab) 100 mg PO DAILY [facility] Last Admin: 06/07/17 09:54 Dose: 100 mg - Labs Labs: 06/04/17 08:15 06/04/17 08:15 - Constitutional Appears: Well, No Acute Distress - Head Exam Head Exam: ATRAUMATIC, NORMAL INSPECTION, NORMOCEPHALIC - Eye Exam Eye Exam: EOMI, Normal appearance - ENT Exam ENT Exam: Mucous Membranes Moist - Respiratory Exam Respiratory Exam: Clear to Ausculation Bilateral, NORMAL BREATHING PATTERN. absent: Rales, Rhonchi, Wheezes - Cardiovascular Exam Cardiovascular Exam: REGULAR RHYTHM, +S1, +S2 - GI/Abdominal Exam GI & Abdominal Exam: Soft, Normal Bowel Sounds. absent: Firm, Guarding, Rigid, Tenderness - Extremities Exam Extremities Exam: Normal Inspection. absent: Calf Tenderness - Back Exam Back Exam: NORMAL INSPECTION - Neurological Exam Neurological Exam: Alert, Awake, CN II-XII Intact, Oriented x3 - Psychiatric Exam Psychiatric exam: Normal Affect, Normal Mood - Skin Skin Exam: Dry, Normal Color, Warm Assessment and Plan (1) Seizure Assessment & Plan: * Neurology (Dr. Lundberg) * Stable, afebrile * No recorded seizures * Will monitor labs work qweekly (mondays) * Continue Keppra 1000mg PO Q12H * Ativan 1mg Q6H prn seizure activity * EEG: abnormal study, persistent slowing superimposed with multiple movement artifact, lead artifact as well as muscle artifact. 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 global parenchymal volume loss * Head CT: No evidence of an acute intracranial hemorrhage, midline shift or mass effect is identified. Multifocal left mandibular and maxillary periodontal and -periapical lucency with retained roots and multifocal dental carious lesions. There is comminuted fracture deformity of the nasal bones. * Patient was evaluated by Physical Therapy, Occupational Therapy * Seizure precautions, aspiration precautions Status: Acute (2) Alcohol intoxication Assessment & Plan: * No current signs or symptoms of alcohol withdrawal * Continue Thiamine 100 mg PO daily * Continue Folic Acid 1 mg PO daily * Continue Multivitamins PO daily Status: Suspected (3) Change in mental status Assessment & Plan: * Folic acid 1mg PO daily * Multivitamin 1 tab PO daily * Thiamine 100mg PO daily * Completed Ativan taper completed 05/24/17 * Per latest Dr. 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 Multifocal left mandibular and maxillary periodontal and -periapical lucency with retained roots and multifocal dental carious lesions. There is comminuted fracture deformity of the nasal bones. * TSH: 1.21 * Vitamin B12: 407 * RPR: nonreactive * Hepatitis panel: negative * HIV: negative Status: Acute (4) Prophylactic measure Assessment & Plan: * Pepcid 20mg PO Daily * Heparin 5000U SC Q8H * Patient is awaiting guardianship and assisted living; patient states that he has a cousin (Galdino Manning) in [place] however unable to provide a number or address, this information was provided to . Will f/u to see if we can get in contact with his family member. * At this time, we are awaiting Director of Case Management to send letter to [facility] Bobbin Doffer who will then send letter to [facility] to start the process of Guardianship. Status: Acute <Imer Silveira - Last Filed: 06/08/17 18:04> Objective - Vital Signs/Intake and Output Vital Signs (last 24 hours): Temp Pulse Resp BP Pulse Ox 97.4 F L 59 L 20 94/59 L 100 06/08/17 07:00 06/08/17 07:00 06/08/17 07:00 06/08/17 07:00 06/08/17 07:00 Intake and Output: 06/08/17 06/08/17 06:59 18:59 Intake Total 520 Output Total 250 Balance 270 - Medications Medications: Current Medications Famotidine (Pepcid) 20 mg PO DAILY [facility] Last Admin: 06/08/17 10:20 Dose: 20 mg Folic Acid (Folic Acid) 1 mg PO DAILY [facility] Last Admin: 06/08/17 10:20 Dose: 1 mg Heparin Sodium (Porcine) (Heparin) 5,000 units SC Q8 [facility] Last Admin: 06/08/17 13:42 Dose: 5,000 units Levetiracetam (Keppra) 1,000 mg PO Q12H [facility] Last Admin: 06/08/17 10:20 Dose: 1,000 mg Lorazepam (Ativan) 1 mg PO Q6H PRN PRN Reason: Seizure activity Multivitamins (Hexavitamin) 1 tab PO DAILY [facility] Last Admin: 06/08/17 10:20 Dose: 1 tab Thiamine HCl (Vitamin B1 Tab) 100 mg PO DAILY [facility] Last Admin: 06/08/17 10:24 Dose: 100 mg - Labs Labs: 06/04/17 08:15 06/04/17 08:15 Attending/Attestation - Attestation I have personally seen and examined this patient.: Yes I have fully participated in the care of the patient.: Yes I have reviewed all pertinent clinical information, including history, physical exam and plan: Yes Notes (Text): 06/08/17 18:04 Patient was seen and examined at 3:00 PM 06/08/17 670 A Exam, assessment and plan were gone over with the resident. As per Operational Meteorologist Melanie: Awaiting Director of Case Management to send letter to [facility] Bobbin Doffer who will then send letter to [facility] to start the process of Guardianship. Imer Silveira D.O.
[2017-06-08] MEDS: Multiple Vitamins Tab PO SCH (10:20)
[2017-06-08] MEDS ORDERED: Lidocaine 4% (Laryng-O-Jet) Kit MM ONE (12:45)
--- NOTE | 2017-06-09 01:22 | CP.PCM.PN ---
<MicheletLorne schroeder Roz - Last Filed: 06/09/17 01:21> Subjective - Date & Time of Evaluation Date of Evaluation: 06/09/17 Time of Evaluation: 01:21 - Subjective Subjective: Medicine Progress Note: Hospitalist Service Patient seen and examined at bedside. Per nursing no acute events overnight. Patient is doing well, offers no complaints at this time. Denies headaches, dizziness, cp, palpitations, sob, abdominal pain, urinary symptoms, changes in bowel habits. Objective - Vital Signs/Intake and Output Vital Signs (last 24 hours): Temp Pulse Resp BP Pulse Ox 98 F 63 20 100/61 98 06/08/17 15:00 06/08/17 15:00 06/08/17 15:00 06/08/17 15:00 06/08/17 15:00 Intake and Output: 06/08/17 06/09/17 18:59 06:59 Intake Total 520 Output Total 250 Balance 270 - Medications Medications: Current Medications Famotidine (Pepcid) 20 mg PO DAILY [facility] Last Admin: 06/08/17 10:20 Dose: 20 mg Folic Acid (Folic Acid) 1 mg PO DAILY [facility] Last Admin: 06/08/17 10:20 Dose: 1 mg Heparin Sodium (Porcine) (Heparin) 5,000 units SC Q8 [facility] Last Admin: 06/08/17 22:20 Dose: 5,000 units Levetiracetam (Keppra) 1,000 mg PO Q12H [facility] Last Admin: 06/08/17 22:21 Dose: 1,000 mg Lorazepam (Ativan) 1 mg PO Q6H PRN PRN Reason: Seizure activity Multivitamins (Hexavitamin) 1 tab PO DAILY [facility] Last Admin: 06/08/17 10:20 Dose: 1 tab Thiamine HCl (Vitamin B1 Tab) 100 mg PO DAILY [facility] Last Admin: 06/08/17 10:24 Dose: 100 mg - Labs Labs: 06/04/17 08:15 06/04/17 08:15 - Additional Findings Additional findings: - Constitutional Appears: Well, No Acute Distress - Head Exam Head Exam: ATRAUMATIC, NORMAL INSPECTION, NORMOCEPHALIC - Eye Exam Eye Exam: EOMI, Normal appearance - ENT Exam ENT Exam: Mucous Membranes Moist - Respiratory Exam Respiratory Exam: Clear to Ausculation Bilateral, NORMAL BREATHING PATTERN. absent: Rales, Rhonchi, Wheezes - Cardiovascular Exam Cardiovascular Exam: REGULAR RHYTHM, +S1, +S2 - GI/Abdominal Exam GI & Abdominal Exam: Soft, Normal Bowel Sounds. absent: Firm, Guarding, Rigid, Tenderness - Extremities Exam Extremities Exam: Normal Inspection. absent: Calf Tenderness - Back Exam Back Exam: NORMAL INSPECTION - Neurological Exam Neurological Exam: Alert, Awake, CN II-XII Intact, Oriented x3 - Psychiatric Exam Psychiatric exam: Normal Affect, Normal Mood - Skin Skin Exam: Dry, Normal Color, Warm Assessment and Plan - Assessment and Plan (Free Text) Assessment: (1) Seizure Assessment & Plan: * Neurology (Dr. Lundberg) * Stable, afebrile * No recorded seizures * Will monitor labs work qweekly (mondays) * Continue Keppra 1000mg PO Q12H * Ativan 1mg Q6H prn seizure activity * EEG: abnormal study, persistent slowing superimposed with multiple movement artifact, lead artifact as well as muscle artifact. 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 global parenchymal volume loss * Head CT: No evidence of an acute intracranial hemorrhage, midline shift or mass effect is identified. Multifocal left mandibular and maxillary periodontal and -periapical lucency with retained roots and multifocal dental carious lesions. There is comminuted fracture deformity of the nasal bones. * Patient was evaluated by Physical Therapy, Occupational Therapy * Seizure precautions, aspiration precautions Status: Acute (2) Alcohol intoxication Assessment & Plan: * No current signs or symptoms of alcohol withdrawal * Continue Thiamine 100 mg PO daily * Continue Folic Acid 1 mg PO daily * Continue Multivitamins PO daily Status: Suspected (3) Change in mental status Assessment & Plan: * Folic acid 1mg PO daily * Multivitamin 1 tab PO daily * Thiamine 100mg PO daily * Completed Ativan taper completed 05/24/17 * Per latest Dr. 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 Multifocal left mandibular and maxillary periodontal and -periapical lucency with retained roots and multifocal dental carious lesions. There is comminuted fracture deformity of the nasal bones. * TSH: 1.21 * Vitamin B12: 407 * RPR: nonreactive * Hepatitis panel: negative * HIV: negative Status: Acute (4) Prophylactic measure Assessment & Plan: * Pepcid 20mg PO Daily * Heparin 5000U SC Q8H * Patient is awaiting guardianship and assisted living; patient states that he has a cousin (Galdino Manning) in [place] however unable to provide a number or address, this information was provided to . Will f/u to see if we can get in contact with his family member. * At this time, we are awaiting Director of Case Management to send letter to [facility] [employer] who will then send letter to [facility] to start the process of Guardianship. Status: Acute <Imer Silveira - Last Filed: 06/09/17 18:35> Objective - Vital Signs/Intake and Output Vital Signs (last 24 hours): Temp Pulse Resp BP Pulse Ox 98.1 F 86 20 123/84 97 06/09/17 15:23 06/09/17 15:23 06/09/17 15:23 06/09/17 15:23 06/09/17 15:23 Intake and Output: 06/09/17 06/09/17 06:59 18:59 Intake Total 120 Output Total 300 Balance -180 - Medications Medications: Current Medications Famotidine (Pepcid) 20 mg PO DAILY [facility] Last Admin: 06/09/17 09:12 Dose: 20 mg Folic Acid (Folic Acid) 1 mg PO DAILY [facility] Last Admin: 06/09/17 09:12 Dose: 1 mg Heparin Sodium (Porcine) (Heparin) 5,000 units SC Q8 [facility] Last Admin: 06/09/17 14:27 Dose: 5,000 units Levetiracetam (Keppra) 1,000 mg PO Q12H [facility] Last Admin: 06/09/17 09:10 Dose: 1,000 mg Lorazepam (Ativan) 1 mg PO Q6H PRN PRN Reason: Seizure activity Multivitamins (Hexavitamin) 1 tab PO DAILY [facility] Last Admin: 06/09/17 09:11 Dose: 1 tab Thiamine HCl (Vitamin B1 Tab) 100 mg PO DAILY [facility] Last Admin: 06/09/17 12:00 Dose: 100 mg - Labs Labs: 06/04/17 08:15 06/04/17 08:15 Attending/Attestation - Attestation I have personally seen and examined this patient.: Yes I have fully participated in the care of the patient.: Yes I have reviewed all pertinent clinical information, including history, physical exam and plan: Yes Notes (Text): 06/09/17 18:35 Patient was seen and examined at 4 PM 06/09/17 670 A Exam, assessment and plan were gone over with the resident. As per Cover Marker Melanie: Awaiting Director of Case Management to send letter to [facility] [employer] who will then send letter to [facility] to start the process of Guardianship. Imer Silveira D.O.
[2017-06-09] MEDS: Multiple Vitamins Tab PO SCH (09:11)
--- NOTE | 2017-06-10 00:46 | CP.PCM.PN ---
<MicheletLorne schroeder Roz - Last Filed: 06/10/17 00:45> Subjective - Date & Time of Evaluation Date of Evaluation: 06/10/17 Time of Evaluation: 00:45 - Subjective Subjective: Medicine Progress Note: Hospitalist Service Patient seen and examined at bedside. Per nursing no acute events overnight. Patient is doing well, offers no complaints at this time. Denies headaches, dizziness, cp, palpitations, sob, abdominal pain, urinary symptoms, changes in bowel habits. Objective - Vital Signs/Intake and Output Vital Signs (last 24 hours): Temp Pulse Resp BP Pulse Ox 98.1 F 86 20 123/84 97 06/09/17 15:23 06/09/17 15:23 06/09/17 15:23 06/09/17 15:23 06/09/17 15:23 - Medications Medications: Current Medications Famotidine (Pepcid) 20 mg PO DAILY [facility] Last Admin: 06/09/17 09:12 Dose: 20 mg Folic Acid (Folic Acid) 1 mg PO DAILY [facility] Last Admin: 06/09/17 09:12 Dose: 1 mg Heparin Sodium (Porcine) (Heparin) 5,000 units SC Q8 [facility] Last Admin: 06/09/17 21:21 Dose: 5,000 units Levetiracetam (Keppra) 1,000 mg PO Q12H [facility] Last Admin: 06/09/17 21:22 Dose: 1,000 mg Lorazepam (Ativan) 1 mg PO Q6H PRN PRN Reason: Seizure activity Multivitamins (Hexavitamin) 1 tab PO DAILY [facility] Last Admin: 06/09/17 09:11 Dose: 1 tab Thiamine HCl (Vitamin B1 Tab) 100 mg PO DAILY [facility] Last Admin: 06/09/17 12:00 Dose: 100 mg - Labs Labs: 06/04/17 08:15 06/04/17 08:15 - Additional Findings Additional findings: - Constitutional Appears: Well, No Acute Distress - Head Exam Head Exam: ATRAUMATIC, NORMAL INSPECTION, NORMOCEPHALIC - Eye Exam Eye Exam: EOMI, Normal appearance - ENT Exam ENT Exam: Mucous Membranes Moist - Respiratory Exam Respiratory Exam: Clear to Ausculation Bilateral, NORMAL BREATHING PATTERN. absent: Rales, Rhonchi, Wheezes - Cardiovascular Exam Cardiovascular Exam: REGULAR RHYTHM, +S1, +S2 - GI/Abdominal Exam GI & Abdominal Exam: Soft, Normal Bowel Sounds. absent: Firm, Guarding, Rigid, Tenderness - Extremities Exam Extremities Exam: Normal Inspection. absent: Calf Tenderness - Back Exam Back Exam: NORMAL INSPECTION - Neurological Exam Neurological Exam: Alert, Awake, CN II-XII Intact, Oriented x3 - Psychiatric Exam Psychiatric exam: Normal Affect, Normal Mood - Skin Skin Exam: Dry, Normal Color, Warm Assessment and Plan - Assessment and Plan (Free Text) Assessment: (1) Seizure Assessment & Plan: * Neurology (Dr. Lundberg) * Stable, afebrile * No recorded seizures * Will monitor labs work qweekly (mondays) * Continue Keppra 1000mg PO Q12H * Ativan 1mg Q6H prn seizure activity * EEG: abnormal study, persistent slowing superimposed with multiple movement artifact, lead artifact as well as muscle artifact. 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 global parenchymal volume loss * Head CT: No evidence of an acute intracranial hemorrhage, midline shift or mass effect is identified. Multifocal left mandibular and maxillary periodontal and -periapical lucency with retained roots and multifocal dental carious lesions. There is comminuted fracture deformity of the nasal bones. * Patient was evaluated by Physical Therapy, Occupational Therapy * Seizure precautions, aspiration precautions Status: Acute (2) Alcohol intoxication Assessment & Plan: * No current signs or symptoms of alcohol withdrawal * Continue Thiamine 100 mg PO daily * Continue Folic Acid 1 mg PO daily * Continue Multivitamins PO daily Status: Suspected (3) Change in mental status Assessment & Plan: * Folic acid 1mg PO daily * Multivitamin 1 tab PO daily * Thiamine 100mg PO daily * Completed Ativan taper completed 05/24/17 * Per latest Dr. 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 Multifocal left mandibular and maxillary periodontal and -periapical lucency with retained roots and multifocal dental carious lesions. There is comminuted fracture deformity of the nasal bones. * TSH: 1.21 * Vitamin B12: 407 * RPR: nonreactive * Hepatitis panel: negative * HIV: negative Status: Acute (4) Prophylactic measure Assessment & Plan: * Pepcid 20mg PO Daily * Heparin 5000U SC Q8H * Patient is awaiting guardianship and assisted living; patient states that he has a cousin (Galdino Manning) in [place] however unable to provide a number or address, this information was provided to . Will f/u to see if we can get in contact with his family member. * At this time, we are awaiting Director of Case Management to send letter to [facility] [employer] who will then send letter to [facility] to start the process of Guardianship. Status: Acute <Imer Silveira - Last Filed: 06/10/17 20:14> Objective - Vital Signs/Intake and Output Vital Signs (last 24 hours): Temp Pulse Resp BP Pulse Ox 97.9 F 71 20 108/76 99 06/10/17 15:14 06/10/17 15:14 06/10/17 15:14 06/10/17 15:14 06/10/17 15:14 Intake and Output: 06/10/17 06/11/17 18:59 06:59 Intake Total 350 Balance 350 - Medications Medications: Current Medications Famotidine (Pepcid) 20 mg PO DAILY [facility] Last Admin: 06/10/17 09:54 Dose: 20 mg Folic Acid (Folic Acid) 1 mg PO DAILY [facility] Last Admin: 06/10/17 09:54 Dose: 1 mg Heparin Sodium (Porcine) (Heparin) 5,000 units SC Q8 [facility] Last Admin: 06/10/17 13:51 Dose: 5,000 units Levetiracetam (Keppra) 1,000 mg PO Q12H [facility] Last Admin: 06/10/17 09:54 Dose: 1,000 mg Lorazepam (Ativan) 1 mg PO Q6H PRN PRN Reason: Seizure activity Multivitamins (Hexavitamin) 1 tab PO DAILY [facility] Last Admin: 06/10/17 09:54 Dose: 1 tab Thiamine HCl (Vitamin B1 Tab) 100 mg PO DAILY [facility] Last Admin: 06/10/17 10:01 Dose: 100 mg - Labs Labs: 06/04/17 08:15 06/04/17 08:15 Attending/Attestation - Attestation I have personally seen and examined this patient.: Yes I have fully participated in the care of the patient.: Yes I have reviewed all pertinent clinical information, including history, physical exam and plan: Yes Notes (Text): 06/10/17 20:14 Patient was seen and examined at 3:15 PM 06/10/17 670 A Exam, assessment and plan were gone over with the resident. As per Manager Laundry Melanie: Awaiting Director of Case Management to send letter to [facility] [employer] who will then send letter to [facility] to start the process of Guardianship. Imer Silveira D.O.
[2017-06-10] MEDS: Multiple Vitamins Tab PO SCH (09:54)
--- NOTE | 2017-06-11 03:03 | CP.PCM.PN ---
<Milan Orlando - Last Filed: 06/11/17 07:00> Subjective - Date & Time of Evaluation Date of Evaluation: 06/11/17 Time of Evaluation: 06:40 - Subjective Subjective: Medicine progress note for Dr. Bernardo Patient seen and examined at bedside. No acute complaints at this time. Objective - Vital Signs/Intake and Output Vital Signs (last 24 hours): Temp Pulse Resp BP Pulse Ox 98.2 F 68 20 96/55 L 100 06/10/17 23:45 06/10/17 23:45 06/10/17 23:45 06/10/17 23:45 06/10/17 23:45 Intake and Output: 06/10/17 06/11/17 18:59 06:59 Intake Total 350 Balance 350 - Medications Medications: Current Medications Famotidine (Pepcid) 20 mg PO DAILY [facility] Last Admin: 06/10/17 09:54 Dose: 20 mg Folic Acid (Folic Acid) 1 mg PO DAILY [facility] Last Admin: 06/10/17 09:54 Dose: 1 mg Heparin Sodium (Porcine) (Heparin) 5,000 units SC Q8 [facility] Last Admin: 06/10/17 22:46 Dose: 5,000 units Levetiracetam (Keppra) 1,000 mg PO Q12H [facility] Last Admin: 06/10/17 22:47 Dose: 1,000 mg Lorazepam (Ativan) 1 mg PO Q6H PRN PRN Reason: Seizure activity Multivitamins (Hexavitamin) 1 tab PO DAILY [facility] Last Admin: 06/10/17 09:54 Dose: 1 tab Thiamine HCl (Vitamin B1 Tab) 100 mg PO DAILY [facility] Last Admin: 06/10/17 10:01 Dose: 100 mg - Labs Labs: 06/04/17 08:15 06/04/17 08:15 - Head Exam Head Exam: ATRAUMATIC, NORMOCEPHALIC - Eye Exam Eye Exam: EOMI, Normal appearance - ENT Exam ENT Exam: Mucous Membranes Moist - Respiratory Exam Respiratory Exam: Clear to Ausculation Bilateral, NORMAL BREATHING PATTERN. absent: Rales, Rhonchi, Wheezes - Cardiovascular Exam Cardiovascular Exam: REGULAR RHYTHM, +S1, +S2 - GI/Abdominal Exam GI & Abdominal Exam: Soft, Normal Bowel Sounds. absent: Distended, Tenderness - Extremities Exam Extremities Exam: absent: Tenderness - Neurological Exam Neurological Exam: Alert, Awake - Psychiatric Exam Psychiatric exam: Normal Affect, Normal Mood - Skin Skin Exam: Dry, Intact, Normal Color, Warm Assessment and Plan - Assessment and Plan (Free Text) Plan: (1) Seizure Assessment & Plan: * Neurology (Dr. Lundberg) * Stable, afebrile * No recorded seizures * Will monitor labs work qweekly (mondays) * Continue Keppra 1000mg PO Q12H * Ativan 1mg Q6H prn seizure activity * EEG: abnormal study, persistent slowing superimposed with multiple movement artifact, lead artifact as well as muscle artifact. 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 global parenchymal volume loss * Head CT: No evidence of an acute intracranial hemorrhage, midline shift or mass effect is identified. Multifocal left mandibular and maxillary periodontal and -periapical lucency with retained roots and multifocal dental carious lesions. There is comminuted fracture deformity of the nasal bones. * Patient was evaluated by Physical Therapy, Occupational Therapy * Seizure precautions, aspiration precautions Status: Acute (2) Alcohol intoxication Assessment & Plan: * No current signs or symptoms of alcohol withdrawal * Continue Thiamine 100 mg PO daily * Continue Folic Acid 1 mg PO daily * Continue Multivitamins PO daily Status: Suspected (3) Change in mental status Assessment & Plan: * Folic acid 1mg PO daily * Multivitamin 1 tab PO daily * Thiamine 100mg PO daily * Completed Ativan taper completed 05/24/17 * Per latest Dr. 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 Multifocal left mandibular and maxillary periodontal and -periapical lucency with retained roots and multifocal dental carious lesions. There is comminuted fracture deformity of the nasal bones. * TSH: 1.21 * Vitamin B12: 407 * RPR: nonreactive * Hepatitis panel: negative * HIV: negative Status: Acute (4) Prophylactic measure Assessment & Plan: * Pepcid 20mg PO Daily * Heparin 5000U SC Q8H * Patient is awaiting guardianship and assisted living; patient states that he has a cousin (Galdino Manning) in [place] however unable to provide a number or address, this information was provided to . Will f/u to see if we can get in contact with his family member. * At this time, we are awaiting Director of Case Management to send letter to [facility] [employer] who will then send letter to [facility] to start the process of Guardianship. Status: Acute Will DW Dr. Tova Orlando PGY-1 <Demarcus Bernardo - Last Filed: 06/11/17 18:59> Objective - Vital Signs/Intake and Output Vital Signs (last 24 hours): Temp Pulse Resp BP Pulse Ox 98.0 F 84 18 102/66 99 06/11/17 15:00 06/11/17 15:00 06/11/17 15:00 06/11/17 15:00 06/11/17 15:00 Intake and Output: 06/11/17 06/11/17 06:59 18:59 Intake Total 240 Output Total 900 Balance -660 - Medications Medications: Current Medications Famotidine (Pepcid) 20 mg PO DAILY [facility] Last Admin: 06/11/17 10:00 Dose: 20 mg Folic Acid (Folic Acid) 1 mg PO DAILY [facility] Last Admin: 06/11/17 10:00 Dose: 1 mg Heparin Sodium (Porcine) (Heparin) 5,000 units SC Q8 [facility] Last Admin: 06/11/17 14:00 Dose: 5,000 units Levetiracetam (Keppra) 1,000 mg PO Q12H [facility] Last Admin: 06/11/17 10:02 Dose: 1,000 mg Lorazepam (Ativan) 1 mg PO Q6H PRN PRN Reason: Seizure activity Multivitamins (Hexavitamin) 1 tab PO DAILY [facility] Last Admin: 06/11/17 10:02 Dose: 1 tab Thiamine HCl (Vitamin B1 Tab) 100 mg PO DAILY [facility] Last Admin: 06/11/17 10:02 Dose: 100 mg - Labs Labs: 06/11/17 07:13 06/11/17 07:13 Attending/Attestation - Attestation I have personally seen and examined this patient.: Yes I have fully participated in the care of the patient.: Yes I have reviewed all pertinent clinical information, including history, physical exam and plan: Yes Notes (Text): Seen and examined I agree with the assessment and the plan of the resident 06/11/17 18:59
[2017-06-11 07:36] LABS: BASO # 0.1 K/uL (0.0-0.2); BASO % 1.1 % (0.0-2.0); EOS # 0.1 K/uL (0.0-0.7); EOS % 2.7 % (0.0-4.0); HEMOGLOBIN 14.4 g/dL (12.0-18.0); LYMPH % 42.2 % (20.0-40.0); MEAN CELL VOLUME 91.2 fL (80.0-94.0); MEAN CORPUSCULAR HEMOGLOBIN 30.9 pg (27.0-31.0); MEAN CORPUSCULAR HGB CONC 33.9 g/dL (33.0-37.0); MEAN PLATELET VOLUME 10.8 fL (7.2-11.7); MONO # 0.4 K/uL (0.0-0.8); MONO % 8.3 % (0.0-10.0); NEUT # 2.2 K/uL (1.8-7.0); NEUT % 45.7 % (50.0-75.0); NRBC % 0.2 % (0.0-2.0); RBC 4.66 Mil/uL (4.40-5.90); RED CELL DISTRIBUTION WIDTH 14.4 % (11.5-14.5); WHITE BLOOD COUNT 4.8 K/uL (4.8-10.8)
[2017-06-11 08:17] LABS: ALB/GLOB RATIO 1.5 (1.0-2.1); ALT/SGPT 33 U/L (21-72); AST/SGOT 18 U/L (17-59); BLOOD UREA NITROGEN 21 mg/dL (9-20); GFR AFRICAN-AMERICAN > 60; GFR NON-AFRICAN AMERICAN > 60
[2017-06-11] MEDS: Multiple Vitamins Tab PO SCH (10:02)
--- NOTE | 2017-06-12 09:14 | CP.PCM.PN ---
<Matilda Rebolledo - Last Filed: 06/12/17 12:55> Subjective - Date & Time of Evaluation Date of Evaluation: 06/12/17 Time of Evaluation: 09:12 - Subjective Subjective: Medicine Progress Note: Hospitalist Service Patient seen and examined at bedside. Per nursing no acute events overnight. Patient is doing well, offers no complaints at this time. States that he is bored and wants to know when he will be discharged. Patient states that he desires to go back to [facility]. Denies headaches, dizziness, cp, palpitations, sob, abdominal pain, urinary symptoms, changes in bowel habits. Objective - Vital Signs/Intake and Output Vital Signs (last 24 hours): Temp Pulse Resp BP Pulse Ox 97.6 F 58 L 20 101/65 99 06/12/17 07:00 06/12/17 07:00 06/12/17 07:00 06/12/17 07:00 06/12/17 07:00 Intake and Output: 06/12/17 06/12/17 06:59 18:59 Intake Total 300 Output Total 600 Balance -300 - Medications Medications: Current Medications Famotidine (Pepcid) 20 mg PO DAILY [facility] Last Admin: 06/11/17 10:00 Dose: 20 mg Folic Acid (Folic Acid) 1 mg PO DAILY [facility] Last Admin: 06/11/17 10:00 Dose: 1 mg Heparin Sodium (Porcine) (Heparin) 5,000 units SC Q8 [facility] Last Admin: 06/12/17 05:51 Dose: 5,000 units Levetiracetam (Keppra) 1,000 mg PO Q12H [facility] Last Admin: 06/11/17 21:22 Dose: 1,000 mg Lorazepam (Ativan) 1 mg PO Q6H PRN PRN Reason: Seizure activity Multivitamins (Hexavitamin) 1 tab PO DAILY [facility] Last Admin: 06/11/17 10:02 Dose: 1 tab Thiamine HCl (Vitamin B1 Tab) 100 mg PO DAILY [facility] Last Admin: 06/11/17 10:02 Dose: 100 mg - Labs Labs: 06/11/17 07:13 06/11/17 07:13 - Constitutional Appears: Well, Non-toxic - Head Exam Head Exam: ATRAUMATIC, NORMAL INSPECTION, NORMOCEPHALIC - Eye Exam Eye Exam: EOMI, Normal appearance - ENT Exam ENT Exam: Mucous Membranes Moist - Neck Exam Neck Exam: Full ROM - Respiratory Exam Respiratory Exam: Clear to Ausculation Bilateral, NORMAL BREATHING PATTERN. absent: Rales, Rhonchi, Wheezes - Cardiovascular Exam Cardiovascular Exam: REGULAR RHYTHM, +S1, +S2 - GI/Abdominal Exam GI & Abdominal Exam: Soft, Normal Bowel Sounds. absent: Firm, Guarding, Rigid, Tenderness - Rectal Exam Rectal Exam: Deferred - Extremities Exam Extremities Exam: Normal Inspection. absent: Calf Tenderness - Back Exam Back Exam: NORMAL INSPECTION - Neurological Exam Neurological Exam: Alert, Awake, Normal Gait - Psychiatric Exam Psychiatric exam: Normal Affect, Normal Mood - Skin Skin Exam: Dry, Normal Color, Warm Assessment and Plan (1) Seizure Assessment & Plan: * Neurology (Dr. Lundberg) * Stable, afebrile * No recorded seizures * Will monitor labs work qweekly (mondays) * Continue Keppra 1000mg PO Q12H * Ativan 1mg Q6H prn seizure activity * EEG: abnormal study, persistent slowing superimposed with multiple movement artifact, lead artifact as well as muscle artifact. 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 global parenchymal volume loss * Head CT: No evidence of an acute intracranial hemorrhage, midline shift or mass effect is identified. Multifocal left mandibular and maxillary periodontal and -periapical lucency with retained roots and multifocal dental carious lesions. There is comminuted fracture deformity of the nasal bones. * Patient was evaluated by Physical Therapy, Occupational Therapy * Seizure precautions, aspiration precautions Status: Acute (2) Alcohol intoxication Assessment & Plan: * No current signs or symptoms of alcohol withdrawal * Continue Thiamine 100 mg PO daily * Continue Folic Acid 1 mg PO daily * Continue Multivitamins PO daily Status: Suspected (3) Change in mental status Assessment & Plan: * Folic acid 1mg PO daily * Multivitamin 1 tab PO daily * Thiamine 100mg PO daily * Completed Ativan taper completed 05/24/17 * Per latest Dr. 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 Multifocal left mandibular and maxillary periodontal and -periapical lucency with retained roots and multifocal dental carious lesions. There is comminuted fracture deformity of the nasal bones. * TSH: 1.21 * Vitamin B12: 407 * RPR: nonreactive * Hepatitis panel: negative * HIV: negative Status: Acute (4) Prophylactic measure Assessment & Plan: * Pepcid 20mg PO Daily * Heparin 5000U SC Q8H * Patient is awaiting guardianship and assisted living; patient states that he has a cousin (Galdino Manning) in [place] however unable to provide a number or address, states that he lives in [facility]. This information was provided to . Will f/u to see if we can get in contact with his family member. * At this time, we are awaiting Director of Case Management to send letter to [facility] [employer] Range Operator who will then send letter to [facility] to start the process of Guardianship. Status: Acute <Juliet Echevarria V - Last Filed: 06/12/17 15:56> Objective - Vital Signs/Intake and Output Vital Signs (last 24 hours): Temp Pulse Resp BP Pulse Ox 97.6 F 58 L 20 101/65 99 06/12/17 07:00 06/12/17 07:00 06/12/17 07:00 06/12/17 07:00 06/12/17 07:00 Intake and Output: 06/12/17 06/12/17 06:59 18:59 Intake Total 300 Output Total 600 Balance -300 - Medications Medications: Current Medications Famotidine (Pepcid) 20 mg PO DAILY [facility] Last Admin: 06/12/17 09:43 Dose: 20 mg Folic Acid (Folic Acid) 1 mg PO DAILY [facility] Last Admin: 06/12/17 09:43 Dose: 1 mg Heparin Sodium (Porcine) (Heparin) 5,000 units SC Q8 [facility] Last Admin: 06/12/17 14:36 Dose: 5,000 units Levetiracetam (Keppra) 1,000 mg PO Q12H [facility] Last Admin: 06/12/17 09:43 Dose: 1,000 mg Lorazepam (Ativan) 1 mg PO Q6H PRN PRN Reason: Seizure activity Multivitamins (Hexavitamin) 1 tab PO DAILY [facility] Last Admin: 06/12/17 09:43 Dose: 1 tab Thiamine HCl (Vitamin B1 Tab) 100 mg PO DAILY [facility] Last Admin: 06/12/17 09:43 Dose: 100 mg - Labs Labs: 06/11/17 07:13 06/11/17 07:13 Attending/Attestation - Attestation I have personally seen and examined this patient.: Yes I have fully participated in the care of the patient.: Yes I have reviewed all pertinent clinical information, including history, physical exam and plan: Yes Notes (Text): Patient seen, examined, case discussed with medical scientist. Patient seen this morning denies acute complaints at bedside. Patient reports he would likely the hospital and go to [facility]. Patient cannot remember the address nor the phone number of his cousin in [place] , Galdino Anaya? Discussed with case management, patient is pending guardianship. Read prior nephrology social worker's note from June 07 were intact. Patient's cousin was [employer] search were not able to find him. Continue present management. As addendum to resident physical: CN 2-12 grossly intact, negative Babinski sign , strength upper and lower 5/5, speaks in [place]une[place] Assessment/Plan (1) Seizure-->Stable; Chronic Assessment & Plan: * Neurology (Dr. Lundberg) on board-->help appreciated * Had recommend if stable for 24hour period for discharge and should have follow-up visit as outpatient * Stable, afebrile * Continue to monitor on telemetry * Continue Keppra 1000mg PO Q12H * Ativan 1mg Q6H prn seizure activity * F/U phenytoin level * EEG: abnormal study, persistent slowing superimposed with multiple movement artifact, lead artifact as well as muscle artifact. 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 global parenchymal volume loss * Head CT: No evidence of an acute intracranial hemorrhage, midline shift or mass effect is identified. Multifocal left mandibular and maxillary periodontal and -periapical lucency with retained roots and multifocal dental carious lesions. There is comminuted fracture deformity of the nasal bones. * Physical Therapy, Occupational Therapy ordered * Seizure precautions, aspiration precautions (2) Alcohol intoxication-->Resolved Assessment & Plan: * Ativan taper completed 05/24/17 * No current signs or symptoms of alcohol withdrawal * Continue Thiamine 100 mg PO daily * Continue Folic Acid 1 mg PO daily * Continue Multivitamins PO daily * 05/21 ER visit for alcohol abuse/sever intoxication Status: Suspected (3) Change in mental status Assessment & Plan: * Contributing: alcohol abuse, seizure, concern for Wernicke-Korsakoff? * Folic acid 1mg PO daily * MVI 1 tab PO daily * Thiamine 100mg PO daily * Completed Ativan taper completed 05/24/17 * Per latest Dr. 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 global parenchymal volume loss * Head CT: No evidence of an acute intracranial hemorrhage, midline shift or mass effect is identified. Multifocal left mandibular and maxillary periodontal and -periapical lucency with retained roots and multifocal dental carious lesions. There is comminuted fracture deformity of the nasal bones. * TSH: 1.21 * Vitamin B12: 407 * RPR: nonreactive * Hepatitis panel: negative * HIV: negative (4) Prophylactic measure Assessment & Plan: * Pepcid 20mg PO Daily * Heparin 5000U SC Q12H * F/u with social and case management regarding discharge planning Status: Acute Disposition: Per psych, patient does not have any capacity to make any medical decisions. Will need to follow-up with social and case management in regards to discharge planning. Pending guardianship.
[2017-06-12] MEDS: Multiple Vitamins Tab PO SCH (09:43)
[2017-06-12] MEDS ORDERED: Influenza Vaccine 60 mcg/0.5 mL SYR (4YR UP) IM ONE (10:37)
[2017-06-12] MEDS ORDERED: Pneumococcal 23-Valent Vaccine IM ONE (10:37)
--- NOTE | 2017-06-13 06:59 | CP.PCM.PN ---
<Matilda Rebolledo - Last Filed: 06/13/17 15:22> Subjective - Date & Time of Evaluation Date of Evaluation: 06/13/17 Time of Evaluation: 06:58 - Subjective Subjective: Medicine Progress Note: Hospitalist Service Patient seen and examined at bedside. Per nursing no acute events overnight. Patient offers no complaints this morning. Denies headaches, dizziness, cp, palpitations, sob, abdominal pain, urinary symptoms, changes in bowel habits. Called by nursing to evaluate the patient in the afternoon, patient was agitated with his roommate. States that he was is learning Urdu when the main language should be Samoan. Objective - Vital Signs/Intake and Output Vital Signs (last 24 hours): Temp Pulse Resp BP Pulse Ox 98.3 F 76 20 104/64 98 06/12/17 23:50 06/12/17 23:50 06/12/17 23:50 06/12/17 23:50 06/12/17 23:50 - Medications Medications: Current Medications Famotidine (Pepcid) 20 mg PO DAILY [facility] Last Admin: 06/12/17 09:43 Dose: 20 mg Folic Acid (Folic Acid) 1 mg PO DAILY [facility] Last Admin: 06/12/17 09:43 Dose: 1 mg Heparin Sodium (Porcine) (Heparin) 5,000 units SC Q8 [facility] Last Admin: 06/13/17 05:48 Dose: 5,000 units Levetiracetam (Keppra) 1,000 mg PO Q12H [facility] Last Admin: 06/12/17 21:32 Dose: 1,000 mg Lorazepam (Ativan) 1 mg PO Q6H PRN PRN Reason: Seizure activity Multivitamins (Hexavitamin) 1 tab PO DAILY [facility] Last Admin: 06/12/17 09:43 Dose: 1 tab Thiamine HCl (Vitamin B1 Tab) 100 mg PO DAILY [facility] Last Admin: 06/12/17 09:43 Dose: 100 mg - Labs Labs: 06/11/17 07:13 06/11/17 07:13 - Constitutional Appears: Well, No Acute Distress - Head Exam Head Exam: ATRAUMATIC, NORMAL INSPECTION, NORMOCEPHALIC - Eye Exam Eye Exam: EOMI, Normal appearance - ENT Exam ENT Exam: Mucous Membranes Moist - Neck Exam Neck Exam: Full ROM - Respiratory Exam Respiratory Exam: Clear to Ausculation Bilateral, NORMAL BREATHING PATTERN. absent: Rales, Rhonchi, Wheezes - Cardiovascular Exam Cardiovascular Exam: REGULAR RHYTHM, +S1, +S2 - GI/Abdominal Exam GI & Abdominal Exam: Soft, Normal Bowel Sounds. absent: Guarding, Rigid, Tenderness - Rectal Exam Rectal Exam: Deferred - Extremities Exam Extremities Exam: Normal Capillary Refill, Normal Inspection. absent: Calf Tenderness - Back Exam Back Exam: NORMAL INSPECTION - Neurological Exam Neurological Exam: Alert, Awake, CN II-XII Intact Neuro motor strength exam: Left Upper Extremity: 5, Right Upper Extremity: 5, Left Lower Extremity: 5, Right Lower Extremity: 5 - Psychiatric Exam Psychiatric exam: Normal Affect, Normal Mood - Skin Skin Exam: Dry, Normal Color, Warm Assessment and Plan (1) Seizure Assessment & Plan: * Neurology (Dr. Lundberg) * Stable, afebrile * No recorded seizures * Will monitor labs work qweekly (mondays) * Continue Keppra 1000mg PO Q12H * Ativan 1mg Q6H prn seizure activity * EEG: abnormal study, persistent slowing superimposed with multiple movement artifact, lead artifact as well as muscle artifact. 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 global parenchymal volume loss * Head CT: No evidence of an acute intracranial hemorrhage, midline shift or mass effect is identified. Multifocal left mandibular and maxillary periodontal and -periapical lucency with retained roots and multifocal dental carious lesions. There is comminuted fracture deformity of the nasal bones. * Patient was evaluated by Physical Therapy, Occupational Therapy * Seizure precautions, aspiration precautions Status: Acute (2) Alcohol intoxication Assessment & Plan: * No current signs or symptoms of alcohol withdrawal * Continue Thiamine 100 mg PO daily * Continue Folic Acid 1 mg PO daily * Continue Multivitamins PO daily Status: Suspected (3) Change in mental status Assessment & Plan: * Folic acid 1mg PO daily * Multivitamin 1 tab PO daily * Thiamine 100mg PO daily * Completed Ativan taper completed 05/24/17 * Per latest Dr. 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 Multifocal left mandibular and maxillary periodontal and -periapical lucency with retained roots and multifocal dental carious lesions. There is comminuted fracture deformity of the nasal bones. * TSH: 1.21 * Vitamin B12: 407 * RPR: nonreactive * Hepatitis panel: negative * HIV: negative Status: Acute (4) Prophylactic measure Assessment & Plan: * Pepcid 20mg PO Daily * Heparin 5000U SC Q8H * Patient is awaiting guardianship and assisted living; patient states that he has a cousin (Galdino Manning) in [place] however unable to provide a number or address, states that he lives in [facility]. This information was provided to . Will f/u to see if we can get in contact with his family member. * At this time, we are awaiting Director of Case Management to send letter to [facility] [employer] who will then send letter to [facility] to start the process of Guardianship. Status: Acute <Juliet Echevarria V - Last Filed: 06/13/17 17:59> Objective - Vital Signs/Intake and Output Vital Signs (last 24 hours): Temp Pulse Resp BP Pulse Ox 97.7 F 86 20 111/74 98 06/13/17 15:13 06/13/17 15:13 06/13/17 15:13 06/13/17 15:13 06/13/17 15:13 - Medications Medications: Current Medications Famotidine (Pepcid) 20 mg PO DAILY [facility] Last Admin: 06/13/17 10:06 Dose: 20 mg Folic Acid (Folic Acid) 1 mg PO DAILY [facility] Last Admin: 06/13/17 10:06 Dose: 1 mg Heparin Sodium (Porcine) (Heparin) 5,000 units SC Q8 [facility] Last Admin: 06/13/17 13:50 Dose: Not Given Levetiracetam (Keppra) 1,000 mg PO Q12H [facility] Last Admin: 06/13/17 10:06 Dose: 1,000 mg Lorazepam (Ativan) 1 mg PO Q6H PRN PRN Reason: Seizure activity Multivitamins (Hexavitamin) 1 tab PO DAILY [facility] Last Admin: 06/13/17 10:06 Dose: 1 tab Thiamine HCl (Vitamin B1 Tab) 100 mg PO DAILY [facility] Last Admin: 06/13/17 10:06 Dose: 100 mg - Labs Labs: 06/11/17 07:13 06/11/17 07:13 Attending/Attestation - Attestation I have personally seen and examined this patient.: Yes I have fully participated in the care of the patient.: Yes I have reviewed all pertinent clinical information, including history, physical exam and plan: Yes Notes (Text): Patient seen, examined, case discussed with medical records receptionist. Patient seen this morning denies acute complaints at bedside. Patient reports he would like to leave the hospital and go to [facility] [place] [facility]. Patient cannot remember the address nor the phone number of his cousin in [place] , Galdino Manning? Discussed with case management, patient is pending guardianship. Case management is attempting to find patient's cousin to see if he wants to be involved in patient's care. Continue present management. As addendum to resident physical: CN 2-12 grossly intact, negative Babinski sign , strength upper and lower 5/5, speaks in Samoan Assessment/Plan (1) Seizure-->Stable; Chronic Assessment & Plan: * Neurology (Dr. Lundberg) on board-->help appreciated * Had recommend if stable for 24hour period for discharge and should have follow-up visit as outpatient * Stable, afebrile * Continue to monitor on telemetry * Continue Keppra 1000mg PO Q12H * Ativan 1mg Q6H prn seizure activity * F/U phenytoin level * EEG: abnormal study, persistent slowing superimposed with multiple movement artifact, lead artifact as well as muscle artifact. 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 global parenchymal volume loss * Head CT: No evidence of an acute intracranial hemorrhage, midline shift or mass effect is identified. Multifocal left mandibular and maxillary periodontal and -periapical lucency with retained roots and multifocal dental carious lesions. There is comminuted fracture deformity of the nasal bones. * Physical Therapy, Occupational Therapy ordered * Seizure precautions, aspiration precautions (2) Alcohol intoxication-->Resolved Assessment & Plan: * Ativan taper completed 05/24/17 * No current signs or symptoms of alcohol withdrawal * Continue Thiamine 100 mg PO daily * Continue Folic Acid 1 mg PO daily * Continue Multivitamins PO daily * 05/21 ER visit for alcohol abuse/sever intoxication Status: Suspected (3) Change in mental status Assessment & Plan: * Contributing: alcohol abuse, seizure, concern for Wernicke-Korsakoff? * Folic acid 1mg PO daily * MVI 1 tab PO daily * Thiamine 100mg PO daily * Completed Ativan taper completed 05/24/17 * Per latest Dr. 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 global parenchymal volume loss * Head CT: No evidence of an acute intracranial hemorrhage, midline shift or mass effect is identified. Multifocal left mandibular and maxillary periodontal and -periapical lucency with retained roots and multifocal dental carious lesions. There is comminuted fracture deformity of the nasal bones. * TSH: 1.21 * Vitamin B12: 407 * RPR: nonreactive * Hepatitis panel: negative * HIV: negative (4) Prophylactic measure Assessment & Plan: * Pepcid 20mg PO Daily * Heparin 5000U SC Q12H * F/u with social and case management regarding discharge planning Status: Acute Disposition: Per psych, patient does not have any capacity to make any medical decisions. Will need to follow-up with social and case management in regards to discharge planning. Pending guardianship.
[2017-06-13] MEDS: Multiple Vitamins Tab PO SCH (10:06)
--- NOTE | 2017-06-14 07:17 | CP.PCM.PN ---
<Matilda Rebolledo - Last Filed: 06/14/17 12:27> Subjective - Date & Time of Evaluation Date of Evaluation: 06/14/17 Time of Evaluation: 07:15 - Subjective Subjective: Medicine Progress Note: Hospitalist Service Patient seen and examined at bedside. Per nursing no acute events overnight. Patient is doing well, offers no complaints at this time. Denies headaches, dizziness, cp, palpitations, sob, abdominal pain, urinary symptoms, changes in bowel habits. Objective - Vital Signs/Intake and Output Vital Signs (last 24 hours): Temp Pulse Resp BP Pulse Ox 97.7 F 86 20 111/74 98 06/13/17 15:13 06/13/17 15:13 06/13/17 15:13 06/13/17 15:13 06/13/17 15:13 Intake and Output: 06/14/17 06/14/17 06:59 18:59 Intake Total 360 Output Total 250 Balance 110 - Medications Medications: Current Medications Famotidine (Pepcid) 20 mg PO DAILY [facility] Last Admin: 06/13/17 10:06 Dose: 20 mg Folic Acid (Folic Acid) 1 mg PO DAILY [facility] Last Admin: 06/13/17 10:06 Dose: 1 mg Heparin Sodium (Porcine) (Heparin) 5,000 units SC Q8 [facility] Last Admin: 06/14/17 05:34 Dose: 5,000 units Levetiracetam (Keppra) 1,000 mg PO Q12H [facility] Last Admin: 06/13/17 22:05 Dose: 1,000 mg Lorazepam (Ativan) 1 mg PO Q6H PRN PRN Reason: Seizure activity Multivitamins (Hexavitamin) 1 tab PO DAILY [facility] Last Admin: 06/13/17 10:06 Dose: 1 tab Thiamine HCl (Vitamin B1 Tab) 100 mg PO DAILY [facility] Last Admin: 06/13/17 10:06 Dose: 100 mg - Labs Labs: 06/11/17 07:13 06/11/17 07:13 - Constitutional Appears: Well, No Acute Distress - Head Exam Head Exam: ATRAUMATIC, NORMAL INSPECTION - Eye Exam Eye Exam: EOMI, Normal appearance - ENT Exam ENT Exam: Mucous Membranes Moist - Neck Exam Neck Exam: Full ROM - Respiratory Exam Respiratory Exam: Clear to Ausculation Bilateral, NORMAL BREATHING PATTERN. absent: Rales, Rhonchi, Wheezes - Cardiovascular Exam Cardiovascular Exam: REGULAR RHYTHM, +S1, +S2 - GI/Abdominal Exam GI & Abdominal Exam: Soft, Normal Bowel Sounds. absent: Guarding, Rigid, Tenderness - Rectal Exam Rectal Exam: Deferred - Extremities Exam Extremities Exam: Normal Inspection - Back Exam Back Exam: NORMAL INSPECTION - Neurological Exam Neurological Exam: Alert, Awake, CN II-XII Intact, Normal Gait - Psychiatric Exam Psychiatric exam: Flat Affect, Normal Mood - Skin Skin Exam: Normal Color Assessment and Plan (1) Seizure Assessment & Plan: * Neurology (Dr. Lundberg) * Stable, afebrile * No recorded seizures * Will monitor labs work qweekly (mondays) * Continue Keppra 1000mg PO Q12H * Ativan 1mg Q6H prn seizure activity * EEG: abnormal study, persistent slowing superimposed with multiple movement artifact, lead artifact as well as muscle artifact. 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 global parenchymal volume loss * Head CT: No evidence of an acute intracranial hemorrhage, midline shift or mass effect is identified. Multifocal left mandibular and maxillary periodontal and -periapical lucency with retained roots and multifocal dental carious lesions. There is comminuted fracture deformity of the nasal bones. * Patient was evaluated by Physical Therapy, Occupational Therapy * Seizure precautions, aspiration precautions Status: Acute (2) Alcohol intoxication Assessment & Plan: * No current signs or symptoms of alcohol withdrawal * Continue Thiamine 100 mg PO daily * Continue Folic Acid 1 mg PO daily * Continue Multivitamins PO daily Status: Suspected (3) Change in mental status Assessment & Plan: * Folic acid 1mg PO daily * Multivitamin 1 tab PO daily * Thiamine 100mg PO daily * Completed Ativan taper completed 05/24/17 * Per latest Dr. 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 Multifocal left mandibular and maxillary periodontal and -periapical lucency with retained roots and multifocal dental carious lesions. There is comminuted fracture deformity of the nasal bones. * TSH: 1.21 * Vitamin B12: 407 * RPR: nonreactive * Hepatitis panel: negative * HIV: negative Status: Acute (4) Prophylactic measure Assessment & Plan: * Pepcid 20mg PO Daily * Heparin 5000U SC Q8H * Patient is awaiting guardianship and assisted living; patient states that he has a cousin (Galdino Manning) in [place] however unable to provide a number or address, states that he lives in [facility]. This information was provided to . Was able to find Galdino Manning in the white pages, however there is a few to get access to contact information, currently awaiting to see if fee can be waived. * At this time, we are awaiting Director of Case Management to send letter to [facility] [employer] who will then send letter to [facility] to start the process of Guardianship. Status: Acute <Juliet Echevarria V - Last Filed: 06/14/17 13:49> Objective - Vital Signs/Intake and Output Vital Signs (last 24 hours): Temp Pulse Resp BP Pulse Ox 97.5 F L 62 20 97/64 L 100 06/14/17 07:55 06/14/17 07:55 06/14/17 07:55 06/14/17 07:55 06/14/17 07:55 Intake and Output: 06/14/17 06/14/17 06:59 18:59 Intake Total 360 Output Total 250 Balance 110 - Medications Medications: Current Medications Famotidine (Pepcid) 20 mg PO DAILY [facility] Last Admin: 06/14/17 10:18 Dose: 20 mg Folic Acid (Folic Acid) 1 mg PO DAILY [facility] Last Admin: 06/14/17 10:18 Dose: 1 mg Heparin Sodium (Porcine) (Heparin) 5,000 units SC Q8 [facility] Last Admin: 06/14/17 05:34 Dose: 5,000 units Levetiracetam (Keppra) 1,000 mg PO Q12H [facility] Last Admin: 06/14/17 10:18 Dose: 1,000 mg Lorazepam (Ativan) 1 mg PO Q6H PRN PRN Reason: Seizure activity Multivitamins (Hexavitamin) 1 tab PO DAILY [facility] Last Admin: 06/14/17 10:18 Dose: 1 tab Thiamine HCl (Vitamin B1 Tab) 100 mg PO DAILY [facility] Last Admin: 06/14/17 10:18 Dose: 100 mg - Labs Labs: 06/11/17 07:13 06/11/17 07:13 Attending/Attestation - Attestation I have personally seen and examined this patient.: Yes I have fully participated in the care of the patient.: Yes I have reviewed all pertinent clinical information, including history, physical exam and plan: Yes Notes (Text): Patient seen, examined, case discussed with territory sales manager medical. Patient seen this morning denies acute complaints at bedside. Patient cannot remember the address nor the phone number of his cousin in [place] , Galdino Manning? Discussed with case management, patient is pending guardianship. Case management is attempting to find patient's cousin to see if he wants to be involved in patient's care. Continue present management. As addendum to resident physical: CN 2-12 grossly intact, negative Babinski sign , strength upper and lower 5/5, speaks in [place]uran Assessment/Plan (1) Seizure-->Stable; Chronic Assessment & Plan: * Neurology (Dr. Lundberg) on board-->help appreciated * Had recommend if stable for 24hour period for discharge and should have follow-up visit as outpatient * Stable, afebrile * Continue to monitor on telemetry * Continue Keppra 1000mg PO Q12H * Ativan 1mg Q6H prn seizure activity * F/U phenytoin level * EEG: abnormal study, persistent slowing superimposed with multiple movement artifact, lead artifact as well as muscle artifact. 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 global parenchymal volume loss * Head CT: No evidence of an acute intracranial hemorrhage, midline shift or mass effect is identified. Multifocal left mandibular and maxillary periodontal and -periapical lucency with retained roots and multifocal dental carious lesions. There is comminuted fracture deformity of the nasal bones. * Physical Therapy, Occupational Therapy ordered * Seizure precautions, aspiration precautions (2) Alcohol intoxication-->Resolved Assessment & Plan: * Ativan taper completed 05/24/17 * No current signs or symptoms of alcohol withdrawal * Continue Thiamine 100 mg PO daily * Continue Folic Acid 1 mg PO daily * Continue Multivitamins PO daily * 05/21 ER visit for alcohol abuse/sever intoxication Status: Suspected (3) Change in mental status Assessment & Plan: * Contributing: alcohol abuse, seizure, concern for Wernicke-Korsakoff? * Folic acid 1mg PO daily * MVI 1 tab PO daily * Thiamine 100mg PO daily * Completed Ativan taper completed 05/24/17 * Per latest Dr. 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 global parenchymal volume loss * Head CT: No evidence of an acute intracranial hemorrhage, midline shift or mass effect is identified. Multifocal left mandibular and maxillary periodontal and -periapical lucency with retained roots and multifocal dental carious lesions. There is comminuted fracture deformity of the nasal bones. * TSH: 1.21 * Vitamin B12: 407 * RPR: nonreactive * Hepatitis panel: negative * HIV: negative (4) Prophylactic measure Assessment & Plan: * Pepcid 20mg PO Daily * Heparin 5000U SC Q12H * F/u with social and case management regarding discharge planning Status: Acute Disposition: Per psych, patient does not have any capacity to make any medical decisions. Will need to follow-up with social and case management in regards to discharge planning. Pending guardianship.
[2017-06-14] MEDS: Multiple Vitamins Tab PO SCH (10:18)
[2017-06-15] MEDS: Multiple Vitamins Tab PO SCH (10:43)
--- NOTE | 2017-06-15 14:42 | CP.PCM.PN ---
<Karen Leal - Last Filed: 06/15/17 14:37> Subjective - Date & Time of Evaluation Date of Evaluation: 06/15/17 Time of Evaluation: 14:38 - Subjective Subjective: Patient seen and examined at bedside. Per nursing no acute events overnight. Patient is doing well, offers no complaints at this time. Denies headaches, dizziness, cp, palpitations, sob, abdominal pain, urinary symptoms, changes in bowel habits. Objective - Vital Signs/Intake and Output Vital Signs (last 24 hours): Temp Pulse Resp BP Pulse Ox 97.6 F 89 20 104/79 97 06/15/17 07:00 06/15/17 07:00 06/15/17 07:00 06/15/17 07:00 06/15/17 07:00 Intake and Output: 06/15/17 06/15/17 06:59 18:59 Intake Total 120 Output Total 320 Balance -200 - Medications Medications: Current Medications Famotidine (Pepcid) 20 mg PO DAILY [facility] Last Admin: 06/15/17 10:43 Dose: 20 mg Folic Acid (Folic Acid) 1 mg PO DAILY [facility] Last Admin: 06/15/17 10:43 Dose: 1 mg Heparin Sodium (Porcine) (Heparin) 5,000 units SC Q8 [facility] Last Admin: 06/15/17 13:43 Dose: 5,000 units Levetiracetam (Keppra) 1,000 mg PO Q12H [facility] Last Admin: 06/15/17 10:43 Dose: 1,000 mg Lorazepam (Ativan) 1 mg PO Q6H PRN PRN Reason: Seizure activity Multivitamins (Hexavitamin) 1 tab PO DAILY [facility] Last Admin: 06/15/17 10:43 Dose: 1 tab Thiamine HCl (Vitamin B1 Tab) 100 mg PO DAILY [facility] Last Admin: 06/15/17 10:43 Dose: 100 mg - Labs Labs: 06/11/17 07:13 06/11/17 07:13 - Additional Findings Additional findings: - Constitutional Appears: Well, No Acute Distress - Head Exam Head Exam: ATRAUMATIC, NORMAL INSPECTION - Eye Exam Eye Exam: EOMI, Normal appearance - ENT Exam ENT Exam: Mucous Membranes Moist - Neck Exam Neck Exam: Full ROM - Respiratory Exam Respiratory Exam: Clear to Ausculation Bilateral, NORMAL BREATHING PATTERN. absent: Rales, Rhonchi, Wheezes - Cardiovascular Exam Cardiovascular Exam: REGULAR RHYTHM, +S1, +S2 - GI/Abdominal Exam GI & Abdominal Exam: Soft, Normal Bowel Sounds. absent: Guarding, Rigid, Tenderness - Rectal Exam Rectal Exam: Deferred - Extremities Exam Extremities Exam: Normal Inspection - Back Exam Back Exam: NORMAL INSPECTION - Neurological Exam Neurological Exam: Alert, Awake, CN II-XII Intact, Normal Gait - Psychiatric Exam Psychiatric exam: Flat Affect, Normal Mood - Skin Skin Exam: Normal Color Assessment and Plan - Assessment and Plan (Free Text) Plan: (1) Seizure * Neurology (Dr. Lundberg) * Stable, afebrile * No recorded seizures * Will monitor labs work qweekly (mondays) * Continue Keppra 1000mg PO Q12H * Ativan 1mg Q6H prn seizure activity * EEG: abnormal study, persistent slowing superimposed with multiple movement artifact, lead artifact as well as muscle artifact. 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 global parenchymal volume loss * Head CT: No evidence of an acute intracranial hemorrhage, midline shift or mass effect is identified. Multifocal left mandibular and maxillary periodontal and -periapical lucency with retained roots and multifocal dental carious lesions. There is comminuted fracture deformity of the nasal bones. * Patient was evaluated by Physical Therapy, Occupational Therapy * Seizure precautions, aspiration precautions (2) Alcohol intoxication * No current signs or symptoms of alcohol withdrawal * Continue Thiamine 100 mg PO daily * Continue Folic Acid 1 mg PO daily * Continue Multivitamins PO daily (3) Change in mental status * Folic acid 1mg PO daily * Multivitamin 1 tab PO daily * Thiamine 100mg PO daily * Completed Ativan taper completed 05/24/17 * Per latest Dr. 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 Multifocal left mandibular and maxillary periodontal and -periapical lucency with retained roots and multifocal dental carious lesions. There is comminuted fracture deformity of the nasal bones. * TSH: 1.21 * Vitamin B12: 407 * RPR: nonreactive * Hepatitis panel: negative * HIV: negative (4) Prophylactic measure * Pepcid 20mg PO Daily * Heparin 5000U SC Q8H * Patient is awaiting guardianship and assisted living; patient states that he has a cousin (Galdino Manning) in [place] however unable to provide a number or address, states that he lives in [facility]. This information was provided to SW. Was able to find Galdino Manning in the white pages, however there is a few to get access to contact information, currently awaiting to see if fee can be waived. * At this time, we are awaiting Director of Case Management to send letter to [facility] [employer] who will then send letter to [facility] to start the process of Guardianship. Dispo: Per psych, patient does not have any capacity to make any medical decisions. Will need to follow-up with social and case management in regards to discharge planning. Pending guardianship. <Juliet Echevarria V - Last Filed: 06/16/17 07:40> Objective - Vital Signs/Intake and Output Vital Signs (last 24 hours): Temp Pulse Resp BP Pulse Ox 97.4 F L 58 L 20 107/62 100 06/15/17 23:45 06/15/17 23:45 06/15/17 23:45 06/15/17 23:45 06/15/17 23:45 Intake and Output: 06/16/17 06/16/17 06:59 18:59 Intake Total 240 Output Total 300 Balance -60 - Medications Medications: Current Medications Famotidine (Pepcid) 20 mg PO DAILY [facility] Last Admin: 06/15/17 10:43 Dose: 20 mg Folic Acid (Folic Acid) 1 mg PO DAILY [facility] Last Admin: 06/15/17 10:43 Dose: 1 mg Heparin Sodium (Porcine) (Heparin) 5,000 units SC Q8 [facility] Last Admin: 06/16/17 06:27 Dose: 5,000 units Levetiracetam (Keppra) 1,000 mg PO Q12H [facility] Last Admin: 06/15/17 21:48 Dose: 1,000 mg Lorazepam (Ativan) 1 mg PO Q6H PRN PRN Reason: Seizure activity Multivitamins (Hexavitamin) 1 tab PO DAILY [facility] Last Admin: 06/15/17 10:43 Dose: 1 tab Thiamine HCl (Vitamin B1 Tab) 100 mg PO DAILY [facility] Last Admin: 06/15/17 10:43 Dose: 100 mg - Labs Labs: 06/11/17 07:13 06/11/17 07:13 Attending/Attestation - Attestation I have personally seen and examined this patient.: Yes I have fully participated in the care of the patient.: Yes I have reviewed all pertinent clinical information, including history, physical exam and plan: Yes Notes (Text): This is a late computer entry for 06/15/17. Patient seen, examined, case discussed with clinical specialist medical device. Patient seen this morning denies acute complaints at bedside. Patient cannot remember the address nor the phone number of his cousin in [place] , Galdino Manning. Discussed with case management, patient is pending guardianship. Case management is attempting to find patient's cousin to see if he wants to be involved in patient's care. Continue present management. As addendum to resident physical: CN 2-12 grossly intact, negative Babinski sign , strength upper and lower 5/5, speaks in Malian Assessment/Plan (1) Seizure-->Stable; Chronic Assessment & Plan: * Neurology (Dr. Lundberg) on board-->help appreciated * Had recommend if stable for 24hour period for discharge and should have follow-up visit as outpatient * Stable, afebrile * Continue to monitor on telemetry * Continue Keppra 1000mg PO Q12H * Ativan 1mg Q6H prn seizure activity * F/U phenytoin level * EEG: abnormal study, persistent slowing superimposed with multiple movement artifact, lead artifact as well as muscle artifact. 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 global parenchymal volume loss * Head CT: No evidence of an acute intracranial hemorrhage, midline shift or mass effect is identified. Multifocal left mandibular and maxillary periodontal and -periapical lucency with retained roots and multifocal dental carious lesions. There is comminuted fracture deformity of the nasal bones. * Physical Therapy, Occupational Therapy ordered * Seizure precautions, aspiration precautions (2) Alcohol intoxication-->Resolved Assessment & Plan: * Ativan taper completed 05/24/17 * No current signs or symptoms of alcohol withdrawal * Continue Thiamine 100 mg PO daily * Continue Folic Acid 1 mg PO daily * Continue Multivitamins PO daily * 05/21 ER visit for alcohol abuse/sever intoxication Status: Suspected (3) Change in mental status Assessment & Plan: * Contributing: alcohol abuse, seizure, concern for Wernicke-Korsakoff? * Folic acid 1mg PO daily * MVI 1 tab PO daily * Thiamine 100mg PO daily * Completed Ativan taper completed 05/24/17 * Per latest Dr. 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 global parenchymal volume loss * Head CT: No evidence of an acute intracranial hemorrhage, midline shift or mass effect is identified. Multifocal left mandibular and maxillary periodontal and -periapical lucency with retained roots and multifocal dental carious lesions. There is comminuted fracture deformity of the nasal bones. * TSH: 1.21 * Vitamin B12: 407 * RPR: nonreactive * Hepatitis panel: negative * HIV: negative (4) Prophylactic measure Assessment & Plan: * Pepcid 20mg PO Daily * Heparin 5000U SC Q12H * F/u with social and case management regarding discharge planning Status: Acute Disposition: Per psych, patient does not have any capacity to make any medical decisions. Will need to follow-up with social and case management in regards to discharge planning. Pending guardianship. Case management to attempt to follow- up with patient's cousin in [place] if he wants to be involved in care.
--- NOTE | 2017-06-16 00:34 | CP.PCM.PN ---
<Matilda Rebolledo - Last Filed: 06/16/17 02:31> Subjective - Date & Time of Evaluation Date of Evaluation: 06/16/17 Time of Evaluation: 00:34 - Subjective Subjective: Medicine Progress Note: Hospitalist Service Patient seen and examined at bedside. Per nursing no acute events overnight. Patient is doing well, offers no complaints at this time. Denies headaches, dizziness, cp, palpitations, sob, abdominal pain, urinary symptoms, changes in bowel habits. Objective - Vital Signs/Intake and Output Vital Signs (last 24 hours): Temp Pulse Resp BP Pulse Ox 97.3 F L 60 20 109/75 100 06/15/17 15:16 06/15/17 15:16 06/15/17 15:16 06/15/17 15:16 06/15/17 15:16 - Medications Medications: Current Medications Famotidine (Pepcid) 20 mg PO DAILY [facility] Last Admin: 06/15/17 10:43 Dose: 20 mg Folic Acid (Folic Acid) 1 mg PO DAILY [facility] Last Admin: 06/15/17 10:43 Dose: 1 mg Heparin Sodium (Porcine) (Heparin) 5,000 units SC Q8 [facility] Last Admin: 06/15/17 21:48 Dose: 5,000 units Levetiracetam (Keppra) 1,000 mg PO Q12H [facility] Last Admin: 06/15/17 21:48 Dose: 1,000 mg Lorazepam (Ativan) 1 mg PO Q6H PRN PRN Reason: Seizure activity Multivitamins (Hexavitamin) 1 tab PO DAILY [facility] Last Admin: 06/15/17 10:43 Dose: 1 tab Thiamine HCl (Vitamin B1 Tab) 100 mg PO DAILY [facility] Last Admin: 06/15/17 10:43 Dose: 100 mg - Labs Labs: 06/11/17 07:13 06/11/17 07:13 - Constitutional Appears: Well, No Acute Distress - Head Exam Head Exam: ATRAUMATIC, NORMAL INSPECTION, NORMOCEPHALIC - Eye Exam Eye Exam: EOMI, Normal appearance - ENT Exam ENT Exam: Mucous Membranes Moist - Neck Exam Neck Exam: Full ROM - Respiratory Exam Respiratory Exam: Clear to Ausculation Bilateral, NORMAL BREATHING PATTERN. absent: Rales, Rhonchi, Wheezes - Cardiovascular Exam Cardiovascular Exam: REGULAR RHYTHM, +S1, +S2 - GI/Abdominal Exam GI & Abdominal Exam: Soft, Normal Bowel Sounds. absent: Firm, Guarding, Rigid, Tenderness - Rectal Exam Rectal Exam: Deferred - Extremities Exam Extremities Exam: Normal Capillary Refill, Normal Inspection. absent: Calf Tenderness - Neurological Exam Neurological Exam: Alert, Awake, CN II-XII Intact - Psychiatric Exam Psychiatric exam: Normal Affect, Normal Mood - Skin Skin Exam: Normal Color, Warm Assessment and Plan (1) Seizure Assessment & Plan: * Neurology (Dr. Lundberg) * Stable, afebrile * No recorded seizures * Will monitor labs work qweekly (mondays) * Continue Keppra 1000mg PO Q12H * Ativan 1mg Q6H prn seizure activity * EEG: abnormal study, persistent slowing superimposed with multiple movement artifact, lead artifact as well as muscle artifact. 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 global parenchymal volume loss * Head CT: No evidence of an acute intracranial hemorrhage, midline shift or mass effect is identified. Multifocal left mandibular and maxillary periodontal and -periapical lucency with retained roots and multifocal dental carious lesions. There is comminuted fracture deformity of the nasal bones. * Patient was evaluated by Physical Therapy, Occupational Therapy * Seizure precautions, aspiration precautions Status: Acute (2) Alcohol intoxication Assessment & Plan: * No current signs or symptoms of alcohol withdrawal * Continue Thiamine 100 mg PO daily * Continue Folic Acid 1 mg PO daily * Continue Multivitamins PO daily Status: Suspected (3) Change in mental status Assessment & Plan: * Folic acid 1mg PO daily * Multivitamin 1 tab PO daily * Thiamine 100mg PO daily * Completed Ativan taper completed 05/24/17 * Per latest Dr. 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 Multifocal left mandibular and maxillary periodontal and -periapical lucency with retained roots and multifocal dental carious lesions. There is comminuted fracture deformity of the nasal bones. * TSH: 1.21 * Vitamin B12: 407 * RPR: nonreactive * Hepatitis panel: negative * HIV: negative Status: Acute (4) Prophylactic measure Assessment & Plan: * Pepcid 20mg PO Daily * Heparin 5000U SC Q8H * Patient is awaiting guardianship and assisted living; patient states that he has a cousin (Galdino Manning) in [place] however unable to provide a number or address, states that he lives in [facility]. This information was provided to SW. Was able to find Galdino Manning in the white pages, however there is a few to get access to contact information, currently awaiting to see if fee can be waived. * At this time, we are awaiting Director of Case Management to send letter to [facility] [employer] who will then send letter to [facility] to start the process of Guardianship. Dispo: Per psych, patient does not have any capacity to make any medical decisions. Will need to follow-up with social and case management in regards to discharge planning. Pending guardianship Status: Acute <Juliet Echevarria V - Last Filed: 06/16/17 12:53> Objective - Vital Signs/Intake and Output Vital Signs (last 24 hours): Temp Pulse Resp BP Pulse Ox 98.1 F 53 L 20 110/68 97 06/16/17 09:27 06/16/17 09:27 06/16/17 09:27 06/16/17 09:27 06/16/17 09:27 Intake and Output: 06/16/17 06/16/17 06:59 18:59 Intake Total 240 Output Total 300 Balance -60 - Medications Medications: Current Medications Famotidine (Pepcid) 20 mg PO DAILY [facility] Last Admin: 06/16/17 10:00 Dose: 20 mg Folic Acid (Folic Acid) 1 mg PO DAILY [facility] Last Admin: 06/16/17 10:00 Dose: 1 mg Heparin Sodium (Porcine) (Heparin) 5,000 units SC Q8 [facility] Last Admin: 06/16/17 06:27 Dose: 5,000 units Levetiracetam (Keppra) 1,000 mg PO Q12H [facility] Last Admin: 06/15/17 21:48 Dose: 1,000 mg Lorazepam (Ativan) 1 mg PO Q6H PRN PRN Reason: Seizure activity Multivitamins (Hexavitamin) 1 tab PO DAILY [facility] Last Admin: 06/16/17 10:00 Dose: 1 tab Thiamine HCl (Vitamin B1 Tab) 100 mg PO DAILY [facility] Last Admin: 06/16/17 10:00 Dose: 100 mg - Labs Labs: 06/11/17 07:13 06/11/17 07:13 Attending/Attestation - Attestation I have personally seen and examined this patient.: Yes I have fully participated in the care of the patient.: Yes I have reviewed all pertinent clinical information, including history, physical exam and plan: Yes Notes (Text): Patient seen, examined, case discussed with medical office assistant. Patient seen this afternoon. Denies acute complaints at bedside. Patient eating lunch at bedside. Patient cannot remember the address nor the phone number of his cousin in [place] , Galdino Manning. Discussed with case management, patient is pending guardianship. Case management is attempting to find patient's cousin to see if he wants to be involved in patient's care. Continue present management. As addendum to resident physical: CN 2-12 grossly intact, negative Babinski sign , strength upper and lower 5/5, speaks in Japanese Assessment/Plan (1) Seizure-->Stable; Chronic Assessment & Plan: * Neurology (Dr. Lundberg) on board-->help appreciated * Had recommend if stable for 24hour period for discharge and should have follow-up visit as outpatient * Stable, afebrile * Continue to monitor on telemetry * Continue Keppra 1000mg PO Q12H * Ativan 1mg Q6H prn seizure activity * F/U phenytoin level * EEG: abnormal study, persistent slowing superimposed with multiple movement artifact, lead artifact as well as muscle artifact. 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 global parenchymal volume loss * Head CT: No evidence of an acute intracranial hemorrhage, midline shift or mass effect is identified. Multifocal left mandibular and maxillary periodontal and -periapical lucency with retained roots and multifocal dental carious lesions. There is comminuted fracture deformity of the nasal bones. * Physical Therapy, Occupational Therapy ordered * Seizure precautions, aspiration precautions (2) Alcohol intoxication-->Resolved Assessment & Plan: * Ativan taper completed 05/24/17 * No current signs or symptoms of alcohol withdrawal * Continue Thiamine 100 mg PO daily * Continue Folic Acid 1 mg PO daily * Continue Multivitamins PO daily * 05/21 ER visit for alcohol abuse/sever intoxication Status: Suspected (3) Change in mental status Assessment & Plan: * Contributing: alcohol abuse, seizure, concern for Wernicke-Korsakoff? * Folic acid 1mg PO daily * MVI 1 tab PO daily * Thiamine 100mg PO daily * Completed Ativan taper completed 05/24/17 * Per latest Dr. 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 global parenchymal volume loss * Head CT: No evidence of an acute intracranial hemorrhage, midline shift or mass effect is identified. Multifocal left mandibular and maxillary periodontal and -periapical lucency with retained roots and multifocal dental carious lesions. There is comminuted fracture deformity of the nasal bones. * TSH: 1.21 * Vitamin B12: 407 * RPR: nonreactive * Hepatitis panel: negative * HIV: negative (4) Prophylactic measure Assessment & Plan: * Pepcid 20mg PO Daily * Heparin 5000U SC Q12H * F/u with social and case management regarding discharge planning Status: Acute Disposition: Per psych, patient does not have any capacity to make any medical decisions. Will need to follow-up with social and case management in regards to discharge planning. Pending guardianship. Case management to attempt to follow- up with patient's cousin in [place] if he wants to be involved in care.
[2017-06-16] MEDS: Multiple Vitamins Tab PO SCH (10:00)
--- NOTE | 2017-06-17 00:43 | CP.PCM.PN ---
<Matilda Rebolledo - Last Filed: 06/17/17 06:38> Subjective - Date & Time of Evaluation Date of Evaluation: 06/17/17 Time of Evaluation: 00:42 - Subjective Subjective: Medicine Progress Note: Hospitalist Service Patient seen and examined at bedside. Per nursing no acute events overnight. Patient is doing well, resting comfortably. Offers no complaints at this time. Denies headaches, dizziness, cp, palpitations, sob, abdominal pain, urinary symptoms. Objective - Vital Signs/Intake and Output Vital Signs (last 24 hours): Temp Pulse Resp BP Pulse Ox 97.8 F 67 20 116/77 99 06/16/17 16:00 06/16/17 16:00 06/16/17 16:00 06/16/17 16:00 06/16/17 16:00 Intake and Output: 06/16/17 06/17/17 18:59 06:59 Intake Total 480 Balance 480 - Medications Medications: Current Medications Famotidine (Pepcid) 20 mg PO DAILY [facility] Last Admin: 06/16/17 10:00 Dose: 20 mg Folic Acid (Folic Acid) 1 mg PO DAILY [facility] Last Admin: 06/16/17 10:00 Dose: 1 mg Heparin Sodium (Porcine) (Heparin) 5,000 units SC Q8 [facility] Last Admin: 06/16/17 22:44 Dose: 5,000 units Levetiracetam (Keppra) 1,000 mg PO Q12H [facility] Last Admin: 06/17/17 00:29 Dose: 1,000 mg Lorazepam (Ativan) 1 mg PO Q6H PRN PRN Reason: Seizure activity Multivitamins (Hexavitamin) 1 tab PO DAILY [facility] Last Admin: 06/16/17 10:00 Dose: 1 tab Thiamine HCl (Vitamin B1 Tab) 100 mg PO DAILY [facility] Last Admin: 06/16/17 10:00 Dose: 100 mg - Labs Labs: 06/11/17 07:13 06/11/17 07:13 - Additional Findings Additional findings: - Constitutional Appears: Well, No Acute Distress - Head Exam Head Exam: ATRAUMATIC, NORMAL INSPECTION, NORMOCEPHALIC - Eye Exam Eye Exam: EOMI, Normal appearance - ENT Exam ENT Exam: Mucous Membranes Moist - Neck Exam Neck Exam: Full ROM - Respiratory Exam Respiratory Exam: Clear to Ausculation Bilateral, NORMAL BREATHING PATTERN. absent: Rales, Rhonchi, Wheezes - Cardiovascular Exam Cardiovascular Exam: REGULAR RHYTHM, +S1, +S2 - GI/Abdominal Exam GI & Abdominal Exam: Soft, Normal Bowel Sounds. absent: Firm, Guarding, Rigid, Tenderness - Rectal Exam Rectal Exam: Deferred - Extremities Exam Extremities Exam: Normal Capillary Refill, Normal Inspection. absent: Calf Tenderness - Neurological Exam Neurological Exam: Alert, Awake, CN II-XII Intact - Psychiatric Exam Psychiatric exam: Normal Affect, Normal Mood - Skin Skin Exam: Normal Color, Warm Assessment and Plan (1) Seizure Assessment & Plan: * Neurology (Dr. Lundberg) * Stable, afebrile * No recorded seizures * Will monitor labs work qweekly (mondays) * Continue Keppra 1000mg PO Q12H * Ativan 1mg Q6H prn seizure activity * EEG: abnormal study, persistent slowing superimposed with multiple movement artifact, lead artifact as well as muscle artifact. 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 global parenchymal volume loss * Head CT: No evidence of an acute intracranial hemorrhage, midline shift or mass effect is identified. Multifocal left mandibular and maxillary periodontal and -periapical lucency with retained roots and multifocal dental carious lesions. There is comminuted fracture deformity of the nasal bones. * Patient was evaluated by Physical Therapy, Occupational Therapy * Seizure precautions, aspiration precautions Status: Acute (2) Alcohol intoxication Assessment & Plan: * No current signs or symptoms of alcohol withdrawal * Continue Thiamine 100 mg PO daily * Continue Folic Acid 1 mg PO daily * Continue Multivitamins PO daily Status: Suspected (3) Change in mental status Assessment & Plan: * Folic acid 1mg PO daily * Multivitamin 1 tab PO daily * Thiamine 100mg PO daily * Completed Ativan taper completed 05/24/17 * Per latest Dr. 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 Multifocal left mandibular and maxillary periodontal and -periapical lucency with retained roots and multifocal dental carious lesions. There is comminuted fracture deformity of the nasal bones. * TSH: 1.21 * Vitamin B12: 407 * RPR: nonreactive * Hepatitis panel: negative * HIV: negative Status: Acute (4) Prophylactic measure Assessment & Plan: * Pepcid 20mg PO Daily * Heparin 5000U SC Q8H * Patient is awaiting guardianship and assisted living; patient states that he has a cousin (Galdino Manning) in [place] however unable to provide a number or address, states that he lives in [facility]. This information was provided to SW. Was able to find Galdino Manning in the white pages, however there is a few to get access to contact information, currently awaiting to see if fee can be waived. * At this time, we are awaiting Director of Case Management to send letter to [facility] Coordinator who will then send letter to [facility] to start the process of Guardianship. Dispo: Per psych, patient does not have any capacity to make any medical decisions. Will need to follow-up with social and case management in regards to discharge planning. Pending guardianship Status: Acute <Juliet Echevarria V - Last Filed: 06/17/17 19:33> Objective - Vital Signs/Intake and Output Vital Signs (last 24 hours): Temp Pulse Resp BP Pulse Ox 98.3 F 67 18 96/58 L 98 06/17/17 15:00 06/17/17 15:00 06/17/17 15:00 06/17/17 15:00 06/17/17 15:00 - Medications Medications: Current Medications Famotidine (Pepcid) 20 mg PO DAILY [facility] Last Admin: 06/17/17 09:42 Dose: 20 mg Folic Acid (Folic Acid) 1 mg PO DAILY [facility] Last Admin: 06/17/17 09:42 Dose: 1 mg Heparin Sodium (Porcine) (Heparin) 5,000 units SC Q8 [facility] Levetiracetam (Keppra) 1,000 mg PO Q12H [facility] Last Admin: 06/17/17 09:42 Dose: 1,000 mg Lorazepam (Ativan) 1 mg PO Q6H PRN PRN Reason: Seizure activity Multivitamins (Hexavitamin) 1 tab PO DAILY [facility] Last Admin: 06/17/17 09:42 Dose: 1 tab Thiamine HCl (Vitamin B1 Tab) 100 mg PO DAILY [facility] Last Admin: 06/17/17 09:42 Dose: 100 mg - Labs Labs: 06/11/17 07:13 06/11/17 07:13 Attending/Attestation - Attestation I have personally seen and examined this patient.: Yes I have fully participated in the care of the patient.: Yes I have reviewed all pertinent clinical information, including history, physical exam and plan: Yes Notes (Text): Patient seen, examined, case discussed with certified court/medical interpreter. Patient seen this afternoon. Denies acute complaints at bedside. Patient eating lunch at bedside. Patient cannot remember the address nor the phone number of his cousin in [place] , Galdino Manning. Discussed with case management, patient is pending guardianship. Case management is attempting to find patient's cousin to see if he wants to be involved in patient's care. Continue present management. Patient reports mild constipation; will start stool softeners. As addendum to resident physical: CN 2-12 grossly intact, negative Babinski sign , strength upper and lower 5/5, speaks in [place] Assessment/Plan (1) Seizure-->Stable; Chronic Assessment & Plan: * Neurology (Dr. Lundberg) on board-->help appreciated * Had recommend if stable for 24hour period for discharge and should have follow-up visit as outpatient * Stable, afebrile * Continue to monitor on telemetry * Continue Keppra 1000mg PO Q12H * Ativan 1mg Q6H prn seizure activity * F/U phenytoin level * EEG: abnormal study, persistent slowing superimposed with multiple movement artifact, lead artifact as well as muscle artifact. 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 global parenchymal volume loss * Head CT: No evidence of an acute intracranial hemorrhage, midline shift or mass effect is identified. Multifocal left mandibular and maxillary periodontal and -periapical lucency with retained roots and multifocal dental carious lesions. There is comminuted fracture deformity of the nasal bones. * Physical Therapy, Occupational Therapy ordered * Seizure precautions, aspiration precautions (2) Alcohol intoxication-->Resolved Assessment & Plan: * Ativan taper completed 05/24/17 * No current signs or symptoms of alcohol withdrawal * Continue Thiamine 100 mg PO daily * Continue Folic Acid 1 mg PO daily * Continue Multivitamins PO daily * 05/21 ER visit for alcohol abuse/sever intoxication Status: Suspected (3) Change in mental status Assessment & Plan: * Contributing: alcohol abuse, seizure, concern for Wernicke-Korsakoff? * Folic acid 1mg PO daily * MVI 1 tab PO daily * Thiamine 100mg PO daily * Completed Ativan taper completed 05/24/17 * Per latest Dr. 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 global parenchymal volume loss * Head CT: No evidence of an acute intracranial hemorrhage, midline shift or mass effect is identified. Multifocal left mandibular and maxillary periodontal and -periapical lucency with retained roots and multifocal dental carious lesions. There is comminuted fracture deformity of the nasal bones. * TSH: 1.21 * Vitamin B12: 407 * RPR: nonreactive * Hepatitis panel: negative * HIV: negative (4) Prophylactic measure Assessment & Plan: * Pepcid 20mg PO Daily * Heparin 5000U SC Q12H * F/u with social and case management regarding discharge planning Status: Acute Disposition: Per psych, patient does not have any capacity to make any medical decisions. Will need to follow-up with social and case management in regards to discharge planning. Pending guardianship. Case management to attempt to follow- up with patient's cousin in [place] if he wants to be involved in care.
[2017-06-17] MEDS: Multiple Vitamins Tab PO SCH (09:42)
--- NOTE | 2017-06-18 08:12 | CP.PCM.PN ---
<Matilda Rebolledo - Last Filed: 06/18/17 17:51> Subjective - Date & Time of Evaluation Date of Evaluation: 06/18/17 Time of Evaluation: 08:10 - Subjective Subjective: Medicine Progress Note: Hospitalist Service Patient seen and examined at bedside. Per nursing no acute events overnight. Patient is doing well, offers no complaints at this time. Last BM was yesterday. States that he has been ambulating. Denies headaches, dizziness, cp, palpitations, sob, abdominal pain, urinary symptoms, changes in bowel habits. Objective - Vital Signs/Intake and Output Vital Signs (last 24 hours): Temp Pulse Resp BP Pulse Ox 98.2 F 65 20 96/59 L 98 06/17/17 23:35 06/17/17 23:35 06/17/17 23:35 06/17/17 23:35 06/17/17 23:35 Intake and Output: 06/18/17 06/18/17 06:59 18:59 Intake Total 500 Output Total 300 Balance 200 - Medications Medications: Current Medications Docusate Sodium (Colace) 100 mg PO TID [facility] Famotidine (Pepcid) 20 mg PO DAILY [facility] Last Admin: 06/17/17 09:42 Dose: 20 mg Folic Acid (Folic Acid) 1 mg PO DAILY [facility] Last Admin: 06/17/17 09:42 Dose: 1 mg Heparin Sodium (Porcine) (Heparin) 5,000 units SC Q8 [facility] Last Admin: 06/18/17 05:22 Dose: 5,000 units Levetiracetam (Keppra) 1,000 mg PO Q12H [facility] Last Admin: 06/17/17 22:08 Dose: 1,000 mg Lorazepam (Ativan) 1 mg PO Q6H PRN PRN Reason: Seizure activity Multivitamins (Hexavitamin) 1 tab PO DAILY [facility] Last Admin: 06/17/17 09:42 Dose: 1 tab Thiamine HCl (Vitamin B1 Tab) 100 mg PO DAILY [facility] Last Admin: 06/17/17 09:42 Dose: 100 mg - Labs Labs: 06/11/17 07:13 06/11/17 07:13 - Constitutional Appears: Well, No Acute Distress - Head Exam Head Exam: ATRAUMATIC, NORMAL INSPECTION - Eye Exam Eye Exam: EOMI, Normal appearance - ENT Exam ENT Exam: Mucous Membranes Moist - Respiratory Exam Respiratory Exam: Clear to Ausculation Bilateral, NORMAL BREATHING PATTERN. absent: Rales, Rhonchi, Wheezes - Cardiovascular Exam Cardiovascular Exam: REGULAR RHYTHM, +S1, +S2 - GI/Abdominal Exam GI & Abdominal Exam: Soft, Normal Bowel Sounds. absent: Guarding, Rigid, Tenderness - Rectal Exam Rectal Exam: Deferred - Back Exam Back Exam: NORMAL INSPECTION - Neurological Exam Neurological Exam: Alert, Awake, CN II-XII Intact Neuro motor strength exam: Left Upper Extremity: 5, Right Upper Extremity: 5, Left Lower Extremity: 5, Right Lower Extremity: 5 - Psychiatric Exam Psychiatric exam: Flat Affect, Normal Mood - Skin Skin Exam: Dry, Normal Color, Warm Assessment and Plan (1) Seizure Assessment & Plan: * Neurology (Dr. Lundberg) * Stable, afebrile * No recorded seizures * Will monitor labs work qweekly (mondays) * Continue Keppra 1000mg PO Q12H * Ativan 1mg Q6H prn seizure activity * EEG: abnormal study, persistent slowing superimposed with multiple movement artifact, lead artifact as well as muscle artifact. 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 global parenchymal volume loss * Head CT: No evidence of an acute intracranial hemorrhage, midline shift or mass effect is identified. Multifocal left mandibular and maxillary periodontal and -periapical lucency with retained roots and multifocal dental carious lesions. There is comminuted fracture deformity of the nasal bones. * Patient was evaluated by Physical Therapy, Occupational Therapy * Seizure precautions, aspiration precautions Status: Acute (2) Alcohol intoxication Assessment & Plan: * No current signs or symptoms of alcohol withdrawal * Continue Thiamine 100 mg PO daily * Continue Folic Acid 1 mg PO daily * Continue Multivitamins PO daily Status: Suspected (3) Change in mental status Assessment & Plan: * Folic acid 1mg PO daily * Multivitamin 1 tab PO daily * Thiamine 100mg PO daily * Completed Ativan taper completed 05/24/17 * Per latest Dr. 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 Multifocal left mandibular and maxillary periodontal and -periapical lucency with retained roots and multifocal dental carious lesions. There is comminuted fracture deformity of the nasal bones. * TSH: 1.21 * Vitamin B12: 407 * RPR: nonreactive * Hepatitis panel: negative * HIV: negative Status: Acute (4) Constipation Assessment & Plan: * Colace 100mg TID * Monitor bowel function Status: Acute (5) Prophylactic measure Assessment & Plan: * Pepcid 20mg PO Daily * Heparin 5000U SC Q8H * Patient is awaiting guardianship and assisted living; patient states that he has a cousin (Galdino Manning) in [place] however unable to provide a number or address, states that he lives in [facility]. This information was provided to . Was able to find Galdino Manning in the white pages, however there is a few to get access to contact information, currently awaiting to see if fee can be waived. * At this time, we are awaiting Director of Case Management to send letter to [facility] Help Desk Rep who will then send letter to [facility] to start the process of Guardianship. Dispo: Per psych, patient does not have any capacity to make any medical decisions. Will need to follow-up with social and case management in regards to discharge planning. Pending guardianship Status: Acute <Imer Silveira - Last Filed: 06/18/17 20:10> Objective - Vital Signs/Intake and Output Vital Signs (last 24 hours): Temp Pulse Resp BP Pulse Ox 97.9 F 69 20 110/75 99 06/18/17 16:33 06/18/17 16:33 06/18/17 16:33 06/18/17 16:33 06/18/17 16:33 - Medications Medications: Current Medications Docusate Sodium (Colace) 100 mg PO TID [facility] Last Admin: 06/18/17 18:42 Dose: 100 mg Famotidine (Pepcid) 20 mg PO DAILY [facility] Last Admin: 06/18/17 09:50 Dose: 20 mg Folic Acid (Folic Acid) 1 mg PO DAILY [facility] Last Admin: 06/18/17 09:50 Dose: 1 mg Heparin Sodium (Porcine) (Heparin) 5,000 units SC Q8 [facility] Last Admin: 06/18/17 13:58 Dose: 5,000 units Levetiracetam (Keppra) 1,000 mg PO Q12H [facility] Last Admin: 06/18/17 09:50 Dose: 1,000 mg Lorazepam (Ativan) 1 mg PO Q6H PRN PRN Reason: Seizure activity Multivitamins (Hexavitamin) 1 tab PO DAILY [facility] Last Admin: 06/18/17 09:50 Dose: 1 tab Thiamine HCl (Vitamin B1 Tab) 100 mg PO DAILY [facility] Last Admin: 06/18/17 09:50 Dose: 100 mg - Labs Labs: 06/11/17 07:13 06/11/17 07:13 Attending/Attestation - Attestation I have personally seen and examined this patient.: Yes I have fully participated in the care of the patient.: Yes I have reviewed all pertinent clinical information, including history, physical exam and plan: Yes Notes (Text): 06/18/17 20:10 Patient was seen and examined at 1:30 PM 06/18/17. Exam, assessment and plan were gone over with the resident. Awaiting placement. Imer Silveira D.O.
[2017-06-18] MEDS: Multiple Vitamins Tab PO SCH (09:50)
--- NOTE | 2017-06-19 07:23 | CP.PCM.PN ---
<Matilda Rebolledo - Last Filed: 06/19/17 15:01> Subjective - Date & Time of Evaluation Date of Evaluation: 06/19/17 Time of Evaluation: 07:22 - Subjective Subjective: Medicine Progress Note: Hospitalist Service Patient seen and examined at bedside. Per nursing no acute events overnight. Patient is doing well, offers no complaints at this time. Denies headaches, dizziness, cp, palpitations, sob, abdominal pain, urinary symptoms, changes in bowel habits. Objective - Vital Signs/Intake and Output Vital Signs (last 24 hours): Temp Pulse Resp BP Pulse Ox 97.6 F 69 20 101/65 96 06/18/17 23:40 06/18/17 23:40 06/18/17 23:40 06/18/17 23:40 06/18/17 23:40 Intake and Output: 06/19/17 06/19/17 06:59 18:59 Intake Total 0 Balance 0 - Medications Medications: Current Medications Docusate Sodium (Colace) 100 mg PO TID [facility] Last Admin: 06/18/17 18:42 Dose: 100 mg Famotidine (Pepcid) 20 mg PO DAILY [facility] Last Admin: 06/18/17 09:50 Dose: 20 mg Folic Acid (Folic Acid) 1 mg PO DAILY [facility] Last Admin: 06/18/17 09:50 Dose: 1 mg Heparin Sodium (Porcine) (Heparin) 5,000 units SC Q8 [facility] Last Admin: 06/19/17 06:02 Dose: 5,000 units Levetiracetam (Keppra) 1,000 mg PO Q12H [facility] Last Admin: 06/18/17 22:13 Dose: 1,000 mg Lorazepam (Ativan) 1 mg PO Q6H PRN PRN Reason: Seizure activity Multivitamins (Hexavitamin) 1 tab PO DAILY [facility] Last Admin: 06/18/17 09:50 Dose: 1 tab Thiamine HCl (Vitamin B1 Tab) 100 mg PO DAILY [facility] Last Admin: 06/18/17 09:50 Dose: 100 mg - Labs Labs: 06/11/17 07:13 06/11/17 07:13 - Additional Findings Additional findings: - Constitutional Appears: Well, No Acute Distress - Head Exam Head Exam: ATRAUMATIC, NORMAL INSPECTION - Eye Exam Eye Exam: EOMI, Normal appearance - ENT Exam ENT Exam: Mucous Membranes Moist - Respiratory Exam Respiratory Exam: Clear to Ausculation Bilateral, NORMAL BREATHING PATTERN. absent: Rales, Rhonchi, Wheezes - Cardiovascular Exam Cardiovascular Exam: REGULAR RHYTHM, +S1, +S2 - GI/Abdominal Exam GI & Abdominal Exam: Soft, Normal Bowel Sounds. absent: Guarding, Rigid, Tenderness - Rectal Exam Rectal Exam: Deferred - Back Exam Back Exam: NORMAL INSPECTION - Neurological Exam Neurological Exam: Alert, Awake, CN II-XII Intact Neuro motor strength exam: Left Upper Extremity: 5, Right Upper Extremity: 5, Left Lower Extremity: 5, Right Lower Extremity: 5 - Psychiatric Exam Psychiatric exam: Flat Affect, Normal Mood - Skin Skin Exam: Dry, Normal Color, Warm Assessment and Plan (1) Seizure Assessment & Plan: * Neurology (Dr. Lundberg) * Stable, afebrile * No recorded seizures * Will monitor labs work qweekly (mondays) * Continue Keppra 1000mg PO Q12H * Ativan 1mg Q6H prn seizure activity * EEG: abnormal study, persistent slowing superimposed with multiple movement artifact, lead artifact as well as muscle artifact. 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 global parenchymal volume loss * Head CT: No evidence of an acute intracranial hemorrhage, midline shift or mass effect is identified. Multifocal left mandibular and maxillary periodontal and -periapical lucency with retained roots and multifocal dental carious lesions. There is comminuted fracture deformity of the nasal bones. * Patient was evaluated by Physical Therapy, Occupational Therapy * Seizure precautions, aspiration precautions Status: Acute (2) Alcohol intoxication Assessment & Plan: * No current signs or symptoms of alcohol withdrawal * Continue Thiamine 100 mg PO daily * Continue Folic Acid 1 mg PO daily * Continue Multivitamins PO daily Status: Suspected (3) Change in mental status Assessment & Plan: * Folic acid 1mg PO daily * Multivitamin 1 tab PO daily * Thiamine 100mg PO daily * Completed Ativan taper completed 05/24/17 * Per latest Dr. 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 Multifocal left mandibular and maxillary periodontal and -periapical lucency with retained roots and multifocal dental carious lesions. There is comminuted fracture deformity of the nasal bones. * TSH: 1.21 * Vitamin B12: 407 * RPR: nonreactive * Hepatitis panel: negative * HIV: negative Status: Acute (4) Constipation Assessment & Plan: * Colace 100mg TID * Monitor bowel function Status: Acute (5) Prophylactic measure Assessment & Plan: * Pepcid 20mg PO Daily * Heparin 5000U SC Q8H * Patient is awaiting guardianship and assisted living; patient states that he has a cousin (Galdino Manning) in [place] however unable to provide a number or address, states that he lives in [facility]. This information was provided to . Was able to find Galdino Manning in the white pages, however there is a few to get access to contact information, currently awaiting to see if fee can be waived. * At this time, we are awaiting Director of Case Management to send letter to [facility] [employer] Table Worker who will then send letter to [facility] to start the process of Guardianship. Dispo: Per psych, patient does not have any capacity to make any medical decisions. Will need to follow-up with social and case management in regards to discharge planning. Pending guardianship Status: Acute <Juliet Echevarria V - Last Filed: 06/21/17 22:57> Objective - Vital Signs/Intake and Output Vital Signs (last 24 hours): Temp Pulse Resp BP Pulse Ox 97.9 F 78 20 107/72 95 06/21/17 15:00 06/21/17 15:00 06/21/17 15:00 06/21/17 15:00 06/21/17 15:00 - Medications Medications: Current Medications Docusate Sodium (Colace) 100 mg PO BID [facility] Last Admin: 06/21/17 17:41 Dose: 100 mg Famotidine (Pepcid) 20 mg PO DAILY [facility] Last Admin: 06/21/17 10:20 Dose: 20 mg Folic Acid (Folic Acid) 1 mg PO DAILY [facility] Last Admin: 06/21/17 10:10 Dose: 1 mg Heparin Sodium (Porcine) (Heparin) 5,000 units SC Q8 [facility] Last Admin: 06/21/17 21:33 Dose: 5,000 units Levetiracetam (Keppra) 1,000 mg PO Q12H [facility] Last Admin: 06/21/17 21:33 Dose: 1,000 mg Lorazepam (Ativan) 1 mg PO Q6H PRN PRN Reason: Seizure activity Multivitamins (Hexavitamin) 1 tab PO DAILY [facility] Last Admin: 06/21/17 10:20 Dose: 1 tab Thiamine HCl (Vitamin B1 Tab) 100 mg PO DAILY [facility] Last Admin: 06/21/17 10:20 Dose: 100 mg - Labs Labs: 06/11/17 07:13 06/11/17 07:13 Attending/Attestation - Attestation I have personally seen and examined this patient.: Yes I have fully participated in the care of the patient.: Yes I have reviewed all pertinent clinical information, including history, physical exam and plan: Yes Notes (Text): This is a late computer entry for 06/19/17. Patient seen, examined, and case discussed with day-time resident. No acute changes. Continue current management. Will need to coordinate with case management and renal social worker in regards to placement. As addendum to resident physical: CN 2-12 grossly intact, negative Babinski sign , strength upper and lower 5/5, speaks in Tajik Assessment/Plan (1) Seizure-->Stable; Chronic Assessment & Plan: * Neurology (Dr. Lundberg) on board-->help appreciated * Had recommend if stable for 24hour period for discharge and should have follow-up visit as outpatient * Stable, afebrile * Continue to monitor on telemetry * Continue Keppra 1000mg PO Q12H * Ativan 1mg Q6H prn seizure activity * F/U phenytoin level * EEG: abnormal study, persistent slowing superimposed with multiple movement artifact, lead artifact as well as muscle artifact. 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 global parenchymal volume loss * Head CT: No evidence of an acute intracranial hemorrhage, midline shift or mass effect is identified. Multifocal left mandibular and maxillary periodontal and -periapical lucency with retained roots and multifocal dental carious lesions. There is comminuted fracture deformity of the nasal bones. * Physical Therapy, Occupational Therapy ordered * Seizure precautions, aspiration precautions (2) Alcohol intoxication-->Resolved Assessment & Plan: * Ativan taper completed 05/24/17 * No current signs or symptoms of alcohol withdrawal * Continue Thiamine 100 mg PO daily * Continue Folic Acid 1 mg PO daily * Continue Multivitamins PO daily * 05/21 ER visit for alcohol abuse/sever intoxication Status: Suspected (3) Change in mental status Assessment & Plan: * Contributing: alcohol abuse, seizure, concern for Wernicke-Korsakoff? * Folic acid 1mg PO daily * MVI 1 tab PO daily * Thiamine 100mg PO daily * Completed Ativan taper completed 05/24/17 * Per latest Dr. 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 global parenchymal volume loss * Head CT: No evidence of an acute intracranial hemorrhage, midline shift or mass effect is identified. Multifocal left mandibular and maxillary periodontal and -periapical lucency with retained roots and multifocal dental carious lesions. There is comminuted fracture deformity of the nasal bones. * TSH: 1.21 * Vitamin B12: 407 * RPR: nonreactive * Hepatitis panel: negative * HIV: negative (4) Prophylactic measure Assessment & Plan: * Pepcid 20mg PO Daily * Heparin 5000U SC Q12H * F/u with social and case management regarding discharge planning Status: Acute Disposition: Per psych, patient does not have any capacity to make any medical decisions. Will need to follow-up with social and case management in regards to discharge planning. Pending guardianship. Case management to attempt to follow- up with patient's cousin in [place] if he wants to be involved in care.
[2017-06-19] MEDS: Multiple Vitamins Tab PO SCH (10:47)
--- NOTE | 2017-06-20 07:51 | CP.PCM.PN ---
<Matilda Rebolledo - Last Filed: 06/20/17 16:12> Subjective - Date & Time of Evaluation Date of Evaluation: 06/20/17 Time of Evaluation: 07:51 - Subjective Subjective: Medicine Progress Note: Hospitalist Service Patient seen and examined at bedside. Per nursing no acute events overnight. Patient is doing well, asking why he is still in the hospital. Offers no other complaints. Denies headaches, dizziness, cp, palpitations, sob, abdominal pain, urinary symptoms, changes in bowel habits. Objective - Vital Signs/Intake and Output Vital Signs (last 24 hours): Temp Pulse Resp BP Pulse Ox 97.4 F L 61 20 98/59 L 97 06/19/17 23:40 06/19/17 23:40 06/19/17 23:40 06/19/17 23:40 06/19/17 23:40 Intake and Output: 06/20/17 06/20/17 06:59 18:59 Intake Total 0 Balance 0 - Medications Medications: Current Medications Docusate Sodium (Colace) 100 mg PO TID [facility] Last Admin: 06/19/17 17:14 Dose: 100 mg Famotidine (Pepcid) 20 mg PO DAILY [facility] Last Admin: 06/19/17 10:47 Dose: 20 mg Folic Acid (Folic Acid) 1 mg PO DAILY [facility] Last Admin: 06/19/17 10:47 Dose: 1 mg Heparin Sodium (Porcine) (Heparin) 5,000 units SC Q8 [facility] Last Admin: 06/20/17 05:42 Dose: 5,000 units Levetiracetam (Keppra) 1,000 mg PO Q12H [facility] Last Admin: 06/19/17 21:39 Dose: 1,000 mg Lorazepam (Ativan) 1 mg PO Q6H PRN PRN Reason: Seizure activity Multivitamins (Hexavitamin) 1 tab PO DAILY [facility] Last Admin: 06/19/17 10:47 Dose: 1 tab Thiamine HCl (Vitamin B1 Tab) 100 mg PO DAILY [facility] Last Admin: 06/19/17 10:49 Dose: 100 mg - Labs Labs: 06/11/17 07:13 06/11/17 07:13 - Additional Findings Additional findings: - Additional Findings Additional findings: - Constitutional Appears: Well, No Acute Distress - Head Exam Head Exam: ATRAUMATIC, NORMAL INSPECTION - Eye Exam Eye Exam: EOMI, Normal appearance - ENT Exam ENT Exam: Mucous Membranes Moist - Respiratory Exam Respiratory Exam: Clear to Ausculation Bilateral, NORMAL BREATHING PATTERN. absent: Rales, Rhonchi, Wheezes - Cardiovascular Exam Cardiovascular Exam: REGULAR RHYTHM, +S1, +S2 - GI/Abdominal Exam GI & Abdominal Exam: Soft, Normal Bowel Sounds. absent: Guarding, Rigid, Tenderness - Rectal Exam Rectal Exam: Deferred - Back Exam Back Exam: NORMAL INSPECTION - Neurological Exam Neurological Exam: Alert, Awake, CN II-XII Intact Neuro motor strength exam: Left Upper Extremity: 5, Right Upper Extremity: 5, Left Lower Extremity: 5, Right Lower Extremity: 5 - Psychiatric Exam Psychiatric exam: Flat Affect, Normal Mood - Skin Skin Exam: Dry, Normal Color, Warm Assessment and Plan (1) Seizure Assessment & Plan: * Neurology (Dr. Lundberg) * Stable, afebrile * No recorded seizures * Will monitor labs work qweekly (mondays) * Continue Keppra 1000mg PO Q12H * Ativan 1mg Q6H prn seizure activity * EEG: abnormal study, persistent slowing superimposed with multiple movement artifact, lead artifact as well as muscle artifact. 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 global parenchymal volume loss * Head CT: No evidence of an acute intracranial hemorrhage, midline shift or mass effect is identified. Multifocal left mandibular and maxillary periodontal and -periapical lucency with retained roots and multifocal dental carious lesions. There is comminuted fracture deformity of the nasal bones. * Patient was evaluated by Physical Therapy, Occupational Therapy * Seizure precautions, aspiration precautions Status: Acute (2) Alcohol intoxication Assessment & Plan: * No current signs or symptoms of alcohol withdrawal * Continue Thiamine 100 mg PO daily * Continue Folic Acid 1 mg PO daily * Continue Multivitamins PO daily Status: Suspected Status: Suspected (3) Change in mental status Assessment & Plan: * Folic acid 1mg PO daily * Multivitamin 1 tab PO daily * Thiamine 100mg PO daily * Completed Ativan taper completed 05/24/17 * Per latest Dr. 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 Multifocal left mandibular and maxillary periodontal and -periapical lucency with retained roots and multifocal dental carious lesions. There is comminuted fracture deformity of the nasal bones. * TSH: 1.21 * Vitamin B12: 407 * RPR: nonreactive * Hepatitis panel: negative * HIV: negative Status: Acute (4) Constipation Assessment & Plan: * Colace 100mg TID * Monitor bowel function Status: Acute (5) Prophylactic measure Assessment & Plan: * Pepcid 20mg PO Daily * Heparin 5000U SC Q8H * Patient is awaiting guardianship and assisted living; patient states that he has a cousin (Galdino Manning) in [place] however unable to provide a number or address, states that he lives in [facility]. This information was provided to . Was able to find Galdino Manning in the white pages, however there is a few to get access to contact information, currently awaiting to see if fee can be waived. * At this time, we are awaiting Director of Case Management to send letter to [facility] Sheet Sorter who will then send letter to [facility] to start the process of Guardianship. Dispo: Per psych, patient does not have any capacity to make any medical decisions. Will need to follow-up with social and case management in regards to discharge planning. Pending guardianship Status: Acute <Imer Silveira - Last Filed: 06/20/17 20:54> Objective - Vital Signs/Intake and Output Vital Signs (last 24 hours): Temp Pulse Resp BP Pulse Ox 97.5 F L 69 20 103/71 98 06/20/17 15:19 06/20/17 15:19 06/20/17 15:19 06/20/17 15:19 06/20/17 15:19 - Medications Medications: Current Medications Docusate Sodium (Colace) 100 mg PO TID [facility] Last Admin: 06/20/17 17:32 Dose: 100 mg Famotidine (Pepcid) 20 mg PO DAILY [facility] Last Admin: 06/20/17 09:23 Dose: 20 mg Folic Acid (Folic Acid) 1 mg PO DAILY [facility] Last Admin: 01/10/18 09:24 Dose: 1 mg Heparin Sodium (Porcine) (Heparin) 5,000 units SC Q8 [facility] Last Admin: 06/20/17 13:16 Dose: 5,000 units Levetiracetam (Keppra) 1,000 mg PO Q12H [facility] Last Admin: 06/20/17 09:24 Dose: 1,000 mg Lorazepam (Ativan) 1 mg PO Q6H PRN PRN Reason: Seizure activity Multivitamins (Hexavitamin) 1 tab PO DAILY [facility] Last Admin: 06/20/17 09:24 Dose: 1 tab Thiamine HCl (Vitamin B1 Tab) 100 mg PO DAILY [facility] Last Admin: 06/20/17 09:24 Dose: 100 mg - Labs Labs: 06/11/17 07:13 06/11/17 07:13 Attending/Attestation - Attestation I have personally seen and examined this patient.: Yes I have fully participated in the care of the patient.: Yes I have reviewed all pertinent clinical information, including history, physical exam and plan: Yes Notes (Text): 06/20/17 20:53 Patient was seen and examined at 1:30 PM 06/20/17. Exam, assessment and plan were gone over with the resident. Awaiting placement. Imer Silveira D.O.
[2017-06-20] MEDS: Multiple Vitamins Tab PO SCH (09:24)
[2017-06-21] MEDS: Multiple Vitamins Tab PO SCH (10:20)
--- NOTE | 2017-06-21 16:01 | CP.PCM.PN ---
<Matilda Rebolledo - Last Filed: 06/21/17 16:05> Subjective - Date & Time of Evaluation Date of Evaluation: 06/21/17 Time of Evaluation: 16:00 - Subjective Subjective: Medicine Progress Note: Hospitalist Service Patient seen and examined at bedside. Per nursing no acute events overnight. Patient is doing well, offers no complaints at this time. Denies headaches, dizziness, cp, palpitations, sob, abdominal pain, urinary symptoms, changes in bowel habits. Objective - Vital Signs/Intake and Output Vital Signs (last 24 hours): Temp Pulse Resp BP Pulse Ox 97.8 F 58 L 20 92/56 L 100 06/21/17 08:55 06/21/17 08:55 06/21/17 08:55 06/21/17 08:55 06/21/17 08:55 - Medications Medications: Current Medications Docusate Sodium (Colace) 100 mg PO TID [facility] Last Admin: 06/21/17 14:00 Dose: Not Given Famotidine (Pepcid) 20 mg PO DAILY [facility] Last Admin: 06/21/17 10:20 Dose: 20 mg Folic Acid (Folic Acid) 1 mg PO DAILY [facility] Last Admin: 06/21/17 10:10 Dose: 1 mg Heparin Sodium (Porcine) (Heparin) 5,000 units SC Q8 [facility] Last Admin: 06/21/17 13:23 Dose: 5,000 units Levetiracetam (Keppra) 1,000 mg PO Q12H [facility] Last Admin: 06/21/17 10:20 Dose: 1,000 mg Lorazepam (Ativan) 1 mg PO Q6H PRN PRN Reason: Seizure activity Multivitamins (Hexavitamin) 1 tab PO DAILY [facility] Last Admin: 06/21/17 10:20 Dose: 1 tab Thiamine HCl (Vitamin B1 Tab) 100 mg PO DAILY [facility] Last Admin: 06/21/17 10:20 Dose: 100 mg - Labs Labs: 06/11/17 07:13 06/11/17 07:13 - Constitutional Appears: Well, Non-toxic, No Acute Distress - Head Exam Head Exam: ATRAUMATIC, NORMAL INSPECTION, NORMOCEPHALIC - Eye Exam Eye Exam: EOMI, Normal appearance - ENT Exam ENT Exam: Mucous Membranes Moist - Neck Exam Neck Exam: Full ROM - Respiratory Exam Respiratory Exam: Clear to Ausculation Bilateral, NORMAL BREATHING PATTERN. absent: Rales, Rhonchi, Wheezes - Cardiovascular Exam Cardiovascular Exam: REGULAR RHYTHM, +S1, +S2 - GI/Abdominal Exam GI & Abdominal Exam: Soft, Normal Bowel Sounds. absent: Guarding, Rigid, Tenderness - Extremities Exam Extremities Exam: Calf Tenderness, Normal Inspection - Neurological Exam Neurological Exam: Alert, Awake, CN II-XII Intact, Normal Gait - Psychiatric Exam Psychiatric exam: Normal Affect, Normal Mood - Skin Skin Exam: Dry, Normal Color, Warm Assessment and Plan (1) Seizure Assessment & Plan: * Neurology (Dr. Lundberg) * Stable, afebrile * No recorded seizures * Will monitor labs work qweekly (mondays) * Continue Keppra 1000mg PO Q12H * Ativan 1mg Q6H prn seizure activity * EEG: abnormal study, persistent slowing superimposed with multiple movement artifact, lead artifact as well as muscle artifact. 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 global parenchymal volume loss * Head CT: No evidence of an acute intracranial hemorrhage, midline shift or mass effect is identified. Multifocal left mandibular and maxillary periodontal and -periapical lucency with retained roots and multifocal dental carious lesions. There is comminuted fracture deformity of the nasal bones. * Patient was evaluated by Physical Therapy, Occupational Therapy * Seizure precautions, aspiration precautions Status: Acute (2) Alcohol intoxication Assessment & Plan: * No current signs or symptoms of alcohol withdrawal * Continue Thiamine 100 mg PO daily * Continue Folic Acid 1 mg PO daily * Continue Multivitamins PO daily Status: Suspected (3) Change in mental status Assessment & Plan: * Folic acid 1mg PO daily * Multivitamin 1 tab PO daily * Thiamine 100mg PO daily * Completed Ativan taper completed 05/24/17 * Per latest Dr. 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 Multifocal left mandibular and maxillary periodontal and -periapical lucency with retained roots and multifocal dental carious lesions. There is comminuted fracture deformity of the nasal bones. * TSH: 1.21 * Vitamin B12: 407 * RPR: nonreactive * Hepatitis panel: negative * HIV: negative Status: Acute (4) Constipation Assessment & Plan: * Colace 100mg BID * Monitor bowel function Status: Acute (5) Prophylactic measure Assessment & Plan: * Pepcid 20mg PO Daily * Heparin 5000U SC Q8H * Patient is awaiting guardianship and assisted living; patient states that he has a cousin (Galdino Manning) in [place] however unable to provide a number or address, states that he lives in [facility]. This information was provided to . Was able to find Galdino Manning in the white pages, however there is a few to get access to contact information, currently awaiting to see if fee can be waived. * At this time, we are awaiting Director of Case Management to send letter to [facility] Flight Crew Ordnanceman who will then send letter to [facility] to start the process of Guardianship. Status: Acute <Imer Silveira - Last Filed: 06/21/17 18:55> Objective - Vital Signs/Intake and Output Vital Signs (last 24 hours): Temp Pulse Resp BP Pulse Ox 97.9 F 78 20 107/72 95 06/21/17 15:00 06/21/17 15:00 06/21/17 15:00 06/21/17 15:00 06/21/17 15:00 - Medications Medications: Current Medications Docusate Sodium (Colace) 100 mg PO BID [facility] Last Admin: 06/21/17 17:41 Dose: 100 mg Famotidine (Pepcid) 20 mg PO DAILY [facility] Last Admin: 06/21/17 10:20 Dose: 20 mg Folic Acid (Folic Acid) 1 mg PO DAILY [facility] Last Admin: 06/21/17 10:10 Dose: 1 mg Heparin Sodium (Porcine) (Heparin) 5,000 units SC Q8 [facility] Last Admin: 06/21/17 13:23 Dose: 5,000 units Levetiracetam (Keppra) 1,000 mg PO Q12H [facility] Last Admin: 06/21/17 10:20 Dose: 1,000 mg Lorazepam (Ativan) 1 mg PO Q6H PRN PRN Reason: Seizure activity Multivitamins (Hexavitamin) 1 tab PO DAILY [facility] Last Admin: 06/21/17 10:20 Dose: 1 tab Thiamine HCl (Vitamin B1 Tab) 100 mg PO DAILY [facility] Last Admin: 06/21/17 10:20 Dose: 100 mg - Labs Labs: 06/11/17 07:13 06/11/17 07:13 Attending/Attestation - Attestation I have personally seen and examined this patient.: Yes I have fully participated in the care of the patient.: Yes I have reviewed all pertinent clinical information, including history, physical exam and plan: Yes Notes (Text): 06/21/17 18:53 Patient was seen and examined at 1:15 PM 06/21/17. Exam, assessment and plan were gone over with the resident. Awaiting placement. I spoke with Landscape Specialist Melanie and there are no new updates concerning this issue. I have been explaining to patient everyday that we were awaiting for the State to assign a guardianship and then placement. Patient does not remember these conversations as everyday he asks why he was still here. Imer Silveira D.O.
[2017-06-22] MEDS: Multiple Vitamins Tab PO SCH (09:26)
--- NOTE | 2017-06-22 09:47 | CP.PCM.PN ---
<Matilda Rebolledo - Last Filed: 06/22/17 10:25> Subjective - Date & Time of Evaluation Date of Evaluation: 06/22/17 Time of Evaluation: 09:46 - Subjective Subjective: Medicine Progress Note: Hospitalist Service Patient seen and examined at bedside. Per nursing no acute events overnight. Patient is doing well, sitting up and eating breakfast. Offers no complaints. Last BM was yesterday. Denies headaches, dizziness, cp, palpitations, sob, abdominal pain, urinary symptoms. Objective - Vital Signs/Intake and Output Vital Signs (last 24 hours): Temp Pulse Resp BP Pulse Ox 97.4 F L 62 18 108/70 100 06/22/17 09:05 06/22/17 09:05 06/22/17 09:05 06/22/17 09:05 06/22/17 09:05 Intake and Output: 06/22/17 06/22/17 06:59 18:59 Output Total 400 Balance -400 - Medications Medications: Current Medications Docusate Sodium (Colace) 100 mg PO BID [facility] Last Admin: 06/22/17 09:27 Dose: 100 mg Famotidine (Pepcid) 20 mg PO DAILY [facility] Last Admin: 06/22/17 09:27 Dose: 20 mg Folic Acid (Folic Acid) 1 mg PO DAILY [facility] Last Admin: 06/22/17 09:27 Dose: 1 mg Heparin Sodium (Porcine) (Heparin) 5,000 units SC Q8 [facility] Last Admin: 06/22/17 06:11 Dose: 5,000 units Levetiracetam (Keppra) 1,000 mg PO Q12H [facility] Last Admin: 06/22/17 09:27 Dose: 1,000 mg Lorazepam (Ativan) 1 mg PO Q6H PRN PRN Reason: Seizure activity Multivitamins (Hexavitamin) 1 tab PO DAILY [facility] Last Admin: 06/22/17 09:26 Dose: 1 tab Thiamine HCl (Vitamin B1 Tab) 100 mg PO DAILY [facility] Last Admin: 06/22/17 09:26 Dose: 100 mg - Labs Labs: 06/11/17 07:13 06/11/17 07:13 - Constitutional Appears: Well, Non-toxic - Head Exam Head Exam: ATRAUMATIC, NORMAL INSPECTION, NORMOCEPHALIC - Eye Exam Eye Exam: EOMI, Normal appearance - ENT Exam ENT Exam: Mucous Membranes Moist - Neck Exam Neck Exam: Full ROM - Respiratory Exam Respiratory Exam: Clear to Ausculation Bilateral, NORMAL BREATHING PATTERN. absent: Rales, Rhonchi, Wheezes - Cardiovascular Exam Cardiovascular Exam: REGULAR RHYTHM, +S1, +S2 - GI/Abdominal Exam GI & Abdominal Exam: Soft, Normal Bowel Sounds. absent: Guarding, Rigid, Tenderness - Extremities Exam Extremities Exam: Normal Inspection. absent: Calf Tenderness - Neurological Exam Neurological Exam: Alert, Awake, CN II-XII Intact, Normal Gait - Psychiatric Exam Psychiatric exam: Normal Affect, Normal Mood Assessment and Plan (1) Seizure Assessment & Plan: * Neurology (Dr. uLndberg) * Stable, afebrile * No recorded seizures * Will monitor labs work qweekly (mondays) * Continue Keppra 1000mg PO Q12H * Ativan 1mg Q6H prn seizure activity * EEG: abnormal study, persistent slowing superimposed with multiple movement artifact, lead artifact as well as muscle artifact. 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 global parenchymal volume loss * Head CT: No evidence of an acute intracranial hemorrhage, midline shift or mass effect is identified. Multifocal left mandibular and maxillary periodontal and -periapical lucency with retained roots and multifocal dental carious lesions. There is comminuted fracture deformity of the nasal bones. * Patient was evaluated by Physical Therapy, Occupational Therapy * Seizure precautions, aspiration precautions Status: Acute (2) Alcohol intoxication Assessment & Plan: * No current signs or symptoms of alcohol withdrawal * Continue Thiamine 100 mg PO daily * Continue Folic Acid 1 mg PO daily * Continue Multivitamins PO daily Status: Suspected (3) Change in mental status Assessment & Plan: * Folic acid 1mg PO daily * Multivitamin 1 tab PO daily * Thiamine 100mg PO daily * Completed Ativan taper completed 05/24/17 * Per latest Dr. 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 Multifocal left mandibular and maxillary periodontal and -periapical lucency with retained roots and multifocal dental carious lesions. There is comminuted fracture deformity of the nasal bones. * TSH: 1.21 * Vitamin B12: 407 * RPR: nonreactive * Hepatitis panel: negative * HIV: negative Status: Acute (4) Constipation Assessment & Plan: * Colace 100mg BID * Monitor bowel function Status: Acute (5) Prophylactic measure Assessment & Plan: * Pepcid 20mg PO Daily * Heparin 5000U SC Q8H * Patient is awaiting guardianship and assisted living; patient states that he has a cousin (Galdino Manning) in [place] however unable to provide a number or address, states that he lives in [facility]. This information was provided to . Was able to find Galdino Manning in the white pages, however there is a few to get access to contact information, currently awaiting to see if fee can be waived. Per case management coordinator, No follow up has been done to retrieve cousin's phone number, * At this time, we are awaiting Director of Case Management to send letter to [facility] Outreach Educator who will then send letter to [facility] to start the process of Guardianship. Status: Acute <Imer Silveira - Last Filed: 06/22/17 19:46> Objective - Vital Signs/Intake and Output Vital Signs (last 24 hours): Temp Pulse Resp BP Pulse Ox 98 F 69 20 111/66 97 06/22/17 15:00 06/22/17 15:00 06/22/17 15:00 06/22/17 15:00 06/22/17 15:00 - Medications Medications: Current Medications Docusate Sodium (Colace) 100 mg PO BID [facility] Last Admin: 06/22/17 17:34 Dose: 100 mg Famotidine (Pepcid) 20 mg PO DAILY [facility] Last Admin: 06/22/17 09:27 Dose: 20 mg Folic Acid (Folic Acid) 1 mg PO DAILY [facility] Last Admin: 06/22/17 09:27 Dose: 1 mg Heparin Sodium (Porcine) (Heparin) 5,000 units SC Q8 [facility] Last Admin: 06/22/17 15:36 Dose: 5,000 units Levetiracetam (Keppra) 1,000 mg PO Q12H [facility] Last Admin: 01/12/18 09:27 Dose: 1,000 mg Lorazepam (Ativan) 1 mg PO Q6H PRN PRN Reason: Seizure activity Multivitamins (Hexavitamin) 1 tab PO DAILY [facility] Last Admin: 06/22/17 09:26 Dose: 1 tab Thiamine HCl (Vitamin B1 Tab) 100 mg PO DAILY [facility] Last Admin: 06/22/17 09:26 Dose: 100 mg - Labs Labs: 06/11/17 07:13 06/11/17 07:13 Attending/Attestation - Attestation I have personally seen and examined this patient.: Yes I have fully participated in the care of the patient.: Yes I have reviewed all pertinent clinical information, including history, physical exam and plan: Yes Notes (Text): 06/22/17 19:45 Patient was seen and examined at 12:30 PM Exam, assessment and plan were gone over with the resident. Imer Silveira D.O.
--- NOTE | 2017-06-23 05:45 | CP.PCM.PN ---
<Karen Leal - Last Filed: 06/23/17 05:43> Subjective - Date & Time of Evaluation Date of Evaluation: 06/23/17 Time of Evaluation: 05:43 - Subjective Subjective: Patient has been seen and examined. No overnight events. Patient offers no complaints at this time. Objective - Vital Signs/Intake and Output Vital Signs (last 24 hours): Temp Pulse Resp BP Pulse Ox 98.1 F 64 20 90/51 L 96 06/22/17 23:40 06/22/17 23:40 06/22/17 23:40 06/22/17 23:40 06/22/17 23:40 - Medications Medications: Current Medications Docusate Sodium (Colace) 100 mg PO BID [facility] Last Admin: 06/22/17 17:34 Dose: 100 mg Famotidine (Pepcid) 20 mg PO DAILY [facility] Last Admin: 06/22/17 09:27 Dose: 20 mg Folic Acid (Folic Acid) 1 mg PO DAILY [facility] Last Admin: 06/22/17 09:27 Dose: 1 mg Heparin Sodium (Porcine) (Heparin) 5,000 units SC Q8 [facility] Last Admin: 06/23/17 05:30 Dose: 5,000 units Levetiracetam (Keppra) 1,000 mg PO Q12H [facility] Last Admin: 06/22/17 22:14 Dose: 1,000 mg Lorazepam (Ativan) 1 mg PO Q6H PRN PRN Reason: Seizure activity Multivitamins (Hexavitamin) 1 tab PO DAILY [facility] Last Admin: 06/22/17 09:26 Dose: 1 tab Thiamine HCl (Vitamin B1 Tab) 100 mg PO DAILY [facility] Last Admin: 06/22/17 09:26 Dose: 100 mg - Labs Labs: 06/11/17 07:13 06/11/17 07:13 - Additional Findings Additional findings: - Constitutional Appears: Well, Non-toxic - Head Exam Head Exam: ATRAUMATIC, NORMAL INSPECTION, NORMOCEPHALIC - Eye Exam Eye Exam: EOMI, Normal appearance - ENT Exam ENT Exam: Mucous Membranes Moist - Neck Exam Neck Exam: Full ROM - Respiratory Exam Respiratory Exam: Clear to Ausculation Bilateral, NORMAL BREATHING PATTERN. absent: Rales, Rhonchi, Wheezes - Cardiovascular Exam Cardiovascular Exam: REGULAR RHYTHM, +S1, +S2 - GI/Abdominal Exam GI & Abdominal Exam: Soft, Normal Bowel Sounds. absent: Guarding, Rigid, Tenderness - Extremities Exam Extremities Exam: Normal Inspection. absent: Calf Tenderness - Neurological Exam Neurological Exam: Alert, Awake, CN II-XII Intact, Normal Gait - Psychiatric Exam Psychiatric exam: Normal Affect, Normal Mood Assessment and Plan - Assessment and Plan (Free Text) Plan: (1) Seizure Assessment & Plan: * Neurology (Dr. Lundberg) * Stable, afebrile * No recorded seizures * Will monitor labs work qweekly (mondays) * Continue Keppra 1000mg PO Q12H * Ativan 1mg Q6H prn seizure activity * EEG: abnormal study, persistent slowing superimposed with multiple movement artifact, lead artifact as well as muscle artifact. 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 global parenchymal volume loss * Head CT: No evidence of an acute intracranial hemorrhage, midline shift or mass effect is identified. Multifocal left mandibular and maxillary periodontal and -periapical lucency with retained roots and multifocal dental carious lesions. There is comminuted fracture deformity of the nasal bones. * Patient was evaluated by Physical Therapy, Occupational Therapy * Seizure precautions, aspiration precautions Status: Acute (2) Alcohol intoxication Assessment & Plan: * No current signs or symptoms of alcohol withdrawal * Continue Thiamine 100 mg PO daily * Continue Folic Acid 1 mg PO daily * Continue Multivitamins PO daily Status: Suspected (3) Change in mental status Assessment & Plan: * Folic acid 1mg PO daily * Multivitamin 1 tab PO daily * Thiamine 100mg PO daily * Completed Ativan taper completed 05/24/17 * Per latest Dr. 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 Multifocal left mandibular and maxillary periodontal and -periapical lucency with retained roots and multifocal dental carious lesions. There is comminuted fracture deformity of the nasal bones. * TSH: 1.21 * Vitamin B12: 407 * RPR: nonreactive * Hepatitis panel: negative * HIV: negative Status: Acute (4) Constipation Assessment & Plan: * Colace 100mg BID * Monitor bowel function Status: Acute (5) Prophylactic measure Assessment & Plan: * Pepcid 20mg PO Daily * Heparin 5000U SC Q8H * Patient is awaiting guardianship and assisted living; patient states that he has a cousin (Galdino Manning) in [place] however unable to provide a number or address, states that he lives in [facility]. This information was provided to SW. Was able to find Galdino Manning in the white pages, however there is a few to get access to contact information, currently awaiting to see if fee can be waived. Per pillowcase folder, No follow up has been done to retrieve cousin's phone number, * At this time, we are awaiting Director of Case Management to send letter to [facility] Stack Attendant who will then send letter to [facility] to start the process of Guardianship. Status: Acute <Imer Silveira - Last Filed: 06/23/17 17:11> Objective - Vital Signs/Intake and Output Vital Signs (last 24 hours): Temp Pulse Resp BP Pulse Ox 97.7 F 73 20 111/74 100 06/23/17 15:13 06/23/17 15:13 06/23/17 15:13 06/23/17 15:13 06/23/17 15:13 Intake and Output: 06/23/17 06/23/17 06:59 18:59 Intake Total 0 Balance 0 - Medications Medications: Current Medications Docusate Sodium (Colace) 100 mg PO BID [facility] Last Admin: 06/23/17 09:22 Dose: 100 mg Famotidine (Pepcid) 20 mg PO DAILY [facility] Last Admin: 06/23/17 09:22 Dose: 20 mg Folic Acid (Folic Acid) 1 mg PO DAILY [facility] Last Admin: 06/23/17 09:22 Dose: 1 mg Levetiracetam (Keppra) 1,000 mg PO Q12H [facility] Last Admin: 06/23/17 09:23 Dose: 1,000 mg Lorazepam (Ativan) 1 mg PO Q6H PRN PRN Reason: Seizure activity Multivitamins (Hexavitamin) 1 tab PO DAILY [facility] Last Admin: 06/23/17 09:22 Dose: 1 tab Thiamine HCl (Vitamin B1 Tab) 100 mg PO DAILY [facility] Last Admin: 06/23/17 09:22 Dose: 100 mg - Labs Labs: 06/11/17 07:13 06/11/17 07:13 Attending/Attestation - Attestation I have personally seen and examined this patient.: Yes I have fully participated in the care of the patient.: Yes I have reviewed all pertinent clinical information, including history, physical exam and plan: Yes Notes (Text): 06/23/17 17:07 Patient was seen and examined at 11:30 AM. Exam, assessment and plan were gone over with the resident. Imer Silveira D.O.
[2017-06-23] MEDS: Multiple Vitamins Tab PO SCH (09:22)
--- NOTE | 2017-06-24 01:37 | CP.PCM.PN ---
<Karen Leal - Last Filed: 06/24/17 01:36> Subjective - Date & Time of Evaluation Date of Evaluation: 06/24/17 Time of Evaluation: 01:36 - Subjective Subjective: Patient has been seen and examined. No overnight events. Patient offers no complaints at this time. Objective - Vital Signs/Intake and Output Vital Signs (last 24 hours): Temp Pulse Resp BP Pulse Ox 97.5 F L 58 L 20 92/51 L 96 06/23/17 23:30 06/23/17 23:30 06/23/17 23:30 06/23/17 23:30 06/23/17 23:30 Intake and Output: 06/23/17 06/24/17 18:59 06:59 Intake Total 0 Balance 0 - Medications Medications: Current Medications Docusate Sodium (Colace) 100 mg PO BID [facility] Last Admin: 06/23/17 17:28 Dose: 100 mg Famotidine (Pepcid) 20 mg PO DAILY [facility] Folic Acid (Folic Acid) 1 mg PO DAILY [facility] Levetiracetam (Keppra) 1,000 mg PO Q12H [facility] Last Admin: 06/23/17 21:24 Dose: 1,000 mg Lorazepam (Ativan) 1 mg PO Q6H PRN PRN Reason: Seizure activity Multivitamins (Hexavitamin) 1 tab PO DAILY [facility] Thiamine HCl (Vitamin B1 Tab) 100 mg PO DAILY [facility] - Labs Labs: 06/11/17 07:13 06/11/17 07:13 - Additional Findings Additional findings: - Constitutional Appears: Well, Non-toxic - Head Exam Head Exam: ATRAUMATIC, NORMAL INSPECTION, NORMOCEPHALIC - Eye Exam Eye Exam: EOMI, Normal appearance - ENT Exam ENT Exam: Mucous Membranes Moist - Neck Exam Neck Exam: Full ROM - Respiratory Exam Respiratory Exam: Clear to Ausculation Bilateral, NORMAL BREATHING PATTERN. absent: Rales, Rhonchi, Wheezes - Cardiovascular Exam Cardiovascular Exam: REGULAR RHYTHM, +S1, +S2 - GI/Abdominal Exam GI & Abdominal Exam: Soft, Normal Bowel Sounds. absent: Guarding, Rigid, Tenderness - Extremities Exam Extremities Exam: Normal Inspection. absent: Calf Tenderness - Neurological Exam Neurological Exam: Alert, Awake, CN II-XII Intact, Normal Gait - Psychiatric Exam Psychiatric exam: Normal Affect, Normal Mood Assessment and Plan - Assessment and Plan (Free Text) Plan: (1) Seizure Assessment & Plan: * Neurology (Dr. Lundberg) * Stable, afebrile * No recorded seizures * Will monitor labs work qweekly (mondays) * Continue Keppra 1000mg PO Q12H * Ativan 1mg Q6H prn seizure activity * EEG: abnormal study, persistent slowing superimposed with multiple movement artifact, lead artifact as well as muscle artifact. 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 global parenchymal volume loss * Head CT: No evidence of an acute intracranial hemorrhage, midline shift or mass effect is identified. Multifocal left mandibular and maxillary periodontal and -periapical lucency with retained roots and multifocal dental carious lesions. There is comminuted fracture deformity of the nasal bones. * Patient was evaluated by Physical Therapy, Occupational Therapy * Seizure precautions, aspiration precautions Status: Acute (2) Alcohol intoxication Assessment & Plan: * No current signs or symptoms of alcohol withdrawal * Continue Thiamine 100 mg PO daily * Continue Folic Acid 1 mg PO daily * Continue Multivitamins PO daily Status: Suspected (3) Change in mental status Assessment & Plan: * Folic acid 1mg PO daily * Multivitamin 1 tab PO daily * Thiamine 100mg PO daily * Completed Ativan taper completed 05/24/17 * Per latest Dr. 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 Multifocal left mandibular and maxillary periodontal and -periapical lucency with retained roots and multifocal dental carious lesions. There is comminuted fracture deformity of the nasal bones. * TSH: 1.21 * Vitamin B12: 407 * RPR: nonreactive * Hepatitis panel: negative * HIV: negative Status: Acute (4) Constipation Assessment & Plan: * Colace 100mg BID * Monitor bowel function Status: Acute (5) Prophylactic measure Assessment & Plan: * Pepcid 20mg PO Daily * Heparin 5000U SC Q8H * Patient is awaiting guardianship and assisted living; patient states that he has a cousin (Galdino Manning) in [place] however unable to provide a number or address, states that he lives in [facility]. This information was provided to SW. Was able to find Galdino Manning in the white pages, however there is a few to get access to contact information, currently awaiting to see if fee can be waived. Per rehabilitation caseworker, No follow up has been done to retrieve cousin's phone number, * At this time, we are awaiting Director of Case Management to send letter to [facility] Card Seller who will then send letter to [facility] to start the process of Guardianship. Status: Acute <Imer Silveira - Last Filed: 06/24/17 20:30> Objective - Vital Signs/Intake and Output Vital Signs (last 24 hours): Temp Pulse Resp BP Pulse Ox 97.2 F L 96 H 20 103/68 99 06/24/17 15:31 06/24/17 15:31 06/24/17 15:31 06/24/17 15:31 06/24/17 15:31 - Medications Medications: Current Medications Docusate Sodium (Colace) 100 mg PO BID [facility] Last Admin: 06/24/17 17:30 Dose: 100 mg Famotidine (Pepcid) 20 mg PO DAILY [facility] Last Admin: 06/24/17 09:22 Dose: 20 mg Folic Acid (Folic Acid) 1 mg PO DAILY [facility] Last Admin: 06/24/17 09:22 Dose: 1 mg Levetiracetam (Keppra) 1,000 mg PO Q12H [facility] Last Admin: 06/24/17 09:22 Dose: 1,000 mg Lorazepam (Ativan) 1 mg PO Q6H PRN PRN Reason: Seizure activity Multivitamins (Hexavitamin) 1 tab PO DAILY [facility] Last Admin: 06/24/17 09:30 Dose: 1 tab Thiamine HCl (Vitamin B1 Tab) 100 mg PO DAILY [facility] Last Admin: 06/24/17 09:22 Dose: 100 mg - Labs Labs: 06/11/17 07:13 06/11/17 07:13 Attending/Attestation - Attestation I have personally seen and examined this patient.: Yes I have fully participated in the care of the patient.: Yes I have reviewed all pertinent clinical information, including history, physical exam and plan: Yes Notes (Text): 06/24/17 20:29 Patient was seen and examined at 8:15 AM 06/24/17. Awaiting placement. Labs should be performed once a week on Mondays. Imer Silveira D.O.
[2017-06-24] MEDS: Multiple Vitamins Tab PO SCH (09:30)
[2017-06-25 07:47] LABS: BASO % 0.6 % (0.0-2.0); EOS # 0.2 K/uL (0.0-0.7); EOS % 2.7 % (0.0-4.0); HEMOGLOBIN 14.5 g/dL (12.0-18.0); LYMPH # 1.9 K/uL (1.0-4.3); LYMPH % 35.1 % (20.0-40.0); MEAN CELL VOLUME 90.3 fL (80.0-94.0); MEAN CORPUSCULAR HEMOGLOBIN 30.4 pg (27.0-31.0); MEAN CORPUSCULAR HGB CONC 33.7 g/dL (33.0-37.0); MEAN PLATELET VOLUME 10.5 fL (7.2-11.7); MONO # 0.4 K/uL (0.0-0.8); MONO % 7.8 % (0.0-10.0); NEUT # 2.9 K/uL (1.8-7.0); NEUT % 53.8 % (50.0-75.0); RBC 4.78 Mil/uL (4.40-5.90); RED CELL DISTRIBUTION WIDTH 14.2 % (11.5-14.5); WHITE BLOOD COUNT 5.5 K/uL (4.8-10.8)
[2017-06-25 08:25] LABS: ALB/GLOB RATIO 1.5 (1.0-2.1); ALBUMIN 4.1 g/dL (3.5-5.0); ALT/SGPT 28 U/L (21-72); AST/SGOT 21 U/L (17-59); BLOOD UREA NITROGEN 15 mg/dL (9-20); CALCIUM 8.9 mg/dl (8.6-10.4); GFR AFRICAN-AMERICAN > 60; GFR NON-AFRICAN AMERICAN > 60
[2017-06-25] MEDS: Multiple Vitamins Tab PO SCH (10:23)
--- NOTE | 2017-06-25 13:40 | CP.PCM.PN ---
<Gigi Deleon - Last Filed: 06/25/17 13:46> Subjective - Date & Time of Evaluation Date of Evaluation: 06/25/17 Time of Evaluation: 09:38 - Subjective Subjective: Medicine Progress Note for Dr. Echevarria's Service, Gigi Deleon PGY1 Entry Level Paralegal Patient seen and examined at bedside. Per nursing no acute events occurred overnight. The patient feeling better today. The patient is tolerating diet with no issues. Patient reports one bowel movement yesterday and is able to urinate with no problem. The patient denies any chest pain, shortness of breath , nausea, vomiting, fevers, chills, abdominal pain, dizziness, syncopal episodes , or any other complaints. Objective - Vital Signs/Intake and Output Vital Signs (last 24 hours): Temp Pulse Resp BP Pulse Ox 97.0 F L 62 20 105/72 100 06/25/17 08:15 06/25/17 08:15 06/25/17 08:15 06/25/17 08:15 06/25/17 08:15 Intake and Output: 06/25/17 06/25/17 06:59 18:59 Output Total 350 Balance -350 - Medications Medications: Current Medications Docusate Sodium (Colace) 100 mg PO BID [facility] Last Admin: 06/25/17 10:22 Dose: 100 mg Famotidine (Pepcid) 20 mg PO DAILY [facility] Last Admin: 06/25/17 10:23 Dose: 20 mg Folic Acid (Folic Acid) 1 mg PO DAILY [facility] Last Admin: 06/25/17 10:22 Dose: 1 mg Levetiracetam (Keppra) 1,000 mg PO Q12H [facility] Last Admin: 06/25/17 10:23 Dose: 1,000 mg Lorazepam (Ativan) 1 mg PO Q6H PRN PRN Reason: Seizure activity Multivitamins (Hexavitamin) 1 tab PO DAILY [facility] Last Admin: 06/25/17 10:23 Dose: 1 tab Thiamine HCl (Vitamin B1 Tab) 100 mg PO DAILY [facility] Last Admin: 06/25/17 10:23 Dose: 100 mg - Labs Labs: 06/25/17 07:26 06/25/17 07:26 - Head Exam Head Exam: ATRAUMATIC, NORMAL INSPECTION, NORMOCEPHALIC - Eye Exam Eye Exam: EOMI, Normal appearance, PERRL. absent: Periorbital tenderness Pupil Exam: NORMAL ACCOMODATION, PERRL. absent: Irregular, Unequal - ENT Exam ENT Exam: Mucous Membranes Moist, Normal Oropharynx - Neck Exam Neck Exam: Full ROM, Normal Inspection. absent: Lymphadenopathy, Meningismus, Thyromegaly - Respiratory Exam Respiratory Exam: Clear to Ausculation Bilateral, NORMAL BREATHING PATTERN. absent: Chest Wall Tenderness, Prolonged Expiratory Phase, Respiratory Distress - Cardiovascular Exam Cardiovascular Exam: REGULAR RHYTHM, RRR, +S1, +S2. absent: Gallop, Rubs - GI/Abdominal Exam GI & Abdominal Exam: Soft, Normal Bowel Sounds. absent: Tenderness, Hyperactive Bowel Sounds - Extremities Exam Extremities Exam: Full ROM, Normal Inspection. absent: Joint Swelling, Pedal Edema, Tenderness - Back Exam Back Exam: NORMAL INSPECTION. absent: CVA tenderness (L), CVA tenderness (R), Full ROM, paraspinal tenderness - Neurological Exam Neurological Exam: Alert, Awake, Normal Gait - Psychiatric Exam Psychiatric exam: Normal Affect, Normal Mood - Skin Skin Exam: Dry, Intact, Normal Color, Warm Assessment and Plan - Assessment and Plan (Free Text) Assessment: 46 year old male with a past medical history of seziures, and alcohol abuse who was admitted for altered mental status. Plan: Seizure -Neurology (Dr. Lundberg) -Stable, afebrile -No recorded seizures -Will monitor labs work qweekly (mondays) -Continue Keppra 1000mg PO Q12H -Ativan 1mg Q6H prn seizure activity -EEG: abnormal study, persistent slowing superimposed with multiple movement artifact, lead artifact as well as muscle artifact. During studing, no electroencephalographic paroxysmal activities noted -Brain MRI: no acute intracranial abnormality; bilateral inferior front and left anterior frontal lobe cystic encephalomalacia; mod. global parenchymal volume loss -Head CT: No evidence of an acute intracranial hemorrhage, midline shift or mass effect is identified. Multifocal left mandibular and maxillary periodontal and -periapical lucency with retained roots and multifocal dental carious lesions. There is comminuted fracture deformity of the nasal bones. -Patient was evaluated by Physical Therapy, Occupational Therapy -Continue Seizure precautions, aspiration precautions Alcohol intoxication -No current signs or symptoms of alcohol withdrawal -Continue Thiamine 100 mg PO daily -Continue Folic Acid 1 mg PO daily -Continue Multivitamins PO daily Change in mental status -Folic acid 1mg PO daily -Multivitamin 1 tab PO daily -Thiamine 100mg PO daily -Completed Ativan taper completed 05/24/17 * Per latest Dr. 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 Multifocal left mandibular and maxillary periodontal and -periapical lucency with retained roots and multifocal dental carious lesions. There is comminuted fracture deformity of the nasal bones. * TSH: 1.21 * Vitamin B12: 407 * RPR: nonreactive * Hepatitis panel: negative * HIV: negative Constipation -Continue Colace 100mg BID -Patient reports one bowel movement yesterday of normal consistency. Will continue to monitor bowel function. Prophylactic measure * Pepcid 20mg PO Daily * Patient is awaiting guardianship and assisted living; patient states that he has a cousin (Galdino Manning) in [place] however unable to provide a number or address, states that he lives in [facility]. This information was provided to . Was able to find Galdino Mnaning in the white pages, however there is a few to get access to contact information, currently awaiting to see if fee can be waived. Per pillowcase cutter, No follow up has been done to retrieve cousin's phone number, * At this time, we are awaiting Director of Case Management to send letter to [facility] Spr[employer] Dry Operator who will then send letter to [facility] to start the process of Guardianship. Will continue to follow situation regarding placement. <Juliet Echevarria V - Last Filed: 06/26/17 07:37> Objective - Vital Signs/Intake and Output Vital Signs (last 24 hours): Temp Pulse Resp BP Pulse Ox 98.1 F 74 20 102/63 97 06/25/17 23:30 06/25/17 23:30 06/25/17 23:30 06/26/17 05:00 06/25/17 23:30 - Medications Medications: Current Medications Docusate Sodium (Colace) 100 mg PO BID [facility] Last Admin: 06/25/17 17:17 Dose: 100 mg Famotidine (Pepcid) 20 mg PO DAILY [facility] Last Admin: 06/25/17 10:23 Dose: 20 mg Folic Acid (Folic Acid) 1 mg PO DAILY [facility] Last Admin: 06/25/17 10:22 Dose: 1 mg Levetiracetam (Keppra) 1,000 mg PO Q12H [facility] Last Admin: 06/25/17 22:07 Dose: 1,000 mg Lorazepam (Ativan) 1 mg PO Q6H PRN PRN Reason: Seizure activity Multivitamins (Hexavitamin) 1 tab PO DAILY [facility] Last Admin: 06/25/17 10:23 Dose: 1 tab Thiamine HCl (Vitamin B1 Tab) 100 mg PO DAILY [facility] Last Admin: 06/25/17 10:23 Dose: 100 mg - Labs Labs: 06/25/17 07:26 06/25/17 07:26 Attending/Attestation - Attestation I have personally seen and examined this patient.: Yes I have fully participated in the care of the patient.: Yes I have reviewed all pertinent clinical information, including history, physical exam and plan: Yes Notes (Text): This is a late computer entry for 06/25/17. Patient seen, examined, and case discussed with day-time resident. No acute changes. Continue current management. Will need to coordinate with case management and social studies department chair in regards to placement. As addendum to resident physical: CN 2-12 grossly intact, negative Babinski sign , strength upper and lower 5/5, speaks in [place] Citizen Assessment/Plan (1) Seizure-->Stable; Chronic Assessment & Plan: * Neurology (Dr. Lundberg) on board-->help appreciated * Had recommend if stable for 24hour period for discharge and should have follow-up visit as outpatient * Stable, afebrile * Continue to monitor on telemetry * Continue Keppra 1000mg PO Q12H * Ativan 1mg Q6H prn seizure activity * F/U phenytoin level * EEG: abnormal study, persistent slowing superimposed with multiple movement artifact, lead artifact as well as muscle artifact. 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 global parenchymal volume loss * Head CT: No evidence of an acute intracranial hemorrhage, midline shift or mass effect is identified. Multifocal left mandibular and maxillary periodontal and -periapical lucency with retained roots and multifocal dental carious lesions. There is comminuted fracture deformity of the nasal bones. * Physical Therapy, Occupational Therapy ordered * Seizure precautions, aspiration precautions (2) Alcohol intoxication-->Resolved Assessment & Plan: * Ativan taper completed 05/24/17 * No current signs or symptoms of alcohol withdrawal * Continue Thiamine 100 mg PO daily * Continue Folic Acid 1 mg PO daily * Continue Multivitamins PO daily * 05/21 ER visit for alcohol abuse/sever intoxication Status: Suspected (3) Change in mental status Assessment & Plan: * Contributing: alcohol abuse, seizure, concern for Wernicke-Korsakoff? * Folic acid 1mg PO daily * MVI 1 tab PO daily * Thiamine 100mg PO daily * Completed Ativan taper completed 05/24/17 * Per latest Dr. 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 global parenchymal volume loss * Head CT: No evidence of an acute intracranial hemorrhage, midline shift or mass effect is identified. Multifocal left mandibular and maxillary periodontal and -periapical lucency with retained roots and multifocal dental carious lesions. There is comminuted fracture deformity of the nasal bones. * TSH: 1.21 * Vitamin B12: 407 * RPR: nonreactive * Hepatitis panel: negative * HIV: negative (4) Prophylactic measure Assessment & Plan: * Pepcid 20mg PO Daily * Heparin 5000U SC Q12H * F/u with social and case management regarding discharge planning Status: Acute Disposition: Per psych, patient does not have any capacity to make any medical decisions. Will need to follow-up with social and case management in regards to discharge planning. Pending guardianship. Case management to attempt to follow-up with patient's cousin in [place] if he wants to be involved in care Will need to follow-up to see if fee to access patient's cousin information will be approved by case management
[2017-06-26] MEDS: Multiple Vitamins Tab PO SCH (09:51)
--- NOTE | 2017-06-26 19:07 | CP.PCM.PN ---
<Gigi Deleon - Last Filed: 06/26/17 19:43> Subjective - Date & Time of Evaluation Date of Evaluation: 06/26/17 Time of Evaluation: 08:07 - Subjective Subjective: Medicine Progress Note for Dr. Echevarria's Service, Gigi Deleon PGY1 Curtain Drier Patient seen and examined at bedside. Per nursing no acute events occurred overnight. The patient feeling ok today The patient is tolerating diet with no issues. Patient reports passing his bowel and urine with no issue. The patient denies any chest pain, shortness of breath, numbness or tingling in the hands or feet, nausea, vomiting, fevers, chills, abdominal pain, dizziness, syncopal episodes, pre-syncopal episodes or any other complaints. Objective - Vital Signs/Intake and Output Vital Signs (last 24 hours): Temp Pulse Resp BP Pulse Ox 97.8 F 72 20 116/80 100 06/26/17 15:26 06/26/17 15:26 06/26/17 15:26 06/26/17 15:26 06/26/17 15:26 - Medications Medications: Current Medications Docusate Sodium (Colace) 100 mg PO BID [facility] Last Admin: 06/26/17 17:20 Dose: 100 mg Famotidine (Pepcid) 20 mg PO DAILY [facility] Last Admin: 06/26/17 09:51 Dose: 20 mg Folic Acid (Folic Acid) 1 mg PO DAILY [facility] Last Admin: 06/26/17 09:52 Dose: 1 mg Levetiracetam (Keppra) 1,000 mg PO Q12H [facility] Last Admin: 06/26/17 09:52 Dose: 1,000 mg Lorazepam (Ativan) 1 mg PO Q6H PRN PRN Reason: Seizure activity Multivitamins (Hexavitamin) 1 tab PO DAILY [facility] Last Admin: 06/26/17 09:51 Dose: 1 tab Thiamine HCl (Vitamin B1 Tab) 100 mg PO DAILY [facility] Last Admin: 06/26/17 09:52 Dose: 100 mg - Labs Labs: 06/25/17 07:26 06/25/17 07:26 - Head Exam Head Exam: ATRAUMATIC, NORMAL INSPECTION, NORMOCEPHALIC - Eye Exam Eye Exam: EOMI, Normal appearance, PERRL. absent: Periorbital tenderness Pupil Exam: NORMAL ACCOMODATION, PERRL. absent: Irregular, Unequal - ENT Exam ENT Exam: Mucous Membranes Moist, Normal Exam, Normal Oropharynx - Neck Exam Neck Exam: Normal Inspection. absent: Lymphadenopathy, Thyromegaly - Respiratory Exam Respiratory Exam: Clear to Ausculation Bilateral, NORMAL BREATHING PATTERN. absent: Chest Wall Tenderness, Prolonged Expiratory Phase, Respiratory Distress - Cardiovascular Exam Cardiovascular Exam: REGULAR RHYTHM, +S1, +S2 - GI/Abdominal Exam GI & Abdominal Exam: Soft, Normal Bowel Sounds. absent: Rigid, Hyperactive Bowel Sounds - Extremities Exam Extremities Exam: Full ROM, Normal Inspection. absent: Joint Swelling, Pedal Edema, Tenderness - Back Exam Back Exam: NORMAL INSPECTION. absent: CVA tenderness (L), CVA tenderness (R), paraspinal tenderness - Neurological Exam Neurological Exam: Alert, Awake, CN II-XII Intact Additional comments: CN 2-12 grossly intact, negative Babinski sign, strength upper and lower 5/5 - Psychiatric Exam Psychiatric exam: Normal Affect, Normal Mood - Skin Skin Exam: Dry, Intact, Normal Color, Warm Assessment and Plan - Assessment and Plan (Free Text) Plan: Seizure -Neurology (Dr. Lundberg) -Stable, afebrile -No recorded seizures -Will monitor labs work qweekly (mondays) -Continue Keppra 1000mg PO Q12H -Ativan 1mg Q6H prn seizure activity -EEG: abnormal study, persistent slowing superimposed with multiple movement artifact, lead artifact as well as muscle artifact. During studing, no electroencephalographic paroxysmal activities noted -Brain MRI: no acute intracranial abnormality; bilateral inferior front and left anterior frontal lobe cystic encephalomalacia; mod. global parenchymal volume loss -Head CT: No evidence of an acute intracranial hemorrhage, midline shift or mass effect is identified. Multifocal left mandibular and maxillary periodontal and -periapical lucency with retained roots and multifocal dental carious lesions. There is comminuted fracture deformity of the nasal bones. -Patient was evaluated by Physical Therapy, Occupational Therapy -Continue Seizure precautions, aspiration precautions Alcohol intoxication -No current signs or symptoms of alcohol withdrawal -Continue Thiamine 100 mg PO daily -Continue Folic Acid 1 mg PO daily -Continue Multivitamins PO daily Change in mental status -Folic acid 1mg PO daily -Multivitamin 1 tab PO daily -Thiamine 100mg PO daily -Completed Ativan taper completed 12/14/17 * Per latest Dr. 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 Multifocal left mandibular and maxillary periodontal and -periapical lucency with retained roots and multifocal dental carious lesions. There is comminuted fracture deformity of the nasal bones. * TSH: 1.21 * Vitamin B12: 407 * RPR: nonreactive * Hepatitis panel: negative * HIV: negative Constipation -Continue Colace 100mg BID -Patient reports one bowel movement today of normal consistency. Will continue to monitor bowel function. Prophylactic measure * Pepcid 20mg PO Daily * Patient is awaiting guardianship and assisted living; patient states that he has a cousin (Galdino Manning) in [place] however unable to provide a number or address, states that he lives in [facility]. This information was provided to . Was able to find Galdino Manning in the white pages, however there is a few to get access to contact information, currently awaiting to see if fee can be waived. Per shoe parts caser, No follow up has been done to retrieve cousin's phone number, * At this time, we are awaiting Director of Case Management to send letter to [facility] Audience Development Manager who will then send letter to [facility] to start the process of Guardianship. Followed up with Case management and we are still awaiting further development. <Juliet Echevarria V - Last Filed: 06/26/17 21:05> Objective - Vital Signs/Intake and Output Vital Signs (last 24 hours): Temp Pulse Resp BP Pulse Ox 97.8 F 72 20 116/80 100 06/26/17 15:26 06/26/17 15:26 06/26/17 15:26 06/26/17 15:26 06/26/17 15:26 - Medications Medications: Current Medications Docusate Sodium (Colace) 100 mg PO BID [facility] Last Admin: 06/26/17 17:20 Dose: 100 mg Famotidine (Pepcid) 20 mg PO DAILY [facility] Last Admin: 06/26/17 09:51 Dose: 20 mg Folic Acid (Folic Acid) 1 mg PO DAILY [facility] Last Admin: 06/26/17 09:52 Dose: 1 mg Levetiracetam (Keppra) 1,000 mg PO Q12H [facility] Last Admin: 06/26/17 09:52 Dose: 1,000 mg Lorazepam (Ativan) 1 mg PO Q6H PRN PRN Reason: Seizure activity Multivitamins (Hexavitamin) 1 tab PO DAILY [facility] Last Admin: 06/26/17 09:51 Dose: 1 tab Thiamine HCl (Vitamin B1 Tab) 100 mg PO DAILY [facility] Last Admin: 06/26/17 09:52 Dose: 100 mg - Labs Labs: 06/25/17 07:26 06/25/17 07:26 Attending/Attestation - Attestation I have personally seen and examined this patient.: Yes I have fully participated in the care of the patient.: Yes I have reviewed all pertinent clinical information, including history, physical exam and plan: Yes Notes (Text): Patient seen, examined, and case discussed with day-time resident. No acute changes. Continue current management. Will need to coordinate with case management and mental health social worker in regards to placement. As addendum to resident physical: CN 2-12 grossly intact, negative Babinski sign , strength upper and lower 5/5, speaks in [place] Assessment/Plan (1) Seizure-->Stable; Chronic Assessment & Plan: * Neurology (Dr. Lundberg) on board-->help appreciated * Had recommend if stable for 24hour period for discharge and should have follow-up visit as outpatient * Stable, afebrile * Continue to monitor on telemetry * Continue Keppra 1000mg PO Q12H * Ativan 1mg Q6H prn seizure activity * F/U phenytoin level * EEG: abnormal study, persistent slowing superimposed with multiple movement artifact, lead artifact as well as muscle artifact. 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 global parenchymal volume loss * Head CT: No evidence of an acute intracranial hemorrhage, midline shift or mass effect is identified. Multifocal left mandibular and maxillary periodontal and -periapical lucency with retained roots and multifocal dental carious lesions. There is comminuted fracture deformity of the nasal bones. * Physical Therapy, Occupational Therapy ordered * Seizure precautions, aspiration precautions (2) Alcohol intoxication-->Resolved Assessment & Plan: * Ativan taper completed 05/24/17 * No current signs or symptoms of alcohol withdrawal * Continue Thiamine 100 mg PO daily * Continue Folic Acid 1 mg PO daily * Continue Multivitamins PO daily * 05/21 ER visit for alcohol abuse/sever intoxication Status: Suspected (3) Change in mental status Assessment & Plan: * Contributing: alcohol abuse, seizure, concern for Wernicke-Korsakoff? * Folic acid 1mg PO daily * MVI 1 tab PO daily * Thiamine 100mg PO daily * Completed Ativan taper completed 05/24/17 * Per latest Dr. 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 global parenchymal volume loss * Head CT: No evidence of an acute intracranial hemorrhage, midline shift or mass effect is identified. Multifocal left mandibular and maxillary periodontal and -periapical lucency with retained roots and multifocal dental carious lesions. There is comminuted fracture deformity of the nasal bones. * TSH: 1.21 * Vitamin B12: 407 * RPR: nonreactive * Hepatitis panel: negative * HIV: negative (4) Prophylactic measure Assessment & Plan: * Pepcid 20mg PO Daily * Ambulatory * F/u with social and case management regarding discharge planning Status: Acute Disposition: Per psych, patient does not have any capacity to make any medical decisions. Will need to follow-up with social and case management in regards to discharge planning. Pending guardianship. Case management to attempt to follow-up with patient's cousin in [place] if he wants to be involved in care Will need to follow-up to see if fee to access patient's cousin information will be approved by case management. No new notes from social/case since 06/22/17
[2017-06-27] MEDS: Multiple Vitamins Tab PO SCH (09:56)
--- NOTE | 2017-06-27 11:00 | CP.PCM.PN ---
Subjective - Date & Time of Evaluation Date of Evaluation: 06/27/17 Time of Evaluation: 08:59 - Subjective Subjective: Medicine Progress Note for Dr. Echevarria's Service, Gigi Deleon PGY1 Tool And Die Machinist Patient seen and examined at bedside. Per nursing no acute events occurred overnight. The patient feeling ok today . The patient reports feeling cold today. The patient is tolerating diet with no issues. Patient reports passing his bowels and urine with no issue. The patient denies any chest pain, shortness of breath, numbness or tingling in the hands or feet, nausea, vomiting , fevers, chills, abdominal pain, dizziness, syncopal episodes, pre-syncopal episodes or any other complaints. Objective - Vital Signs/Intake and Output Vital Signs (last 24 hours): Temp Pulse Resp BP Pulse Ox 97.4 F L 56 L 20 97/60 L 99 06/27/17 07:00 06/27/17 07:00 06/27/17 07:00 06/27/17 07:00 06/27/17 07:00 Intake and Output: 06/27/17 06/27/17 06:59 18:59 Intake Total 200 Output Total 300 Balance -100 - Medications Medications: Current Medications Docusate Sodium (Colace) 100 mg PO BID [facility] Last Admin: 06/27/17 09:58 Dose: 100 mg Famotidine (Pepcid) 20 mg PO DAILY [facility] Last Admin: 06/27/17 09:56 Dose: 20 mg Folic Acid (Folic Acid) 1 mg PO DAILY [facility] Last Admin: 06/27/17 09:56 Dose: 1 mg Levetiracetam (Keppra) 1,000 mg PO Q12H [facility] Last Admin: 06/27/17 09:56 Dose: 1,000 mg Lorazepam (Ativan) 1 mg PO Q6H PRN PRN Reason: Seizure activity Multivitamins (Hexavitamin) 1 tab PO DAILY [facility] Last Admin: 06/27/17 09:56 Dose: 1 tab Thiamine HCl (Vitamin B1 Tab) 100 mg PO DAILY [facility] Last Admin: 06/27/17 09:56 Dose: 100 mg - Labs Labs: 06/25/17 07:26 06/25/17 07:26 - Head Exam Head Exam: ATRAUMATIC, NORMAL INSPECTION, NORMOCEPHALIC - Eye Exam Eye Exam: EOMI, Normal appearance, PERRL Pupil Exam: NORMAL ACCOMODATION, PERRL. absent: Irregular, Unequal - ENT Exam ENT Exam: Mucous Membranes Moist, Normal Oropharynx - Neck Exam Neck Exam: Normal Inspection. absent: Lymphadenopathy, Thyromegaly - Respiratory Exam Respiratory Exam: Clear to Ausculation Bilateral, NORMAL BREATHING PATTERN. absent: Chest Wall Tenderness, Prolonged Expiratory Phase, Wheezes, Respiratory Distress - Cardiovascular Exam Cardiovascular Exam: REGULAR RHYTHM, RRR, +S1, +S2. absent: Gallop, Rubs - GI/Abdominal Exam GI & Abdominal Exam: Soft, Normal Bowel Sounds. absent: Rigid, Hyperactive Bowel Sounds - Extremities Exam Extremities Exam: Full ROM, Normal Inspection. absent: Joint Swelling, Pedal Edema - Back Exam Back Exam: NORMAL INSPECTION. absent: CVA tenderness (L), CVA tenderness (R), paraspinal tenderness - Neurological Exam Neurological Exam: Alert, Awake, CN II-XII Intact Additional comments: CN 2-12 grossly intact, negative Babinski sign, strength upper and lower 5/5 - Psychiatric Exam Psychiatric exam: Normal Affect, Normal Mood - Skin Skin Exam: Dry, Intact, Normal Color, Warm Assessment and Plan - Assessment and Plan (Free Text) Plan: Seizure -Neurology (Dr. Lundberg) -Stable, afebrile -No recorded seizures -Will monitor labs work qweekly (mondays) -Continue Keppra 1000mg PO Q12H -Ativan 1mg Q6H prn seizure activity -EEG: abnormal study, persistent slowing superimposed with multiple movement artifact, lead artifact as well as muscle artifact. During studing, no electroencephalographic paroxysmal activities noted -Brain MRI: no acute intracranial abnormality; bilateral inferior front and left anterior frontal lobe cystic encephalomalacia; mod. global parenchymal volume loss -Head CT: No evidence of an acute intracranial hemorrhage, midline shift or mass effect is identified. Multifocal left mandibular and maxillary periodontal and -periapical lucency with retained roots and multifocal dental carious lesions. There is comminuted fracture deformity of the nasal bones. -Patient was evaluated by Physical Therapy, Occupational Therapy -Continue Seizure precautions, aspiration precautions Alcohol intoxication -No current signs or symptoms of alcohol withdrawal -Continue Thiamine 100 mg PO daily -Continue Folic Acid 1 mg PO daily -Continue Multivitamins PO daily Change in mental status -Folic acid 1mg PO daily -Multivitamin 1 tab PO daily -Thiamine 100mg PO daily -Completed Ativan taper completed 05/24/17 * Per latest Dr. 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 Multifocal left mandibular and maxillary periodontal and -periapical lucency with retained roots and multifocal dental carious lesions. There is comminuted fracture deformity of the nasal bones. * TSH: 1.21 * Vitamin B12: 407 * RPR: nonreactive * Hepatitis panel: negative * HIV: negative Constipation -Continue Colace 100mg BID -Patient reports one bowel movement today of normal consistency. Will continue to monitor bowel function. Prophylactic measure * Pepcid 20mg PO Daily * Patient is awaiting guardianship and assisted living; patient states that he has a cousin (Galdino Manning) in [place] however unable to provide a number or address, states that he lives in [facility]. This information was provided to . Was able to find Galdino Manning in the white pages, however there is a few to get access to contact information, currently awaiting to see if fee can be waived. Per major case detective, No follow up has been done to retrieve cousin's phone number, * At this time, we are awaiting Director of Case Management to send letter to [facility] Family Service Aide who will then send letter to [facility] to start the process of Guardianship. Spoke with Case management this morning and we are still awaiting Guardianship. Will continue to follow.
[2017-06-28] MEDS: Multiple Vitamins Tab PO SCH (09:33)
--- NOTE | 2017-06-28 11:34 | CP.PCM.PN ---
Subjective - Date & Time of Evaluation Date of Evaluation: 06/28/17 Time of Evaluation: 08:34 - Subjective Subjective: Dr. Echevarria's Hospitalist Service, Gigi Deleon, Pile Driver Operator Barge Mounted- PGY-1 Patient was seen and examined at bedside. Per nursing no acute events occurred overnight. The patient was reporting feeling a little cold today. The patient is tolerating diet without any issue. The patient had two bowel movements of normal consistency. The patient denies any chest pain, shortness of breath, fevers, dizziness, abdominal pain, syncopal episodes, changes in vision, headaches, vomiting, nausea, or any other complaints. Objective - Vital Signs/Intake and Output Vital Signs (last 24 hours): Temp Pulse Resp BP Pulse Ox 98.2 F 64 20 99/66 L 100 06/28/17 07:37 06/28/17 07:37 06/28/17 07:37 06/28/17 07:37 06/28/17 07:37 Intake and Output: 06/28/17 06/28/17 06:59 18:59 Intake Total 240 Output Total 400 Balance -160 - Medications Medications: Current Medications Docusate Sodium (Colace) 100 mg PO BID [facility] Last Admin: 06/28/17 09:33 Dose: 100 mg Famotidine (Pepcid) 20 mg PO DAILY [facility] Last Admin: 06/28/17 09:33 Dose: 20 mg Folic Acid (Folic Acid) 1 mg PO DAILY [facility] Last Admin: 06/28/17 09:33 Dose: 1 mg Levetiracetam (Keppra) 1,000 mg PO Q12H [facility] Last Admin: 06/28/17 09:33 Dose: 1,000 mg Lorazepam (Ativan) 1 mg PO Q6H PRN PRN Reason: Seizure activity Multivitamins (Hexavitamin) 1 tab PO DAILY [facility] Last Admin: 06/28/17 09:33 Dose: 1 tab Thiamine HCl (Vitamin B1 Tab) 100 mg PO DAILY [facility] Last Admin: 06/28/17 09:33 Dose: 100 mg - Labs Labs: 06/25/17 07:26 06/25/17 07:26 - Head Exam Head Exam: ATRAUMATIC, NORMAL INSPECTION, NORMOCEPHALIC - Eye Exam Eye Exam: EOMI, Normal appearance, PERRL. absent: Periorbital tenderness Pupil Exam: NORMAL ACCOMODATION, PERRL. absent: Irregular, Unequal - ENT Exam ENT Exam: Mucous Membranes Moist, Normal Exam, Normal Oropharynx - Neck Exam Neck Exam: absent: Lymphadenopathy, Thyromegaly - Respiratory Exam Respiratory Exam: Clear to Ausculation Bilateral, NORMAL BREATHING PATTERN. absent: Chest Wall Tenderness, Respiratory Distress - Cardiovascular Exam Cardiovascular Exam: REGULAR RHYTHM, +S1, +S2 - GI/Abdominal Exam GI & Abdominal Exam: Soft, Normal Bowel Sounds. absent: Rigid, Hyperactive Bowel Sounds - Extremities Exam Extremities Exam: Full ROM, Normal Inspection. absent: Joint Swelling, Pedal Edema, Tenderness - Back Exam Back Exam: NORMAL INSPECTION. absent: CVA tenderness (L), CVA tenderness (R), paraspinal tenderness - Neurological Exam Neurological Exam: Alert, Awake, CN II-XII Intact Additional comments: CN 2-12 grossly intact, negative Babinski sign, strength upper and lower 5/5 - Psychiatric Exam Psychiatric exam: Normal Affect, Normal Mood. absent: Anxious, Depressed - Skin Skin Exam: Dry, Intact, Normal Color, Warm. absent: Diaphoretic Assessment and Plan - Assessment and Plan (Free Text) Plan: Seizure -Neurology (Dr. Lundberg) -Stable, afebrile -No recorded seizures -Will monitor labs work qweekly (mondays) -Continue Keppra 1000mg PO Q12H -Ativan 1mg Q6H prn seizure activity -EEG: abnormal study, persistent slowing superimposed with multiple movement artifact, lead artifact as well as muscle artifact. During studing, no electroencephalographic paroxysmal activities noted -Brain MRI: no acute intracranial abnormality; bilateral inferior front and left anterior frontal lobe cystic encephalomalacia; mod. global parenchymal volume loss -Head CT: No evidence of an acute intracranial hemorrhage, midline shift or mass effect is identified. Multifocal left mandibular and maxillary periodontal and -periapical lucency with retained roots and multifocal dental carious lesions. There is comminuted fracture deformity of the nasal bones. -Patient was evaluated by Physical Therapy, Occupational Therapy -Continue Seizure precautions, aspiration precautions Alcohol intoxication -No current signs or symptoms of alcohol withdrawal -Continue Thiamine 100 mg PO daily -Continue Folic Acid 1 mg PO daily -Continue Multivitamins PO daily Change in mental status -Folic acid 1mg PO daily -Multivitamin 1 tab PO daily -Thiamine 100mg PO daily -Completed Ativan taper completed 05/24/17 * Per latest Dr. 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 Multifocal left mandibular and maxillary periodontal and -periapical lucency with retained roots and multifocal dental carious lesions. There is comminuted fracture deformity of the nasal bones. * TSH: 1.21 * Vitamin B12: 407 * RPR: nonreactive * Hepatitis panel: negative * HIV: negative -Patient requesting re-evaluation from Psychiatry. Psychiatry made aware. Will f /u with results. Constipation -Continue Colace 100mg BID -Patient reports one bowel movement today of normal consistency. Will continue to monitor bowel function. Prophylactic measure * Pepcid 20mg PO Daily * Patient is awaiting guardianship and assisted living; patient states that he has a cousin (Galdino Manning) in [place] however unable to provide a number or address, states that he lives in [facility]. This information was provided to . Was able to find Galdino Manning in the white pages, however there is a few to get access to contact information, currently awaiting to see if fee can be waived. Per registered nurse hh case manager, No follow up has been done to retrieve cousin's phone number, * At this time, we are awaiting Director of Case Management to send letter to [facility] Soil Fertility Specialist who will then send letter to [facility] to start the process of Guardianship. Spoke with Case management this morning and we are still awaiting Guardianship.
[2017-06-29 08:02] VITALS: RESP 20
[2017-06-29] MEDS: Multiple Vitamins Tab PO SCH (09:38)
[2017-06-29 16:09] VITALS: BP 99/66; PULSE 82; TEMP 97.4; O2SAT 100
--- NOTE | 2017-06-29 18:09 | CP.PCM.DIS ---
<Gigi Deleon - Last Filed: 06/29/17 19:51> Provider - Provider Date of Admission: 05/22/17 00:45 Attending physician: Juliet Echevarria DO Primary care physician: PMD: Unknown Consults: Neurology: Dr. Lundberg Psychiatry: Dr. Mcgee Time Spent in preparation of Discharge (in minutes): 45 Hospital Course - Lab Results Lab Results: Micro Results 05/24/17 Unknown Naris MRSA Culture - Final MRSA NOT DETECTED 05/22/17 08:00 Naris MRSA Culture (Admit) - Final MRSA NOT DETECTED Most Recent Lab Values WBC 5.5 K/uL (4.8-10.8) 06/25/17 07:26 RBC 4.78 Mil/uL (4.40-5.90) 06/25/17 07:26 Hgb 14.5 g/dL (12.0-18.0) 06/25/17 07:26 Hct 43.2 % (35.0-51.0) 06/25/17 07:26 MCV 90.3 fL (80.0-94.0) 06/25/17 07:26 MCH 30.4 pg (27.0-31.0) 06/25/17 07:26 MCHC 33.7 g/dL (33.0-37.0) 06/25/17 07:26 RDW 14.2 % (11.5-14.5) 06/25/17 07:26 Plt Count 176 K/uL (130-400) 06/25/17 07:26 MPV 10.5 fL (7.2-11.7) 06/25/17 07:26 Neut % (Auto) 53.8 % (50.0-75.0) 06/25/17 07:26 Lymph % (Auto) 35.1 % (20.0-40.0) 06/25/17 07:26 [place] % (Auto) 7.8 % (0.0-10.0) 06/25/17 07:26 Eos % (Auto) 2.7 % (0.0-4.0) 06/25/17 07:26 Baso % (Auto) 0.6 % (0.0-2.0) 06/25/17 07:26 Neut # 2.9 K/uL (1.8-7.0) 06/25/17 07:26 Lymph # 1.9 K/uL (1.0-4.3) 06/25/17 07:26 [place] # 0.4 K/uL (0.0-0.8) 06/25/17 07:26 Eos # 0.2 K/uL (0.0-0.7) 06/25/17 07:26 Baso # 0.0 K/uL (0.0-0.2) 06/25/17 07:26 Sodium 135 mmol/L (132-148) 06/25/17 07:26 Potassium 4.5 mmol/L (3.6-5.2) 06/25/17 07:26 Chloride 97 mmol/L (98-107) L 06/25/17 07:26 Carbon Dioxide 32 mmol/L (22-30) H 06/25/17 07:26 Anion Gap 10 (10-20) 06/25/17 07:26 BUN 15 mg/dL (9-20) 06/25/17 07:26 Creatinine 0.9 mg/dL (0.8-1.5) 06/25/17 07:26 Est GFR ( Amer) > 60 06/25/17 07:26 Est GFR (Non-Af Amer) > 60 06/25/17 07:26 POC Glucose (mg/dL) 89 mg/dL (65-110) 05/24/17 12:10 Random Glucose 86 mg/dL (75-110) 06/25/17 07:26 Calcium 8.9 mg/dl (8.6-10.4) 06/25/17 07:26 Phosphorus 2.5 mg/dL (2.5-4.5) 05/28/17 11:40 Magnesium 1.8 mg/dL (1.6-2.3) 05/28/17 11:40 Total Bilirubin 0.4 mg/dL (0.2-1.3) 06/25/17 07:26 AST 21 U/L (17-59) 06/25/17 07:26 ALT 28 U/L (21-72) 06/25/17 07:26 Alkaline Phosphatase 46 U/L (38-126) 06/25/17 07:26 Total Protein 7.0 g/dL (6.3-8.3) 06/25/17 07:26 Albumin 4.1 g/dL (3.5-5.0) 06/25/17 07:26 Globulin 2.8 gm/dL (2.2-3.9) 06/25/17 07:26 Albumin/Globulin Ratio 1.5 (1.0-2.1) 06/25/17 07:26 Vitamin B1 193 nmol/L (78-185) H 05/25/17 07:39 Vitamin B12 407 pg/mL (239-931) 05/25/17 07:39 Folate 11.7 ng/mL 05/25/17 07:39 Free T4 1.05 ng/dL (0.78-2.19) 05/25/17 07:39 TSH 3rd Generation 1.21 mIU/L (0.46-4.68) 05/25/17 07:39 Urine Color Yellow (YELLOW) 05/22/17 02:59 Urine Clarity Clear (Clear) 05/22/17 02:59 Urine pH 5.0 (5.0-8.0) 05/22/17 02:59 Ur Specific [place] 1.025 (1.003-1.030) 05/22/17 02:59 Urine Protein 1+ mg/dL (NEGATIVE) H 05/22/17 02:59 Urine Glucose (UA) Normal mg/dL (Normal) 05/22/17 02:59 Urine Ketones Negative mg/dL (NEGATIVE) 05/22/17 02:59 Urine Blood Negative (NEGATIVE) 05/22/17 02:59 Urine Nitrate Negative (NEGATIVE) 05/22/17 02:59 Urine Bilirubin Negative (NEGATIVE) 05/22/17 02:59 Urine Urobilinogen Normal mg/dL (0.2-1.0) 05/22/17 02:59 Ur Leukocyte Esterase Neg Brad/uL (Negative) 05/22/17 02:59 Urine WBC (Auto) 1 /hpf (0-5) 05/22/17 02:59 Urine RBC (Auto) < 1 /hpf (0-3) 05/22/17 02:59 Ur Squamous Epith Cells < 1 /hpf (0-5) 05/22/17 02:59 Hyaline Casts 0-2 /lpf (0-2) 05/22/17 02:59 Salicylates < 1.0 mg/dL 1 05/21/17 23:18 Urine Opiates Screen Negative (NEGATIVE) 05/22/17 01:56 Urine Methadone Screen Negative (NEGATIVE) 05/22/17 01:56 Acetaminophen < 10.0 ug/mL (10.0-30.0) L 05/21/17 23:18 Ur Barbiturates Screen Negative (NEGATIVE) 05/22/17 01:56 Free Phenytoin <0.5 mg/L (1.0-2.0) L 05/28/17 11:40 Ur Phencyclidine Scrn Negative (NEGATIVE) 05/22/17 01:56 Ur Amphetamines Screen Negative (NEGATIVE) 05/22/17 01:56 U Benzodiazepines Scrn Negative (NEGATIVE) 05/22/17 01:56 U Oth Cocaine Metabols Negative (NEGATIVE) 05/22/17 01:56 U Cannabinoids Screen Negative (NEGATIVE) 05/22/17 01:56 Alcohol, Quantitative < 10 mg/dl (0-10) 05/21/17 23:18 RPR Nonreactive (NONREACTIVE) 05/25/17 07:39 Hepatitis A IgM Ab Negative (NEGATIVE) 05/25/17 07:39 Hep Bs Antigen Negative (NEGATIVE) 05/25/17 07:39 Hep B Core IgM Ab Negative (NEGATIVE) 05/25/17 07:39 Hepatitis C Antibody Negative (NEGATIVE) 05/25/17 07:39 HIV 1&2 Antibody Screen Negative (NEGATIVE) 05/25/17 07:39 - Hospital Course Hospital Course: PMD: none Consults: Psychiatry (Dr. Mcgee), Neurology (Dr. Lundberg) PRINCIPAL DISCHARGE DIAGNOSES: Seizure Alcohol intoxication Altered mental status Constipation CC: Seizure HISTORY OF PRESENT ILLNESS: 46M with PMH of seizures presents to the ED via ambulance for witnessed seizure. Patient was post ictal and unresponsive in the ED and had 2 additional seizures in the ED. Patient was given ativan 2 mg after the second seizure and he continues to be unresponsive however he moves with painful stimuli. ROS unattainable. PMH: alcoholism per EMR SUMMARY OF COURSE: Gaye Gao is a 46-year-old male who was admitted to [facility] on 05/22/2017-06/29/2017 for altered mental status following a seizure. His medical history is notable for seizures and alcohol use disorder. While at the hospital, he was given anticonvulsant medications and had diagnostic imaging. Psychiatry and neurology were consulted. Imaging study results are stated below. In May, Psychiatry consult, Dr. Mcgee, said that Mr. Gao did not have any capacity to make any medical decisions but upon reevaluation after medical treatment, he said that Mr. Gao now has the capacity to make medical decisions. Neurology consult, Dr. Lundberg, said that he was clinically stable, to continue Keppra and follow up as an outpatient. Patient was given referrals for homeless shelters and was educated on alcohol use. Upon discharge patient was given a list of Shelters in the area. The patient says that he would be returning to [place] upon discharge. Also advised the patient to follow up with Neurology as an outpatient (wrote down the number of Dr. Lundberg and gave it to the patient along with the address). Imaging: Chest X-Ray 05/21/17: Minimal patchy increased markings at the left lung base which may represent minimal atelectasis versus subtle infiltrate. Question minimal blunting of the left costophrenic angle. Clinical correlation. ECG 05/21/17: Normal sinus rhythm. Normal ECG. Head CT w/o Contrast 05/21/17: No evidence of an acute intracranial hemorrhage, midline shift or mass effect is identified. Multifocal left mandibular and maxillary periodontal and periapical lucency with retained roots and multifocal dental carious lesions. There is comminuted fracture deformity of the nasal bones. Correlation with patients clinical examination and history may be helpful. Chest X-Ray 05/23/17: Re-demonstrated are metallic clips in the right lung base with what probably represent chronic scarring in the right mid to lower lung field. Slight volume loss right mid to lower lung field as well. No focal consolidation. Electroencephalogram 05/24/17: This is an abnormal electroencephalogram because of persistent slowing superimposed with multiple movement artifact, lead artifact as well as muscle artifact. During the study, there is no electroencephalographic, neurological and radiological studies. Brain MRI w/ Contrast 05/24/17: No acute intracranial abnormality. Bilateral inferior frontal and left anterior frontal lobe cystic encephalomalacia. Moderate global parenchymal volume loss, advanced for the patients age. DISCHARGE MEDICATIONS: Docusate [Colace] 100 mg PO BID Folic Acid 1 mg PO daily Levetiracetam [Keppra] 1,000 mg PO Q12 Multivitamins 1 each PO daily Thiamine [Vitamin B1] 100 mg PO daily Discharge Exam - Head Exam Head Exam: ATRAUMATIC, NORMAL INSPECTION, NORMOCEPHALIC - Eye Exam Eye Exam: EOMI, Normal appearance, PERRL Pupil Exam: NORMAL ACCOMODATION, PERRL. absent: Irregular, Unequal - ENT Exam ENT Exam: Mucous Membranes Moist, Normal Oropharynx - Respiratory Exam Respiratory Exam: Accessory Muscle Use, NORMAL BREATHING PATTERN, UNREMARKABLE. absent: Decreased Breath Sounds, Rales, Rhonchi - Cardiovascular Exam Cardiovascular Exam: REGULAR RHYTHM, RRR, +S1, +S2. absent: Gallop, Rubs - GI/Abdominal Exam GI & Abdominal Exam: Normal Bowel Sounds, Soft, Unremarkable. absent: Tenderness - Extremities Exam Extremities exam: full ROM - Back Exam Back exam: NORMAL INSPECTION. absent: CVA tenderness (L), CVA tenderness (R), paraspinal tenderness - Neurological Exam Neurological exam: Alert, CN II-XII Intact, Normal Gait, Oriented x3 - Psychiatric Exam Psychiatric exam: Normal Affect, Normal Mood - Skin Skin Exam: Dry, Normal Color, Warm Discharge Plan - Discharge Medications Prescriptions: Docusate [Colace] 100 mg PO BID #60 cap RX: Folic Acid 1 mg PO DAILY #30 tab Levetiracetam [Keppra] 1,000 mg PO Q12 #28 tab RX: Multivitamin [Multivitamins] 1 each PO DAILY #30 capsule RX: Thiamine [Vitamin B1 Tab] 100 mg PO DAILY #30 tab - Follow Up Plan Condition: GOOD Disposition: HOME/ ROUTINE Instructions: Thiamine (Vitamin B-1) (By mouth), Folic Acid (By mouth), Laxative, Stool Softeners (By mouth), Multivitamins, Adult Formula (By mouth), Levetiracetam (By mouth), Alcohol Intoxication (DC), Abuse of Alcohol (DC), Recurrent Seizures in Adults (DC), New-Onset Seizure in Adults (DC) Additional Instructions: Advised patient to follow up with PMD within one week of discharge. Advised patient to follow up with Neurology as an outpatient. Patient given referral for Neurologist upon discharge. Patient provided a list of shelters. Patient states he lives in [place] and will be going back upon discharge. Advised patient to return to emergency room for any new or worsening symptoms. Discharge Medications: 1. Keppra 1000mg PO Q12, #28 2. Colace 100mg PO BID, #60 3. Multivitamin 1tab PO Daily, #30 4. Thiamine 100mg PO Daily, #30 5. Folic Acid 1mg PO Daily, #30 <Juliet Echevarria V - Last Filed: 06/29/17 23:13> Provider - Provider Date of Admission: 05/22/17 00:45 Attending physician: Juliet Echevarria, Hospital Course - Lab Results Lab Results: Micro Results 05/24/17 Unknown Naris MRSA Culture - Final MRSA NOT DETECTED 05/22/17 08:00 Naris MRSA Culture (Admit) - Final MRSA NOT DETECTED Most Recent Lab Values WBC 5.5 K/uL (4.8-10.8) 06/25/17 07:26 RBC 4.78 Mil/uL (4.40-5.90) 06/25/17 07:26 Hgb 14.5 g/dL (12.0-18.0) 06/25/17 07:26 Hct 43.2 % (35.0-51.0) 06/25/17 07:26 MCV 90.3 fL (80.0-94.0) 06/25/17 07:26 MCH 30.4 pg (27.0-31.0) 06/25/17 07:26 MCHC 33.7 g/dL (33.0-37.0) 06/25/17 07:26 RDW 14.2 % (11.5-14.5) 06/25/17 07:26 Plt Count 176 K/uL (130-400) 06/25/17 07:26 MPV 10.5 fL (7.2-11.7) 06/25/17 07:26 Neut % (Auto) 53.8 % (50.0-75.0) 06/25/17 07:26 Lymph % (Auto) 35.1 % (20.0-40.0) 06/25/17 07:26 [place] % (Auto) 7.8 % (0.0-10.0) 06/25/17 07:26 Eos % (Auto) 2.7 % (0.0-4.0) 06/25/17 07:26 Baso % (Auto) 0.6 % (0.0-2.0) 06/25/17 07:26 Neut # 2.9 K/uL (1.8-7.0) 06/25/17 07:26 Lymph # 1.9 K/uL (1.0-4.3) 06/25/17 07:26 [place] # 0.4 K/uL (0.0-0.8) 06/25/17 07:26 Eos # 0.2 K/uL (0.0-0.7) 06/25/17 07:26 Baso # 0.0 K/uL (0.0-0.2) 06/25/17 07:26 Sodium 135 mmol/L (132-148) 06/25/17 07:26 Potassium 4.5 mmol/L (3.6-5.2) 06/25/17 07:26 Chloride 97 mmol/L (98-107) L 06/25/17 07:26 Carbon Dioxide 32 mmol/L (22-30) H 06/25/17 07:26 Anion Gap 10 (10-20) 06/25/17 07:26 BUN 15 mg/dL (9-20) 06/25/17 07:26 Creatinine 0.9 mg/dL (0.8-1.5) 06/25/17 07:26 Est GFR ( Amer) > 60 06/25/17 07:26 Est GFR (Non-Af Amer) > 60 06/25/17 07:26 POC Glucose (mg/dL) 89 mg/dL (65-110) 05/24/17 12:10 Random Glucose 86 mg/dL (75-110) 06/25/17 07:26 Calcium 8.9 mg/dl (8.6-10.4) 06/25/17 07:26 Phosphorus 2.5 mg/dL (2.5-4.5) 05/28/17 11:40 Magnesium 1.8 mg/dL (1.6-2.3) 05/28/17 11:40 Total Bilirubin 0.4 mg/dL (0.2-1.3) 06/25/17 07:26 AST 21 U/L (17-59) 06/25/17 07:26 ALT 28 U/L (21-72) 06/25/17 07:26 Alkaline Phosphatase 46 U/L (38-126) 06/25/17 07:26 Total Protein 7.0 g/dL (6.3-8.3) 06/25/17 07:26 Albumin 4.1 g/dL (3.5-5.0) 06/25/17 07:26 Globulin 2.8 gm/dL (2.2-3.9) 06/25/17 07:26 Albumin/Globulin Ratio 1.5 (1.0-2.1) 06/25/17 07:26 Vitamin B1 193 nmol/L (78-185) H 05/25/17 07:39 Vitamin B12 407 pg/mL (239-931) 05/25/17 07:39 Folate 11.7 ng/mL 05/25/17 07:39 Free T4 1.05 ng/dL (0.78-2.19) 05/25/17 07:39 TSH 3rd Generation 1.21 mIU/L (0.46-4.68) 05/25/17 07:39 Urine Color Yellow (YELLOW) 05/22/17 02:59 Urine Clarity Clear (Clear) 05/22/17 02:59 Urine pH 5.0 (5.0-8.0) 05/22/17 02:59 Ur Specific [place] 1.025 (1.003-1.030) 05/22/17 02:59 Urine Protein 1+ mg/dL (NEGATIVE) H 05/22/17 02:59 Urine Glucose (UA) Normal mg/dL (Normal) 05/22/17 02:59 Urine Ketones Negative mg/dL (NEGATIVE) 05/22/17 02:59 Urine Blood Negative (NEGATIVE) 05/22/17 02:59 Urine Nitrate Negative (NEGATIVE) 05/22/17 02:59 Urine Bilirubin Negative (NEGATIVE) 05/22/17 02:59 Urine Urobilinogen Normal mg/dL (0.2-1.0) 05/22/17 02:59 Ur Leukocyte Esterase Neg Brad/uL (Negative) 05/22/17 02:59 Urine WBC (Auto) 1 /hpf (0-5) 05/22/17 02:59 Urine RBC (Auto) < 1 /hpf (0-3) 05/22/17 02:59 Ur Squamous Epith Cells < 1 /hpf (0-5) 05/22/17 02:59 Hyaline Casts 0-2 /lpf (0-2) 05/22/17 02:59 Salicylates < 1.0 mg/dL 1 05/21/17 23:18 Urine Opiates Screen Negative (NEGATIVE) 05/22/17 01:56 Urine Methadone Screen Negative (NEGATIVE) 05/22/17 01:56 Acetaminophen < 10.0 ug/mL (10.0-30.0) L 05/21/17 23:18 Ur Barbiturates Screen Negative (NEGATIVE) 05/22/17 01:56 Free Phenytoin <0.5 mg/L (1.0-2.0) L 05/28/17 11:40 Ur Phencyclidine Scrn Negative (NEGATIVE) 05/22/17 01:56 Ur Amphetamines Screen Negative (NEGATIVE) 05/22/17 01:56 U Benzodiazepines Scrn Negative (NEGATIVE) 05/22/17 01:56 U Oth Cocaine Metabols Negative (NEGATIVE) 05/22/17 01:56 U Cannabinoids Screen Negative (NEGATIVE) 05/22/17 01:56 Alcohol, Quantitative < 10 mg/dl (0-10) 05/21/17 23:18 RPR Nonreactive (NONREACTIVE) 05/25/17 07:39 Hepatitis A IgM Ab Negative (NEGATIVE) 05/25/17 07:39 Hep Bs Antigen Negative (NEGATIVE) 05/25/17 07:39 Hep B Core IgM Ab Negative (NEGATIVE) 05/25/17 07:39 Hepatitis C Antibody Negative (NEGATIVE) 05/25/17 07:39 HIV 1&2 Antibody Screen Negative (NEGATIVE) 05/25/17 07:39 Attending/Attestation - Attestation I have personally seen and examined this patient.: Yes I have fully participated in the care of the patient.: Yes I have reviewed all pertinent clinical information, including history, physical exam and plan: Yes Notes (Text): Patient seen, examined, and case discussed with day-time resident. Patient is requesting to be re-evaluated by psychiatrist today. He reports he would like to leave. I have discussed with psychiatrist given has requested to be re-evaluated given that he feels better compared to when he first came in. Dr Mcgee came and re-evaluated the patient today, discussed and reports patient is improved significantly compared to when he first came on and evaluated by his initial assessment on 05/28/17 and he is safe to be discharged. Resident has spoken with case management given psychiatrist reassessment and clearance for discharge to arrange for discharge planning including list of shelters, medication prescriptions, and referrals to neurologist upon discharge and alcohol counselling provided. Discharge Diagnoses: 1) Colace 100mg PO BID 2) Folic acid 1mg PO daily 3) Keppra 100mg PO BID 4) MVI 1 tab PO daily 5) Thiamine 100mg Po daily This is a summary of patient's hospitalization. Please refer to EMR for further details. Discharge Diagnoses: (1) Seizure-->Stable; Chronic Assessment & Plan: * Neurology (Dr. Lundberg) on board-->help appreciated * Had recommend if stable for 24hour period for discharge and should have follow-up visit as outpatient * Stable, afebrile * Continue Keppra 1000mg PO Q12H * EEG: abnormal study, persistent slowing superimposed with multiple movement artifact, lead artifact as well as muscle artifact. 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 global parenchymal volume loss * Head CT: No evidence of an acute intracranial hemorrhage, midline shift or mass effect is identified. Multifocal left mandibular and maxillary periodontal and -periapical lucency with retained roots and multifocal dental carious lesions. There is comminuted fracture deformity of the nasal bones. * Physical Therapy, Occupational Therapy seen and evaluated. * Seizure precautions, aspiration precautions (2) Alcohol intoxication-->Resolved Assessment & Plan: * Ativan taper completed 05/24/17 * No current signs or symptoms of alcohol withdrawal * Continue Thiamine 100 mg PO daily * Continue Folic Acid 1 mg PO daily * Continue Multivitamins PO daily * 05/21 ER visit for alcohol abuse/sever intoxication Status: Suspected (3) Change in mental status--Stable Assessment & Plan: * Contributing: alcohol abuse, seizure * Folic acid 1mg PO daily * MVI 1 tab PO daily * Thiamine 100mg PO daily * Completed Ativan taper completed 05/24/17 * Per re-evaluation by psychiatrist today, patient stable from psych standpoint for discharge. Discussed with Dr. Mcgee today 06/29/17 following his initial assessment on 05/28/17. * Brain MRI: no acute intracranial abnormality; bilateral inferior front and left anterior frontal lobe cystic encephalomalacia; mod. global parenchymal volume loss * Head CT: No evidence of an acute intracranial hemorrhage, midline shift or mass effect is identified. Multifocal left mandibular and maxillary periodontal and -periapical lucency with retained roots and multifocal dental carious lesions. There is comminuted fracture deformity of the nasal bones. * TSH: 1.21 * Vitamin B12: 407 * RPR: nonreactive * Hepatitis panel: negative * HIV: negative
--- NOTE | 2017-06-29 23:56 | PCM.PYCHPN ---
Psychiatric Progress Note - Psychiatric Progress Note Patient seen today, length of contact: 15 min Patient Chief Complaint: I'm fine Problems Identified/Issues Discussed: Patient seen and evaluated, chart reviewed and discussed with the nurse. Pt appears more organized and kempt than before. He reports that he is single, living alone in [place] and used to work in a [employer] body. He says that he remembered, he had a seizure before admitting in this hospital. He denies any AVH and denies any SI/HI. Patient is compliant with medications and denies any side effects. Support and psychoeducation given. Medication Change: No Medical Record Reviewed: Yes Mental Status Examination - Cognitive Function Orientation: Person, Place, Situation, Time Memory: Intact Attention: WNL Concentration: WNL Association: WNL Fund of Knowledge: WNL - Mood Mood: Anxious - Affect Affect: Constricted - Speech Speech: Soft - Formal Thought Process Formal Thought Process: No Impairment - Suicidal Ideation Suicidal Ideation: No - Homicidal Ideation Homicidal Ideation: No Goal/Treatment Plan - Goal/Treatment Plan Need for Continued Stay: Other Progress Toward Problem(s) and Goals/Treatment Plan: Pt psychiatrically stable and clear for discharge. - Smoking Cessation Smoking Cessation Initiated: No
== END 2017-06-29 18:50 | disposition home or self-care (01) | DRG 889 ==
LOC: C.ER 22:38 → C.9E 05-22 00:45 → C.9I 05-22 03:47 → C.6T 05-24 13:33
PROVIDERS: ADMIT Family Medicine; ATTEND Hospitalist
PROC: 3E0234Z Introduction of Serum, Toxoid and Vaccine into Muscle, Percutaneous Approach (ICD-10-PCS; principal; 2017-06-12)
PROC: HZ2ZZZZ Detoxification Services for Substance Abuse Treatment (ICD-10-PCS; 2017-06-12)
DX: G40.909 Epilepsy, unspecified, not intractable, without status epilepticus (principal); F10.239 Alcohol dependence with withdrawal, unspecified; F03.90 Unspecified dementia, unspecified severity, without behavioral disturbance, psychotic disturbance, mood disturbance, and anxiety; F10.230 Alcohol dependence with withdrawal, uncomplicated; F80.9 Developmental disorder of speech and language, unspecified; K59.00 Constipation, unspecified; Z79.899 Other long term (current) drug therapy; Z23 Encounter for immunization; Y90.0 Blood alcohol level of less than 20 mg/100 ml